=== PATIENT | male | born 1950 | race Caucasian/White ===

== ENCOUNTER 2018-01-14 06:12 | Outpatient (CLI) | payer MEDICARE ==
[~2018-01-14] VITALS: Ht 177.8 cm; Wt 70.3 kg
[2018-01-14] MEDS ORDERED: ALBU1.25 IH (12:38)
[2018-01-14] MEDS ORDERED: FLUT1BLS3 IH (12:38)
[2018-01-14] MEDS ORDERED: ASPI-999 PO (12:38)
[2018-01-14] MEDS ORDERED: CALC-250 PO (12:38)
[2018-01-14] MEDS ORDERED: PRAV40TA2 PO (12:38)
[2018-01-14] MEDS ORDERED: MIRT15TA6 PO (12:38)
[2018-01-14] MEDS ORDERED: MULT-35 PO (12:38)
[2018-01-14] MEDS ORDERED: OMEP20TA7 PO (12:38)
[2018-01-14] MEDS ORDERED: MONT10TA24 PO (12:38)
[2018-01-14] MEDS ORDERED: METO-387 PO (12:38)
[2018-01-14] MEDS ORDERED: FLUT9.9S NS (12:38)
== END 2018-01-14 12:43 | disposition home or self-care (01) ==
LOC: PREOP 06:12
PROVIDERS: ATTEND Internal Medicine Critical Care Medicine
DX: Z01.818 Encounter for other preprocedural examination (principal)

== ENCOUNTER 2018-01-15 08:06 | Day surgery (SDC) | payer MEDICARE, OTHER ==
[~2018-01-15] VITALS: Ht 177.8 cm; Wt 70.3 kg
[~2018-01-15 08:06] MED LIST: ALBU1.25 IH; ASPI-999 PO; CALC-250 PO; FLUT1BLS3 IH; FLUT9.9S NS; METO-387 PO; MIRT15TA6 PO; MONT10TA24 PO; MULT-35 PO; OMEP20TA7 PO; PRAV40TA2 PO
[2018-01-15] MEDS ORDERED: LIDOCAINE JELLY 2% (XYLOCAINE) 30 ML TUBE TOP ONE (08:07)
[2018-01-15] MEDS ORDERED: LIDOCAINE PF 1% 5 ML SYRINGE (ANLIKER/BAILEY ONLY) INJ ONE (08:07)
[2018-01-15] MEDS ORDERED: LIDOCAINE PF 2% 5 ML (XYLOCAINE) VIAL INJ ONE (08:07)
--- OUTSIDE RECORDS SUMMARY | 2018-01-15 08:09 | XMS REPORT | CCD ---
Author Author ROSEMARIE JENNIFER Organization Unknown Address [address] [facility] [address] [place], [place] [id number] Care Team Providers Care Show Host/Hostess Name Role Phone TURNER HORTON, KERRI Suh Attphys KERRI TOMPKINS MD Prisujamaal Vital Signs Unknown or Not Available. Allergies Unknown or Not Available. Procedures Procedure Code Procedure Type Date CX CHEST [address] 03/22/2015 UA ROUTINE C&S IF IND 647590730 SNOMED CT 03/22/2015 TROPONIN-I ADV 282256872 SNOMED CT 03/22/[address] 03/22/2015 D DIMER QUANT 818811999 SNOMED CT 03/22/2015 CULTURE BLOOD 77295070 SNOMED CT 03/22/2015 COMPREHENSIVE METABOLIC PANEL 789739466 SNOMED CT 2014 CBC W/ AUTO DIFF (RFLX MAN DIFF IF IND) 8053812 SNOMED CT 03/22/[address] 03/22/2015 BAN AERO ECLIPSE TREATMENT 82838555 SNOMED CT 03/22/2015 ^CBC W/AUTO DIFF 2230424 SNOMED CT 03/22/2015 ^UA AUTO DIPSTICK ONLY 604145551 SNOMED CT 03/22/2015 History of Immunizations Unknown or Not Available. Problems Problem Code Start Date Resolved Date Status COPD EXACERBATION 44693 Active Results COMPREHENSIVE METABOLIC PANEL - Collect Date/Time: 03/22/2015 21:00 Test Name Code Test Result Test Units Test Ref Range GLUCOSE 2345-7 93 MG/DL L=70 H=100 SODIUM 2951-2 145 MEQ/L L=135 H=148 POTASSIUM 2823-3 3.6 MEQ/L L=3.5 H=5.3 CHLORIDE 2075-0 99 MEQ/L L=96 H=110 CO2 2028-9 36 MEQ/L L=22 H=29 BUN 3094-0 7 MG/DL L=8 H=22 CREATININE 2160-0 1.0 MG/DL L=0.6 H=1.6 SGOT/AST 1920-8 35 IU/L L=10 H=40 SGPT/ALT 1742-6 32 IU/L L=8 H=54 ALK PHOS 6768-6 94 IU/L L=35 H=115 TOTAL PROTEIN 2885-2 7.7 G/DL L=5.5 H=8.5 ALBUMIN 1751-7 4.6 G/DL L=3.1 H=5.4 TOTAL BILI 1975-2 0.3 MG/DL L=0.0 H=1.5 CALCIUM 03800-0 9.6 MG/DL L=8.2 H=10.6 AGE 64 yrs GFR NonAA 76 GFR AA 92 eGFR >60 N/A eGFR AA* >60 N/A CBC W/ AUTO DIFF (RFLX MAN DIFF IF IND) - Collect Date/Time: 03/22/2015 21:00 Test Name Code Test Result Test Units Test Ref Range WBC 10778-5 6.8 TH/CMM L=4.5 H=10.8 RBC 789-8 5.30 ML/CMM L=4.70 H=6.10 HGB 718-7 16.0 G/DL L=14.0 H=18.0 HCT 4544-3 49.7 % L=42.0 H=52.0 MCV 94 FL L=81 H=99 MCH 30.2 PG L=27.0 H=33.0 MCHC 32.2 G/DL L=31.0 H=36.0 RDW SD 49 FL L=36 H=50 RDW CV 14.1 % L=0.0 H=14.8 MPV 10.6 FL L=9.3 H=12.5 PLT 777-3 150 TH/CMM L=130 H=440 NRBC# 0.00 TH/CMM L=0.00 H=0.00 NRBC% 0.0 /100WBC L=0.0 H=2.0 %NEUT 76.8 % %LYMP 10.4 % %MONO 11.9 % %EOS 0.6 % %BASO 0.3 % #NEUT 5.24 TH/CMM L=2.10 H=8.20 #LYMP 0.71 TH/CMM L=0.90 H=5.20 #MONO 0.81 TH/CMM L=0.16 H=1.00 #EOS 0.04 TH/CMM L=0.00 H=0.80 #BASO 0.02 TH/CMM L=0.00 H=0.20 MANUAL DIFF NOT IND N/A D DIMER QUANT - Collect Date/Time: 03/22/2015 21:00 Test Name Code Test Result Test Units Test Ref Range D-DIMER QUANT 03115-8 0.23 MG/L FEU L=0.00 H= 0.50 PT/PTT - Collect Date/Time: 03/22/2015 21:00 Test Name Code Test Result Test Units Test Ref Range PROTIME 90955-8 11.7 SEC L=9.9 H=11.9 INR 1.2 PTT 3173-2 27.8 SEC L=22.2 H=37.2 UA ROUTINE C&S IF IND - Collect Date/Time: 03/22/2015 22:30 Test Name Code Test Result Test Units Test Ref Range COLOR YELLOW N/A NL: YELLOW APPEARANCE CLEAR N/A NL: CLEAR SPEC GRAV <=1.005 N/A NL: 1.002 - 1.022 pH 7.0 N/A NL: 5 - 9 PROTEIN NEGATIVE N/A NL: NEGATIVE mg/dl GLUCOSE NEGATIVE N/A NL: NEGATIVE mg/dl KETONE NEGATIVE N/A NL: NEGATIVE mg/dl BILIRUBIN NEGATIVE N/A NL: NEGATIVE BLOOD NEGATIVE N/A NL: NEGATIVE NITRITE NEGATIVE N/A NL: NEGATIVE LEUK SCREEN NEGATIVE N/A NL: NEGATIVE MICRO INDICATED? NOT INDICATED N/A BNP - Collect Date/Time: 03/22/2015 21:00 Test Name Code Test Result Test Units Test Ref Range BNP 67033-6 19 PG/ML L=0 H=100 TROPONIN-I ADV - Collect Date/Time: 03/22/2015 21:00 Test Name Code Test Result Test Units [place] [address]-3 <0.04 ng/mL L=0.04 H= 0.40 MAGNESIUM - Collect Date/Time: 03/22/2015 21:00 Test Name Code Test Result Test Units Test Ref Range MAGNESIUM 16109-0 2.2 MG/DL L=1.7 H=2.8 Active Medications Unknown or Not Available. Medications Administered During Visit Unknown or Not Available. Encounters Encounter Diagnosis Diagnosis Code Start Date Localized edema R600 03/22/2015 Social History Smoking Status Code Start Date End Date Never smoker [id number] Patient Decision Aids Unknown or Not Available. Discharge Instructions You were admitted to [facility] on 03/22/2015 with a principal diagnosis of Localized edema. You were discharged from [facility] on 03/22/2015. Should you have any questions prior to discharge, please contact a member of your healthcare team. If you have left the hospital and have any questions, please contact your primary care physician. Chief Complaint and Reason For Visit Chief Complaint Date of Onset FEET SWELLING URINARY PROBLEM Function Status Unknown or Not Available. Plan of Care Unknown or Not Available. Referral/Transition of Care Unknown or Not Available.
--- OUTSIDE RECORDS SUMMARY | 2018-01-15 08:10 | XMS REPORT | CCD ---
Author Author LATIA FIELDS Organization Unknown Address [address] [facility] [address] [place], [place] [id number] Care Team Providers Care Shuttle Repairer Name Role Phone MISA PHYS, SOFIA ER Attphys MISA PHYS, SOFIA ER Prisurg Vital Signs Unknown or Not Available. Allergies Unknown or Not Available. Procedures Procedure Code Procedure Type Date CBC W/ AUTO DIFF (RFLX MAN DIFF IF IND) 7766466 SNOMED CT 04/05/2015 COMPREHENSIVE METABOLIC PANEL 450656199 SNOMED CT 2014 UA ROUTINE C&S IF IND 780294869 SNOMED CT 04/05/2015 ^CBC W/AUTO DIFF 4584505 SNOMED CT 04/05/2015 ^UA AUTO DIPSTICK ONLY 249991690 SNOMED CT 04/05/2015 CT ABD AND PELVIS W/O CONTRAST 224583846 SNOMED CT 2014 History of Immunizations Unknown or Not Available. Problems Problem Code Start Date Resolved Date Status COPD EXACERBATION 54853 Active Results COMPREHENSIVE METABOLIC PANEL - Collect Date/Time: 04/05/2015 17:00 Test Name Code Test Result Test Units Test Ref Range GLUCOSE 2345-7 85 MG/DL L=70 H=100 SODIUM 2951-2 141 MEQ/L L=135 H=148 POTASSIUM 2823-3 3.7 MEQ/L L=3.5 H=5.3 CHLORIDE 2075-0 96 MEQ/L L=96 H=110 CO2 2028-9 33 MEQ/L L=22 H=29 BUN 3094-0 12 MG/DL L=8 H=22 CREATININE 2160-0 0.9 MG/DL L=0.6 H=1.6 SGOT/AST 1920-8 33 IU/L L=10 H=40 SGPT/ALT 1742-6 36 IU/L L=8 H=54 ALK PHOS 6768-6 88 IU/L L=35 H=115 TOTAL PROTEIN 2885-2 7.4 G/DL L=5.5 H=8.5 ALBUMIN 1751-7 4.6 G/DL L=3.1 H=5.4 TOTAL BILI 1975-2 0.5 MG/DL L=0.0 H=1.5 CALCIUM 53644-9 10.0 MG/DL L=8.2 H=10.6 AGE 64 yrs GFR NonAA 86 GFR AA 104 eGFR >60 N/A eGFR AA* >60 N/A CBC W/ AUTO DIFF (RFLX MAN DIFF IF IND) - Collect Date/Time: 04/05/2015 17:00 Test Name Code Test Result Test Units Test Ref Range WBC 84926-0 7.9 TH/CMM L=4.5 H=10.8 RBC 789-8 5.29 ML/CMM L=4.70 H=6.10 HGB 718-7 15.9 G/DL L=14.0 H=18.0 HCT 4544-3 48.8 % L=42.0 H=52.0 MCV 92 FL L=81 H=99 MCH 30.1 PG L=27.0 H=33.0 MCHC 32.6 G/DL L=31.0 H=36.0 RDW SD 47 FL L=36 H=50 RDW CV 13.8 % L=0.0 H=14.8 MPV 10.9 FL L=9.3 H=12.5 PLT 777-3 198 TH/CMM L=130 H=440 NRBC# 0.00 TH/CMM L=0.00 H=0.00 NRBC% 0.0 /100WBC L=0.0 H=2.0 %NEUT 78.5 % %LYMP 10.7 % %MONO 10.2 % %EOS 0.5 % %BASO 0.1 % #NEUT 6.17 TH/CMM L=2.10 H=8.20 #LYMP 0.84 TH/CMM L=0.90 H=5.20 #MONO 0.80 TH/CMM L=0.16 H=1.00 #EOS 0.04 TH/CMM L=0.00 H=0.80 #BASO 0.01 TH/CMM L=0.00 H=0.20 MANUAL DIFF NOT IND N/A UA ROUTINE C&S IF IND - Collect Date/Time: 04/05/2015 18:30 Test Name Code Test Result Test Units Test Ref Range COLOR YELLOW N/A NL: YELLOW APPEARANCE CLEAR N/A NL: CLEAR SPEC GRAV 1.010 N/A NL: 1.002 - 1.022 pH 7.5 N/A NL: 5 - 9 PROTEIN NEGATIVE N/A NL: NEGATIVE mg/dl GLUCOSE NEGATIVE N/A NL: NEGATIVE mg/dl KETONE TRACE N/A NL: NEGATIVE mg/dl BILIRUBIN NEGATIVE N/A NL: NEGATIVE BLOOD NEGATIVE N/A NL: NEGATIVE NITRITE NEGATIVE N/A NL: NEGATIVE LEUK SCREEN NEGATIVE N/A NL: NEGATIVE MICRO INDICATED? NOT INDICATED N/A Active Medications Medication Code Dose Units Frequency Route Modification Start Date/Time Advair Diskus 500/50 0.5MG-0.05MG/Actuati Inhalation Disk 492213 1 PUFF TWO TIMES A DAY INHALATION 2014 10:37 Prescription Detail 1 PUFF INHALATION TWO TIMES A DAY Diltiazem HCl 60MG Oral Tablet 886942 90 MILLIGRAMS TWO TIMES A DAY BY MOUTH 05/01/2015 10:37 Prescription Detail 90 MILLIGRAMS BY MOUTH TWO TIMES A DAY Protonix 40MG Oral Tablet, Enteric Coated 781610 40 MILLIGRAMS DAILY BY MOUTH 05/01/2015 10:37 Prescription Detail 40 MILLIGRAMS BY MOUTH DAILY Singulair 10MG Oral Tablet 799447 10 MILLIGRAMS BEDTIME BY MOUTH 05/01/2015 10:37 Prescription Detail 10 MILLIGRAMS BY MOUTH BEDTIME Atorvastatin Calcium 80MG Oral Tablet 278998 80 MILLIGRAMS AT BEDTIME ORAL 05/01/2015 10:36 Prescription Detail 80 MILLIGRAMS ORAL AT BEDTIME Gabapentin 300MG Oral Capsule 087730 300 MILLIGRAMS AT BEDTIME BY MOUTH 05/01/2015 10:36 Prescription Detail 300 MILLIGRAMS BY MOUTH AT BEDTIME ProAir HFA 0.09MG/1 INH Inhalation Aerosol Powder 361375 1 EACH 1 puff every 4-6 hrs. INHALATION 2014 10:36 Prescription Detail 1 EACH INHALATION 1 puff every 4-6 hrs. Medications Administered During Visit Unknown or Not Available. Encounters Encounter Diagnosis Diagnosis Code Start Date Enlarged prostate without lower urinary tract symptoms N400 04/05 Social History Smoking Status Code Start Date End Date Never smoker [id number] Patient Decision Aids Unknown or Not Available. Discharge Instructions You were admitted to [facility] on 04/05/2015 with a principal diagnosis of Enlarged prostate without lower urinary tract symptoms. You were discharged from [facility] on 04/05/2015. Should you have any questions prior to discharge, please contact a member of your healthcare team. If you have left the hospital and have any questions, please contact your primary care physician. Chief Complaint and Reason For Visit Chief Complaint Date of Onset DISORIENTED ABD PAIN Function Status Unknown or Not Available. Plan of Care Unknown or Not Available. Referral/Transition of Care Unknown or Not Available.
--- OUTSIDE RECORDS SUMMARY | 2018-01-15 08:11 | XMS REPORT | CCD ---
Author Author LATIA FIELDS Organization Unknown Address [address] [facility] [address] [place], [place] [id number] Care Team Providers Care Building Attendant Name Role Phone NARGISYAYA HYDEEsequiel LEAL Attphys SUSANA ONTIVEROS, DEE DEE HORTON Prisurg S., DIXON Yee NASST C., JAIME NASST G., MILTON NASST F., FILIPE NASST S., DUSTIN NASST B., MELANI Akers NASST S., MAGED NASST R., GUILLERMO Man NASST H., MURPHY Frye NASST F., ANETA NASST R., GIOVANNI NASST S., ZACHERY NASST F., CLAIRE NASST A., MAURICIO NASST K., IVANNA NASST S., RYANN Mendiola NASST Vital Signs Vital Sign Value Unit Date/Time Recent/Initial? BP Systolic 103 mmHg 04/25/2015 19:35 Initial VS BP Diastolic 86 mmHg 04/25/2015 19:35 Initial VS Respiratory Rate 18 bpm 04/25/2015 19:37 Initial VS Heart Rate 102 bpm 04/25/2015 19:37 Initial VS O2 % BldC Oximetry 94 % 04/25/2015 19:37 Initial VS Weight Measured 141.3 lbs 04/25/2015 20:30 Initial VS Height 72 in 04/25/2015 20:30 Initial VS BMI (Body Mass Index) 19.16 kg/m^2 04/25/2015 20:30 Initial VS BSA (Body Surface Area) 1.8 m^2 04/25/2015 20:30 Initial VS Body Temperature 98.8 degrees 04/25/2015 20:30 Initial VS Weight Measured 138.9 lbs 05/01/2015 04:23 Most Recent VS Height 70 in 05/01/2015 04:23 Most Recent VS BMI (Body Mass Index) 19.93 kg/m^2 05/01/2015 04:23 Most Recent VS BSA (Body Surface Area) 1.76 m^2 05/01/2015 04:23 Most Recent VS BP Systolic 158 mmHg 05/01/2015 07:56 Most Recent VS BP Diastolic 91 mmHg 05/01/2015 07:56 Most Recent VS Respiratory Rate 18 bpm 05/01/2015 07:56 Most Recent VS Heart Rate 96 bpm 05/01/2015 07:56 Most Recent VS O2 % BldC Oximetry 98 % 05/01/2015 07:56 Most Recent VS Body Temperature 96.7 degrees 05/01/2015 07:56 Most Recent VS Allergies Allergy Code Allergy Type Reaction Status SULFA (sulfonamide) 0 Drug allergy OTHER Active penicillin {Clinical monitoring unavailable} 0 Drug allergy UNKNOWN Active Procedures Procedure Code Procedure Type Date Respiratory Ventilation, Less than 24 Consecutive Hours [id number] ICD-10 PCS 04/25/2015 Insertion of Endotracheal Airway into Trachea, Via Natural or Artificial O [id number] ICD-10 PCS 04/25/2015 [facility] A[facility] ECLIPSE TREATMENT 96910659 SNOMED CT 04/25/[address] 04/25/2015 CPAP/BiPAP 091729975 SNOMED CT 04/25/[address] AB[address] 04/25/2015 CPAP/BIPAP INITIATION & MANAGEMENT 08752920 SNOMED CT CPAP/BIPAP PER HOUR 40170897 SNOMED CT 04/25/2015 OXYGEN/HOUR 995456727 SNOMED CT 04/25/2015 VENTILATOR MGNT INITIAL DAY 848746723 SNOMED CT 2014 VENTILATOR MGNT SUBSEQUENT DAY 875921114 SNOMED CT 2014 OXYGEN TRANSPORT 803024291 SNOMED CT 04/25/2015 ABG DRAW 34343960 SNOMED CT 04/26/2015 ABG DRAW 72913399 SNOMED CT 04/25/2015 [facility] AERO ECLIPSE TREATMENT 76899729 SNOMED CT 04/25/2015 BAN AERO ECLIPSE TREATMENT #[address] 2014 ABG DRAW 71721057 SNOMED CT 04/25/2015 BAN AERO ECLIPSE TREATMENT 65836509 SNOMED CT 04/26/2015 [facility] AERO ECLIPSE TREATMENT 09739874 SNOMED CT 04/26/2015 BAN AERO ECLIPSE TREATMENT 05910111 SNOMED CT 04/26/2015 BAN AERO ECLIPSE TREATMENT 18963181 SNOMED CT 04/26/2015 BAN AERO ECLIPSE TREATMENT 51511487 SNOMED CT 04/26/2015 BAN AERO ECLIPSE TREATMENT 26310789 SNOMED CT 04/26/2015 BAN AERO ECLIPSE TREATMENT #[address] 2014 BAN AERO ECLIPSE TREATMENT #[address] 2014 OXYGEN/HOUR 597905344 SNOMED CT 04/26/2015 OXYGEN/HOUR 080744479 SNOMED CT 04/26/2015 ABG DRAW 06725301 SNOMED CT 04/25/2015 ABG DRAW 87455531 SNOMED CT 04/26/2015 ABG DRAW 64238799 SNOMED CT 04/26/2015 BAN AERO ECLIPSE TREATMENT 37247097 SNOMED CT 04/27/2015 BAN AERO ECLIPSE TREATMENT 94801675 SNOMED CT 04/27/2015 BAN AERO ECLIPSE TREATMENT 62376523 SNOMED CT 04/27/2015 BAN AERO ECLIPSE TREATMENT 82836061 SNOMED CT 04/27/2015 BAN AERO ECLIPSE TREATMENT 87232006 SNOMED CT 04/27/2015 BAN AERO ECLIPSE TREATMENT 14274855 SNOMED CT 04/27/2015 BAN AERO ECLIPSE TREATMENT #[address] 2014 BAN AERO ECLIPSE TREATMENT #[address] 2014 OXYGEN/HOUR 739169422 SNOMED CT 04/27/2015 OXYGEN/HOUR 339728601 SNOMED CT 04/27/2015 MDI 1ST MED 098139856 SNOMED CT 04/27/2015 MDI 1ST MED 185146744 SNOMED CT 04/28/2015 MDI 1ST MED 803218812 SNOMED CT 04/28/2015 [facility]AN AERO ECLIPSE TREATMENT 18816874 SNOMED CT 04/28/2015 [facility]AN AERO ECLIPSE TREATMENT 80848696 SNOMED CT 04/28/2015 BAN AERO ECLIPSE TREATMENT 64330964 SNOMED CT 04/28/2015 BAN AERO ECLIPSE TREATMENT 44396936 SNOMED CT 04/28/2015 BAN AERO ECLIPSE TREATMENT 01407295 SNOMED CT 04/28/2015 BAN AERO ECLIPSE TREATMENT 58055092 SNOMED CT 04/28/2015 BAN AERO ECLIPSE TREATMENT #[address] 2014 BAN AERO ECLIPSE TREATMENT #[address] 2014 OXYGEN/HOUR 286496846 SNOMED CT 04/28/2015 OXYGEN/HOUR 601834390 SNOMED CT 04/28/2015 MDI 1ST MED 438383077 SNOMED CT 04/29/2015 MDI 1ST MED 168875285 SNOMED CT 04/29/2015 BAN AERO ECLIPSE TREATMENT 58903181 SNOMED CT 04/29/2015 BAN AERO ECLIPSE TREATMENT 41064340 SNOMED CT 04/29/2015 BAN AERO ECLIPSE TREATMENT 41338051 SNOMED CT 04/29/2015 BAN AERO ECLIPSE TREATMENT 48613906 SNOMED CT 04/29/2015 BAN AERO ECLIPSE TREATMENT 64989748 SNOMED CT 04/29/2015 BAN AERO ECLIPSE TREATMENT 07724417 SNOMED CT 04/29/2015 BAN AERO ECLIPSE TREATMENT #[address] 2014 BAN AERO ECLIPSE TREATMENT #[address] 2014 OXYGEN/HOUR 482706499 SNOMED CT 04/29/2015 OXYGEN/HOUR 104822701 SNOMED CT 04/29/2015 MDI 1ST MED 914201052 SNOMED CT 04/30/2015 MDI 1ST MED 154320327 SNOMED CT 04/30/2015 BAN AERO ECLIPSE TREATMENT 46509237 SNOMED CT 04/30/2015 BAN AERO ECLIPSE TREATMENT 03669170 SNOMED CT 04/30/2015 BAN AERO ECLIPSE TREATMENT 45820928 SNOMED CT 04/30/2015 BAN AERO ECLIPSE TREATMENT 34553315 SNOMED CT 04/30/2015 BAN AERO ECLIPSE TREATMENT 86724941 SNOMED CT 04/30/2015 BAN AERO ECLIPSE TREATMENT 88088250 SNOMED CT 04/30/2015 BAN AERO ECLIPSE TREATMENT #[address] 2014 BAN AERO ECLIPSE TREATMENT #[address] 2014 OXYGEN/HOUR 986219981 SNOMED CT 04/30/2015 OXYGEN/HOUR 966131024 SNOMED CT 04/30/2015 [facility] 05/01/2015 BAN AERO ECLIPSE TREATMENT 63845848 SNOMED CT 05/01/2015 BAN AERO ECLIPSE TREATMENT 68139266 SNOMED CT 05/01/2015 BAN AERO ECLIPSE TREATMENT 03140909 SNOMED CT 05/01/2015 BAN AERO ECLIPSE TREATMENT #[address] 2014 OXYGEN/HOUR 246662988 SNOMED CT 05/01/2015 CBC W/ AUTO DIFF (RFLX MAN DIFF IF IND) 8188239 SNOMED CT 04/25/2015 COMPREHENSIVE METABOLIC PANEL 789984178 SNOMED CT [address] 04/25/[address] 04/25/2015 TROPONIN-I ADV 177688890 SNOMED CT 04/25/[address] 04/25/[address] 04/25/2015 C REACTIVE PROTEIN 54618830 SNOMED CT 04/25/2015 UA ROUTINE C&S IF IND 339967261 SNOMED CT 04/25/[address] 04/25/2015 RAPID DRUG SCREEN 378515786 SNOMED [address] 04/25/[address] 04/25/[address] 04/25/[address] 04/25/2015 D DIMER QUANT 081816612 SNOMED CT 04/25/[address] 04/25/2015 ^CBC W/ MANUAL DIFF 25639198 SNOMED CT 04/25/2015 ^UA WITH MICRO 695199560 SNOMED CT 04/25/2015 CULTURE BLOOD 97919943 SNOMED CT 04/25/2015 CULTURE BLOOD 10614130 SNOMED CT 04/25/2015 LACTIC ACID 9133254 SNOMED [address] 04/25/2015 LACTIC ACID 5681319 SNOM[address] 04/25/2015 TROPONIN-I ADV 978881524 SNOMED CT 04/25/2015 GRAM STAIN 13908103 SNOMED CT 04/25/2015 TROPONIN-I ADV 312543399 SNOMED CT 04/26/2015 CULTURE SPUTUM 012090507 SNOMED CT 04/25/[address] 04/26/2015 CBC W/ AUTO DIFF (RFLX MAN DIFF IF IND) 9994280 SNOMED CT 04/26/2015 COMPREHENSIVE METABOLIC PANEL 429133701 SNOMED CT [address] 04/25/2015 GRAM STAIN 79022042 SNOMED CT 04/25/[address] 04/25/2015 INFLUENZA A & B 609688860 SNOMED CT 04/25/2015 CULTURE NASAL 930088803 SNOMED CT 04/25/[address] 04/26/[address] 04/25/2015 LACTIC ACID 1097602 SNOMED [address] 04/26/[address] 04/25/2015 ^CBC W/ MANUAL DIFF 07886415 SNOMED CT 04/26/[address] 04/26/[address] 04/26/2015 VANCOMYCIN TROUGH 757219216 SNOMED CT 04/27/2015 CBC W/ AUTO DIFF (RFLX MAN DIFF IF IND) 5854875 SNOMED CT 04/27/2015 COMPREHENSIVE METABOLIC PANEL 217955941 SNOMED CT [address] 04/27/[address] 04/27/2015 ^CBC W/ MANUAL DIFF 26820884 SNOMED CT 04/27/2015 CBC W/ AUTO DIFF (RFLX MAN DIFF IF IND) 5891890 SNOMED CT 04/28/2015 COMPREHENSIVE METABOLIC PANEL 384785417 SNOMED CT 2014 ^CBC W/ MANUAL DIFF 84899251 SNOMED CT 04/28/2015 CBC W/ AUTO DIFF (RFLX MAN DIFF IF IND) 7381632 SNOMED CT 04/29/2015 COMPREHENSIVE METABOLIC PANEL 860455246 SNOMED CT 2014 ^CBC W/ MANUAL DIFF 32407583 SNOMED CT 04/29/2015 CBC W/ AUTO DIFF (RFLX MAN DIFF IF IND) 7428066 SNOMED CT 04/30/2015 BASIC METABOLIC PANEL 598891243 SNOMED CT 04/30/2015 ^CBC W/ MANUAL DIFF 46260901 SNOMED CT 04/30/2015 C DIFF NAAT 909625228 SNOMED CT 04/30/2015 OCCULT BLOOD iFOBT 316980154 SNOMED CT 04/30/2015 CBC W/ AUTO DIFF (RFLX MAN DIFF IF IND) 1098364 SNOMED CT 05/01/2015 BASIC METABOLIC PANEL 751060205 SNOMED CT 05/01/2015 ^CBC W/ MANUAL DIFF 71535233 SNOMED CT 05/01/2015 CX CHEST [address] 04/25/2015 CT HEAD W/O CONTRAST 288859841 SNOMED CT 04/25/2015 CX CHEST [address] 04/25/2015 CX CHEST [address] 04/26/2015 CX CHEST [address] 04/25/2015 US ECHO 2D COMP WITH DOPP AND COLOR 71650499 SNOMED CT CX CHEST [address] 04/27/2015 CX CHEST [address] 04/28/2015 PT GAIT TRAINING/STAIRS EA [address] 04/29 PT EVALUATION 482755273 SNOMED CT 04/28/2015 History of Immunizations Unknown or Not Available. Problems Problem Code Start Date Resolved Date Status COPD EXACERBATION 00876 Active Results BASIC METABOLIC PANEL - Collect Date/Time: 05/01/2015 06:25 Test Name Code Test Result Test Units Test Ref Range GLUCOSE 2345-7 96 MG/DL L=70 H=100 SODIUM 2951-2 138 MEQ/L L=135 H=148 POTASSIUM 2823-3 4.1 MEQ/L L=3.5 H=5.3 CHLORIDE 2075-0 91 MEQ/L L=96 H=110 CO2 2028-9 38 MEQ/L L=22 H=29 BUN 3094-0 21 MG/DL L=8 H=22 CREATININE 2160-0 0.8 MG/DL L=0.6 H=1.6 CALCIUM 41603-4 8.9 MG/DL L=8.2 H=10.6 AGE 64 yrs GFR NonAA 98 GFR AA 119 eGFR >60 N/A eGFR AA* >60 N/A BASIC METABOLIC PANEL - Collect Date/Time: 04/30/2015 06:25 Test Name Code Test Result Test Units Test Ref Range GLUCOSE 2345-7 90 MG/DL L=70 H=100 SODIUM 2951-2 139 MEQ/L L=135 H=148 POTASSIUM 2823-3 4.2 MEQ/L L=3.5 H=5.3 CHLORIDE 2075-0 91 MEQ/L L=96 H=110 CO2 2028-9 40 MEQ/L L=22 H=29 BUN 3094-0 19 MG/DL L=8 H=22 CREATININE 2160-0 0.7 MG/DL L=0.6 H=1.6 CALCIUM 03837-3 8.9 MG/DL L=8.2 H=10.6 AGE 64 yrs GFR NonAA 114 GFR AA 138 eGFR >60 N/A eGFR AA* >60 N/A COMPREHENSIVE METABOLIC PANEL - Collect Date/Time: 04/29/2015 05:15 Test Name Code Test Result Test Units Test Ref Range GLUCOSE 2345-7 133 MG/DL L=70 H=100 SODIUM 2951-2 139 MEQ/L L=135 H=148 POTASSIUM 2823-3 3.9 MEQ/L L=3.5 H=5.3 CHLORIDE 2075-0 94 MEQ/L L=96 H=110 CO2 2028-9 38 MEQ/L L=22 H=29 BUN 3094-0 22 MG/DL L=8 H=22 CREATININE 2160-0 0.7 MG/DL L=0.6 H=1.6 SGOT/AST 1920-8 29 IU/L L=10 H=40 SGPT/ALT 1742-6 187 IU/L L=8 H=54 ALK PHOS 6768-6 90 IU/L L=35 H=115 TOTAL PROTEIN 2885-2 5.5 G/DL L=5.5 H=8.5 ALBUMIN 1751-7 3.3 G/DL L=3.1 H=5.4 TOTAL BILI 1975-2 0.2 MG/DL L=0.0 H=1.5 CALCIUM 48771-3 8.5 MG/DL L=8.2 H=10.6 AGE 64 yrs GFR NonAA 114 GFR AA 138 eGFR >60 N/A eGFR AA* >60 N/A COMPREHENSIVE METABOLIC PANEL - Collect Date/Time: 04/28/2015 05:10 Test Name Code Test Result Test Units Test Ref Range GLUCOSE 2345-7 138 MG/DL L=70 H=100 SODIUM 2951-2 140 MEQ/L L=135 H=148 POTASSIUM 2823-3 3.6 MEQ/L L=3.5 H=5.3 CHLORIDE 2075-0 91 MEQ/L L=96 H=110 CO2 2028-9 38 MEQ/L L=22 H=29 BUN 3094-0 20 MG/DL L=8 H=22 CREATININE 2160-0 0.8 MG/DL L=0.6 H=1.6 SGOT/AST 1920-8 43 IU/L L=10 H=40 SGPT/ALT 1742-6 258 IU/L L=8 H=54 ALK PHOS 6768-6 88 IU/L L=35 H=115 TOTAL PROTEIN 2885-2 5.6 G/DL L=5.5 H=8.5 ALBUMIN 1751-7 3.3 G/DL L=3.1 H=5.4 TOTAL BILI 1975-2 0.3 MG/DL L=0.0 H=1.5 CALCIUM 43252-5 8.5 MG/DL L=8.2 H=10.6 AGE 64 yrs GFR NonAA 98 GFR AA 119 eGFR >60 N/A eGFR AA* >60 N/A COMPREHENSIVE METABOLIC PANEL - Collect Date/Time: 04/27/2015 05:05 Test Name Code Test Result Test Units Test Ref Range GLUCOSE 2345-7 131 MG/DL L=70 H=100 SODIUM 2951-2 139 MEQ/L L=135 H=148 POTASSIUM 2823-3 4.0 MEQ/L L=3.5 H=5.3 CHLORIDE 2075-0 98 MEQ/L L=96 H=110 CO2 2028-9 34 MEQ/L L=22 H=29 BUN 3094-0 18 MG/DL L=8 H=22 CREATININE 2160-0 0.7 MG/DL L=0.6 H=1.6 SGOT/AST 1920-8 84 IU/L L=10 H=40 SGPT/ALT 1742-6 358 IU/L L=8 H=54 ALK PHOS 6768-6 89 IU/L L=35 H=115 TOTAL PROTEIN 2885-2 5.6 G/DL L=5.5 H=8.5 ALBUMIN 1751-7 3.4 G/DL L=3.1 H=5.4 TOTAL BILI 1975-2 0.4 MG/DL L=0.0 H=1.5 CALCIUM 63481-9 8.6 MG/DL L=8.2 H=10.6 AGE 64 yrs GFR NonAA 114 GFR AA 138 eGFR >60 N/A eGFR AA* >60 N/A COMPREHENSIVE METABOLIC PANEL - Collect Date/Time: 04/26/2015 05:15 Test Name Code Test Result Test Units Test Ref Range GLUCOSE 2345-7 124 MG/DL L=70 H=100 SODIUM 2951-2 134 MEQ/L L=135 H=148 POTASSIUM 2823-3 4.6 MEQ/L L=3.5 H=5.3 CHLORIDE 2075-0 98 MEQ/L L=96 H=110 CO2 2028-9 29 MEQ/L L=22 H=29 BUN 3094-0 25 MG/DL L=8 H=22 CREATININE 2160-0 0.9 MG/DL L=0.6 H=1.6 SGOT/AST 1920-8 236 IU/L L=10 H=40 SGPT/ALT 1742-6 492 IU/L L=8 H=54 ALK PHOS 6768-6 98 IU/L L=35 H=115 TOTAL PROTEIN 2885-2 5.4 G/DL L=5.5 H=8.5 ALBUMIN 1751-7 3.2 G/DL L=3.1 H=5.4 TOTAL BILI 1975-2 0.4 MG/DL L=0.0 H=1.5 CALCIUM 91958-4 8.3 MG/DL L=8.2 H=10.6 AGE 64 yrs GFR NonAA 86 GFR AA 104 eGFR >60 N/A eGFR AA* >60 N/A COMPREHENSIVE METABOLIC PANEL - Collect Date/Time: 04/25/2015 15:25 Test Name Code Test Result Test Units Test Ref Range GLUCOSE 2345-7 136 MG/DL L=70 H=100 SODIUM 2951-2 130 MEQ/L L=135 H=148 POTASSIUM 2823-3 5.1 MEQ/L L=3.5 H=5.3 CHLORIDE 2075-0 82 MEQ/L L=96 H=110 CO2 2028-9 32 MEQ/L L=22 H=29 BUN 3094-0 27 MG/DL L=8 H=22 CREATININE 2160-0 1.5 MG/DL L=0.6 H=1.6 SGOT/AST 1920-8 194 IU/L L=10 H=40 SGPT/ALT 1742-6 330 IU/L L=8 H=54 ALK PHOS 6768-6 148 IU/L L=35 H=115 TOTAL PROTEIN 2885-2 8.6 G/DL L=5.5 H=8.5 ALBUMIN 1751-7 5.1 G/DL L=3.1 H=5.4 TOTAL BILI 1975-2 0.9 MG/DL L=0.0 H=1.5 CALCIUM 95012-5 10.1 MG/DL L=8.2 H=10.6 AGE 64 yrs GFR NonAA 47 GFR AA 57 eGFR 47 mL/min/1.7 eGFR AA* 57 mL/min/1.7 LIPASE - Collect Date/Time: 04/25/2015 15:25 Test Name Code Test Result Test Units Test Ref Range LIPASE 3040-3 17 U/L L=8 H=78 ACETAMINOPHEN - Collect Date/Time: 04/25/2015 15:25 Test Name Code Test Result Test Units Test Ref Range ACETAMINOPHEN 3298-7 <0.60 UG/ML ALCOHOL - Collect Date/Time: 04/25/2015 15:25 Test Name Code Test Result Test Units Test Ref Range ETHANOL 5640-8 <10 MG/DL RAPID DRUG SCREEN - Collect Date/Time: 04/25/2015 16:45 Test Name Code Test Result Test Units Test Ref Range Cannabinoids (THC) NEGATIVE N/A NEG: < 50 ng/ ml Phencyclidine (PCP) NEGATIVE N/A NEG: < 25 ng/ ml Cocaine NEGATIVE N/A NEG: < 300 ng/ml Methamphetamine NEGATIVE N/A NEG: < 1000 ng/ml Opiates NEGATIVE N/A NEG: < 300 ng/ml Amphetamine NEGATIVE N/A NEG: < 1000 ng/ml Benzodiazepines NEGATIVE N/A NEG: < 300 ng/ml Tricyclic Antidepres NEGATIVE N/A NEG: < 300 ng/ ml Methadone NEGATIVE N/A NEG: < 300 ng/ml Barbiturates NEGATIVE N/A NEG: < 200 ng/ml Oxycodone NEGATIVE N/A NEG: < 100 ng/ml Propoxyphene (PPX) NEGATIVE N/A NEG: < 300 ng/ ml SALICYLATE - Collect Date/Time: 04/25/2015 15:25 Test Name Code Test Result Test Units Test Ref Range SALICYLATE 4023-8 <5.0 MG/DL L=0.0 H=45.0 VANCOMYCIN TROUGH - Collect Date/Time: 04/27/2015 13:35 Test Name Code Test Result Test Units Test Ref Range VANC TROUGH 4092-3 13.1 UG/ML L=10.0 H=20.0 CBC W/ AUTO DIFF (RFLX MAN DIFF IF IND) - Collect Date/Time: 05/01/2015 06:25 Test Name Code Test Result Test Units Test Ref Range WBC 13409-5 11.5 TH/CMM L=4.5 H=10.8 RBC 789-8 4.57 ML/CMM L=4.70 H=6.10 HGB 718-7 13.4 G/DL L=14.0 H=18.0 HCT 4544-3 42.0 % L=42.0 H=52.0 MCV 92 FL L=81 H=99 MCH 29.3 PG L=27.0 H=33.0 MCHC 31.9 G/DL L=31.0 H=36.0 RDW SD 49 FL L=36 H=50 RDW CV 14.6 % L=0.0 H=14.8 MPV 9.3 FL L=9.3 H=12.5 PLT 777-3 201 TH/CMM L=130 H=440 NRBC# 0.00 TH/CMM L=0.00 H=0.00 NRBC% 0.0 /100WBC L=0.0 H=2.0 %NEUT 84.4 % %LYMP 9.1 % %MONO 6.3 % %EOS 0.1 % %BASO 0.1 % #NEUT 9.70 TH/CMM L=2.10 H=8.20 #LYMP 1.05 TH/CMM L=0.90 H=5.20 #MONO 0.73 TH/CMM L=0.16 H=1.00 #EOS 0.01 TH/CMM L=0.00 H=0.80 #BASO 0.01 TH/CMM L=0.00 H=0.20 SEGS 84 % BANDS 1 % LYMPHS 8 % MONOS 7 % MANUAL DIFF SEE BELOW N/A CBC W/ AUTO DIFF (RFLX MAN DIFF IF IND) - Collect Date/Time: 04/30/2015 06:25 Test Name Code Test Result Test Units Test Ref Range WBC 45201-7 11.8 TH/CMM L=4.5 H=10.8 RBC 789-8 4.50 ML/CMM L=4.70 H=6.10 HGB 718-7 13.1 G/DL L=14.0 H=18.0 HCT 4544-3 41.8 % L=42.0 H=52.0 MCV 93 FL L=81 H=99 MCH 29.1 PG L=27.0 H=33.0 MCHC 31.3 G/DL L=31.0 H=36.0 RDW SD 51 FL L=36 H=50 RDW CV 14.8 % L=0.0 H=14.8 MPV 9.2 FL L=9.3 H=12.5 PLT 777-3 202 TH/CMM L=130 H=440 NRBC# 0.00 TH/CMM L=0.00 H=0.00 NRBC% 0.0 /100WBC L=0.0 H=2.0 %NEUT 84.2 % %LYMP 5.2 % %MONO 10.6 % %EOS 0.0 % %BASO 0.0 % #NEUT 9.96 TH/CMM L=2.10 H=8.20 #LYMP 0.62 TH/CMM L=0.90 H=5.20 #MONO 1.25 TH/CMM L=0.16 H=1.00 #EOS 0.00 TH/CMM L=0.00 H=0.80 #BASO 0.00 TH/CMM L=0.00 H=0.20 SEGS 87 % BANDS 1 % LYMPHS 5 % MONOS 7 % MANUAL DIFF SEE BELOW N/A ATYP LYMPHS 2+ N/A CBC W/ AUTO DIFF (RFLX MAN DIFF IF IND) - Collect Date/Time: 04/29/2015 05:15 Test Name Code Test Result Test Units Test Ref Range WBC 09371-5 15.5 TH/CMM L=4.5 H=10.8 RBC 789-8 4.26 ML/CMM L=4.70 H=6.10 HGB 718-7 12.5 G/DL L=14.0 H=18.0 HCT 4544-3 39.4 % L=42.0 H=52.0 MCV 93 FL L=81 H=99 MCH 29.3 PG L=27.0 H=33.0 MCHC 31.7 G/DL L=31.0 H=36.0 RDW SD 50 FL L=36 H=50 RDW CV 14.7 % L=0.0 H=14.8 MPV 9.2 FL L=9.3 H=12.5 PLT 777-3 186 TH/CMM L=130 H=440 NRBC# 0.00 TH/CMM L=0.00 H=0.00 NRBC% 0.0 /100WBC L=0.0 H=2.0 %NEUT 91.5 % %LYMP 2.6 % %MONO 5.8 % %EOS 0.0 % %BASO 0.1 % #NEUT 14.23 TH/CMM L=2.10 H=8.20 #LYMP 0.40 TH/CMM L=0.90 H=5.20 #MONO 0.90 TH/CMM L=0.16 H=1.00 #EOS 0.00 TH/CMM L=0.00 H=0.80 #BASO 0.01 TH/CMM L=0.00 H=0.20 SEGS 90 % LYMPHS 5 % MONOS 5 % MANUAL DIFF SEE BELOW N/A CBC W/ AUTO DIFF (RFLX MAN DIFF IF IND) - Collect Date/Time: 04/28/2015 05:10 Test Name Code Test Result Test Units Test Ref Range WBC 74216-8 16.9 TH/CMM L=4.5 H=10.8 RBC 789-8 4.30 ML/CMM L=4.70 H=6.10 HGB 718-7 12.7 G/DL L=14.0 H=18.0 HCT 4544-3 39.4 % L=42.0 H=52.0 MCV 92 FL L=81 H=99 MCH 29.5 PG L=27.0 H=33.0 MCHC 32.2 G/DL L=31.0 H=36.0 RDW SD 49 FL L=36 H=50 RDW CV 14.5 % L=0.0 H=14.8 MPV 9.3 FL L=9.3 H=12.5 PLT 777-3 212 TH/CMM L=130 H=440 NRBC# 0.00 TH/CMM L=0.00 H=0.00 NRBC% 0.0 /100WBC L=0.0 H=2.0 %NEUT 95.2 % %LYMP 2.1 % %MONO 2.7 % %EOS 0.0 % %BASO 0.0 % #NEUT 16.09 TH/CMM L=2.10 H=8.20 #LYMP 0.35 TH/CMM L=0.90 H=5.20 #MONO 0.45 TH/CMM L=0.16 H=1.00 #EOS 0.00 TH/CMM L=0.00 H=0.80 #BASO 0.00 TH/CMM L=0.00 H=0.20 SEGS 89 % BANDS 5 % LYMPHS 3 % MONOS 3 % MANUAL DIFF SEE BELOW N/A CBC W/ AUTO DIFF (RFLX MAN DIFF IF IND) - Collect Date/Time: 04/27/2015 05:05 Test Name Code Test Result Test Units Test Ref Range WBC 95442-0 15.3 TH/CMM L=4.5 H=10.8 RBC 789-8 4.37 ML/CMM L=4.70 H=6.10 HGB 718-7 12.8 G/DL L=14.0 H=18.0 HCT 4544-3 39.8 % L=42.0 H=52.0 MCV 91 FL L=81 H=99 MCH 29.3 PG L=27.0 H=33.0 MCHC 32.2 G/DL L=31.0 H=36.0 RDW SD 48 FL L=36 H=50 RDW CV 14.5 % L=0.0 H=14.8 MPV 9.6 FL L=9.3 H=12.5 PLT 777-3 214 TH/CMM L=130 H=440 NRBC# 0.00 TH/CMM L=0.00 H=0.00 NRBC% 0.0 /100WBC L=0.0 H=2.0 %NEUT 95.8 % %LYMP 2.2 % %MONO 2.0 % %EOS 0.0 % %BASO 0.0 % #NEUT 14.69 TH/CMM L=2.10 H=8.20 #LYMP 0.34 TH/CMM L=0.90 H=5.20 #MONO 0.31 TH/CMM L=0.16 H=1.00 #EOS 0.00 TH/CMM L=0.00 H=0.80 #BASO 0.00 TH/CMM L=0.00 H=0.20 SEGS 86 % BANDS 8 % LYMPHS 5 % MONOS 1 % CENTRAL LINE SPEC DRAWN BY NURSING THROUGH CENTRAL N /A MANUAL DIFF SEE BELOW N/A CBC W/ AUTO DIFF (RFLX MAN DIFF IF IND) - Collect Date/Time: 04/26/2015 05:15 Test Name Code Test Result Test Units Test Ref Range WBC 10932-9 15.6 TH/CMM L=4.5 H=10.8 RBC 789-8 4.36 ML/CMM L=4.70 H=6.10 HGB 718-7 12.9 G/DL L=14.0 H=18.0 HCT 4544-3 39.3 % L=42.0 H=52.0 MCV 90 FL L=81 H=99 MCH 29.6 PG L=27.0 H=33.0 MCHC 32.8 G/DL L=31.0 H=36.0 RDW SD 47 FL L=36 H=50 RDW CV 14.2 % L=0.0 H=14.8 MPV 9.2 FL L=9.3 H=12.5 PLT 777-3 244 TH/CMM L=130 H=440 NRBC# 0.00 TH/CMM L=0.00 H=0.00 NRBC% 0.0 /100WBC L=0.0 H=2.0 %NEUT 92.6 % %LYMP 2.8 % %MONO 4.6 % %EOS 0.0 % %BASO 0.0 % #NEUT 14.41 TH/CMM L=2.10 H=8.20 #LYMP 0.44 TH/CMM L=0.90 H=5.20 #MONO 0.72 TH/CMM L=0.16 H=1.00 #EOS 0.00 TH/CMM L=0.00 H=0.80 #BASO 0.00 TH/CMM L=0.00 H=0.20 SEGS 84 % BANDS 6 % LYMPHS 3 % MONOS 7 % MANUAL DIFF SEE BELOW N/A CBC W/ AUTO DIFF (RFLX MAN DIFF IF IND) - Collect Date/Time: 04/25/2015 15:25 Test Name Code Test Result Test Units Test Ref Range WBC 77519-7 17.4 TH/CMM L=4.5 H=10.8 RBC 789-8 5.54 ML/CMM L=4.70 H=6.10 HGB 718-7 16.6 G/DL L=14.0 H=18.0 HCT 4544-3 51.4 % L=42.0 H=52.0 MCV 93 FL L=81 H=99 MCH 30.0 PG L=27.0 H=33.0 MCHC 32.3 G/DL L=31.0 H=36.0 RDW SD 47 FL L=36 H=50 RDW CV 13.9 % L=0.0 H=14.8 MPV 9.8 FL L=9.3 H=12.5 PLT 777-3 311 TH/CMM L=130 H=440 NRBC# 0.00 TH/CMM L=0.00 H=0.00 NRBC% 0.0 /100WBC L=0.0 H=2.0 %NEUT 89.0 % %LYMP 6.5 % %MONO 4.4 % %EOS 0.0 % %BASO 0.1 % #NEUT 15.45 TH/CMM L=2.10 H=8.20 #LYMP 1.13 TH/CMM L=0.90 H=5.20 #MONO 0.77 TH/CMM L=0.16 H=1.00 #EOS 0.00 TH/CMM L=0.00 H=0.80 #BASO 0.01 TH/CMM L=0.00 H=0.20 SEGS 92 % BANDS 2 % LYMPHS 5 % MONOS 1 % MANUAL DIFF SEE BELOW N/A D DIMER QUANT - Collect Date/Time: 04/25/2015 15:25 Test Name Code Test Result Test Units Test Ref Range D-DIMER QUANT 69974-1 0.58 MG/L FEU L=0.00 H= 0.50 PT/PTT - Collect Date/Time: 04/25/2015 15:25 Test Name Code Test Result Test Units Test Ref Range PROTIME 48647-3 12.7 SEC L=9.9 H=11.9 INR 1.3 PTT 3173-2 28.7 SEC L=22.2 H=37.2 C DIFF NAAT - Collect Date/Time: 04/30/2015 18:38 Test Name Code Test Result Test Units Test Ref Range C DIFFICILE NAAT 77926-5 TNP-FORMED STOOL N/A NL: NEGATIVE INFLUENZA A & B - Collect Date/Time: 04/25/2015 20:25 Test Name Code Test Result Test Units Test Ref Range INFLUENZA A & B 6437-8 NO INFLUENZA A OR B DETECTED N/A RSV - Collect Date/Time: 04/25/2015 20:25 Test Name Code Test Result Test Units Test Ref Range RSV 5876-8 NEGATIVE N/A NL: NEGATIVE OCCULT BLOOD iFOBT - Collect Date/Time: 04/30/2015 18:38 Test Name Code Test Result Test Units Test Ref Range OCC BLD STOOL 2335-8 NEGATIVE N/A NORMAL: NEGATIVE UA ROUTINE C&S IF IND - Collect Date/Time: 04/25/2015 16:35 Test Name Code Test Result Test Units Test Ref Range COLOR YELLOW N/A NL: YELLOW APPEARANCE HAZY N/A NL: CLEAR SPEC GRAV >=1.030 N/A NL: 1.002 - 1.022 pH 5.5 N/A NL: 5 - 9 PROTEIN 100 N/A NL: NEGATIVE mg/dl GLUCOSE NEGATIVE N/A NL: NEGATIVE mg/dl KETONE NEGATIVE N/A NL: NEGATIVE mg/dl BILIRUBIN NEGATIVE N/A NL: NEGATIVE BLOOD MODERATE N/A NL: NEGATIVE NITRITE NEGATIVE N/A NL: NEGATIVE LEUK SCREEN NEGATIVE N/A NL: NEGATIVE MICRO INDICATED? SEE BELOW N/A WBC/HPF 0-5 N/A NL: NEGATIVE RBC/HPF 5-10 N/A NL: NEGATIVE CASTS/LPF FEW FINE GRAN N/A NL: NEGATIVE CRYSTALS NEGATIVE N/A NL: NEGATIVE MUCOUS THRDS NEGATIVE N/A NL: NEGATIVE BACTERIA FEW N/A NL: NEGATIVE EPITH CELLS FEW RENAL N/A NL: NEGATIVE TRICHOMONAS NEGATIVE N/A NL: NEGATIVE YEAST NEGATIVE N/A NL: NEGATIVE CULT SET UP? NO N/A BNP - Collect Date/Time: 04/25/2015 15:25 Test Name Code Test Result Test Units Test Ref Range BNP 98176-9 298 PG/ML L=0 H=100 C REACTIVE PROTEIN - Collect Date/Time: 04/25/2015 15:25 Test Name Code Test Result Test Units Test Ref Range C REACTIVE PROTEIN 1988-5 1.1 MG/DL L=0.0 H= 1.0 TROPONIN-I ADV - Collect Date/Time: 04/26/2015 05:15 Test Name Code Test Result Test Units [place] [address]-6 0.14 ng/mL L=0.04 H=0.40 TROPONIN-I ADV - Collect Date/Time: 04/25/2015 17:50 Test Name Code Test Result Test Units [place] [address]-3 0.16 ng/mL L=0.04 H=0.40 TROPONIN-I ADV - Collect Date/Time: 04/25/2015 15:25 Test Name Code Test Result Test Units [place] [address]-8 0.13 ng/mL L=0.04 H=0.40 ABG - Collect Date/Time: 04/26/2015 12:00 Test Name Code Test Result Test Units Test Ref Range PH 7.38 L=7.35 H=7.45 PCO2 55 mmHG L=35 H=45 PO2 84 mmHG L=80 H=100 BE 5.4 mmol/L L=-2.5 H=2.5 HCO3 32 mmol/L L=22 H=28 TCO2 28 mmol/L L=18 H=31 O2SAT 96 % L=80 H=100 SITE UNK N/A FIO2 40% N/A ABG - Collect Date/Time: 04/26/2015 08:09 Test Name Code Test Result Test Units Test Ref Range PH 7.41 L=7.35 H=7.45 PCO2 50 mmHG L=35 H=45 PO2 70 mmHG L=80 H=100 BE 5.9 mmol/L L=-2.5 H=2.5 HCO3 31 mmol/L L=22 H=28 TCO2 28 mmol/L L=18 H=31 O2SAT 94 % L=80 H=100 SITE A LINE N/A FIO2 30% N/A ABG - Collect Date/Time: 04/26/2015 05:15 Test Name Code Test Result Test Units Test Ref Range PH 7.40 L=7.35 H=7.45 PCO2 50 mmHG L=35 H=45 PO2 126 mmHG L=80 H=100 BE 4.4 mmol/L L=-2.5 H=2.5 HCO3 30 mmol/L L=22 H=28 TCO2 25 mmol/L L=18 H=31 O2SAT 98 % L=80 H=100 SITE A LINE N/A FIO2 40% N/A ABG - Collect Date/Time: 04/26/2015 00:20 Test Name Code Test Result Test Units Test Ref Range PH 7.38 L=7.35 H=7.45 PCO2 52 mmHG L=35 H=45 PO2 87 mmHG L=80 H=100 BE 3.9 mmol/L L=-2.5 H=2.5 HCO3 30 mmol/L L=22 H=28 TCO2 27 mmol/L L=18 H=31 O2SAT 96 % L=80 H=100 SITE A LINE N/A FIO2 40% N/A ABG - Collect Date/Time: 04/25/2015 22:15 Test Name Code Test Result Test Units Test Ref Range PH 7.36 L=7.35 H=7.45 PCO2 53 mmHG L=35 H=45 PO2 120 mmHG L=80 H=100 BE 2.8 mmol/L L=-2.5 H=2.5 HCO3 29 mmol/L L=22 H=28 TCO2 26 mmol/L L=18 H=31 O2SAT 98 % L=80 H=100 SITE A LINE N/A FIO2 50% N/A ABG - Collect Date/Time: 04/25/2015 20:30 Test Name Code Test Result Test Units Test Ref Range PH 7.33 L=7.35 H=7.45 PCO2 61 mmHG L=35 H=45 PO2 281 mmHG L=80 H=100 BE 4.1 mmol/L L=-2.5 H=2.5 HCO3 31 mmol/L L=22 H=28 TCO2 28 mmol/L L=18 H=31 O2SAT 99 % L=80 H=100 SITE A LINE N/A FIO2 75% N/A ABG - Collect Date/Time: 04/25/2015 17:10 Test Name Code Test Result Test Units Test Ref Range PH 7.22 L=7.35 H=7.45 PCO2 86 mmHG L=35 H=45 PO2 298 mmHG L=80 H=100 BE 2.8 mmol/L L=-2.5 H=2.5 HCO3 34 mmol/L L=22 H=28 TCO2 31 mmol/L L=18 H=31 O2SAT 99 % L=80 H=100 SITE R RAD N/A FIO2 BIPAP 100% N/A ABG - Collect Date/Time: 04/25/2015 15:48 Test Name Code Test Result Test Units Test Ref Range PH 7.16 L=7.35 H=7.45 PCO2 98 mmHG L=35 H=45 PO2 124 mmHG L=80 H=100 BE 0.7 mmol/L L=-2.5 H=2.5 HCO3 34 mmol/L L=22 H=28 TCO2 31 mmol/L L=18 H=31 O2SAT 97 % L=80 H=100 SITE R RADIAL N/A FIO2 15L NRB N/A AMYLASE - Collect Date/Time: 04/25/2015 15:25 Test Name Code Test Result Test Units Test Ref Range AMYLASE 1798-8 104 IU/L L=25 H=125 LACTIC ACID - Collect Date/Time: 04/26/2015 05:15 Test Name Code Test Result Test Units Test Ref Range LACTIC ACID 2524-7 1.4 mmol/L L=0.5 H=1.6 LACTIC ACID - Collect Date/Time: 04/25/2015 17:50 Test Name Code Test Result Test Units Test Ref Range LACTIC ACID 2524-7 2.2 mmol/L L=0.5 H=1.6 LACTIC ACID - Collect Date/Time: 04/25/2015 15:48 Test Name Code Test Result Test Units Test Ref Range LACTIC ACID 2524-7 1.9 mmol/L L=0.5 H=1.6 MAGNESIUM - Collect Date/Time: 04/27/2015 05:05 Test Name Code Test Result Test Units Test Ref Range MAGNESIUM 11775-0 2.1 MG/DL L=1.7 H=2.8 MAGNESIUM - Collect Date/Time: 04/25/2015 15:25 Test Name Code Test Result Test Units Test Ref Range MAGNESIUM 95919-8 2.8 MG/DL L=1.7 H=2.8 PHOSPHORUS - Collect Date/Time: 04/27/2015 05:05 Test Name Code Test Result Test Units Test Ref Range PHOSPHORUS 2777-1 2.5 MG/DL L=2.5 H=4.5 PREALBUMIN - Collect Date/Time: 04/26/2015 05:15 Test Name Code Test Result Test Units Test Ref Range PREALBUMIN 70516-5 12 MG/DL L=17 H=34 Active Medications Medications Administered During Visit Medication Dose Units Frequency Route Date/ Time of Last Dose DUONEB [IPRATROPIUM/ALBUTEROL] 0.5/3 MG 1 UD Q4HR (RT) INHALE 05/01/2015 09:40 BUDESONIDE [PULMICORT] RESP 0.5MG/2ML 1 DOSE Q 12 HRS (RT ONLY) INHALE 05/01/2015 09:40 ZITHROMAX 500MG ADV IV [PREDEFINED] Q24H 04/27/2015 22:49 METHYLPREDNISOLONE INJ [SOLU] 40MG VL 40 MG Q8H IVP 04/26/2015 14:25 NYSTATIN SUSP: 500 M UN/5ML UD CUPS 5 ML TID PO 05/01/2015 09:04 LEVOFLOXACIN [LEVAQUIN] IV BAMG Q24H 04/28/2015 17:27 MYCAMINE IV [PREDEFINED] : 100MG/100MLNS Q24H 04/27/2015 20:53 NS 1000 ML IV [PREDEFINED] (7983) CONT IV 04/26/2015 16:12 NS 1000 ML IV [PREDEFINED] (7983) CONT IV 04/25/2015 21:38 PANTOPRAZOLE [PROTONIX] INJ VIAL: 40 MG 40 MG DAILY SIVP 04/28/2015 09:21 PROPOFOL [DIPRIVAN] INJ 10MG/ML 20MLVIAL 20 MG X1 IVP 04/25/2015 19:35 MORPHINE INJ: 2MG/ML 1 ML SYRINGE 2 MG PRN IVP 04/27/2015 03:41 PROPOFOL [DIPRIVAN] 10MG/ML 100ML VIAL CONT 04/26/2015 04:04 METHYLPREDNISOLONE INJ [SOLU] 40MG VL 80 MG X1 IVP 04/26/2015 10:14 VANCOMYCIN [PREDEFINED] ADV IV : 1000MG X1 04/26/2015 14:02 VANCOMYCIN [PREDEFINED] ADV IV : 1000MG Q8H 04/29/2015 05:21 NS 1000 ML IV [PREDEFINED] (7983) CONT IV 04/27/2015 11:49 METHYLPREDNISOLONE INJ [SOLU] 125MG VL 125 MG Q8H IVP 04/27/2015 12:57 DILTIAZEM [CARDIZEM] TABLET : 60 MG 30 MG Q6H PO 04/29/2015 04:04 HEPARIN PRESSURE BAG (ICU USE ONLY) 1 EA PRN 04/27/2015 01:57 FUROSEMIDE (LASIX): 40 MG/4 ML VIAL 40 MG X1 IVP 04/27/2015 16:00 METHYLPREDNISOLONE INJ [SOLU] 40MG VL 80 MG Q8H IVP 04/28/2015 05:02 GABAPENTIN (NEURONTIN) CAP:300 MG 300 MG HS PO 04/30/2015 21:02 ADVAIR DISKUS 500/50 INHALER (MDI) 1 EA BID INHALE 05/01/2015 09:40 MONTELUKAST [SINGULAIR] TABLET: 10 MG 10 MG BEDTIME PO 04/30/2015 21:02 BISACODYL [DULCOLAX] TAB : 5 MG 5 MG X1 PO 04/27/2015 16:00 POLYETHYLENE [MIRALAX] POWDER: 17 GM 17 GM BEDTIME PO 04/30/2015 21:56 PredniSONE 20 MG TABLET 50 MG DAILY PO 05/01 09:04 PANTOPRAZOLE [PROTONIX] TABLET : 40 MG 40 MG DAILY PO 05/01/2015 09:04 DILTIAZEM [CARDIZEM] TABLET : 60 MG 90 MG BID PO 05/01/2015 09:04 LEVOFLOXACIN [LEVAQUIN] TABLET: 750MG 750 MG DAILY PO 04/30/2015 15:51 Encounters Encounter Diagnosis Diagnosis Code Start Date Sepsis, unspecified organism [id number] 04/25/2015 Social History Smoking Status Code Start Date End Date Current every day smoker 641975420 Patient Decision Aids Unknown or Not Available. Discharge Instructions You were admitted to [facility] on 04/25/2015 with a principal diagnosis of Sepsis, unspecified organism. You were discharged from [facility] on 05/01/2015. Should you have any questions prior to discharge, please contact a member of your healthcare team. If you have left the hospital and have any questions, please contact your primary care physician. CONDITION AT DISMISSAL Stable. ACTIVITY INSTRUCTIONS(list limitations): Activity as Tolerated. FOLLOW UP CARE - SEE YOUR PHYSICIAN: FridayMay 09 at 1:30 pm with PERSONAL ITEMS RETURNED: Yes. INSTRUCTIONS GIVEN AND DISCHARGE TO: Patient, Discharged to:_home___ With:__ wife_. VOICES UNDERSTANDING OF INSTRUCTIONS: Yes. INSTRUCTIONS GIVEN BY (TYPE IN NAME AND DATE) nba lindsay HOME DIET: Regular. CONTACT PHYSICIAN IF YOU EXPERIENCE ANY: fever of 102 or greater, chest pain, shortness of breath SMOKING CESSATION: Smoking and second hand smoke is harmful, to your health.. Smoking has been linked to cancer, cardiac disease, COPD, and asthma.. For more information you can call:, 5-222-CJQ-STOP, or 4-696-[facility]ZTGthereNow[facility].. A pamphlet on smoking was given to you, at admission.. SCRIPTS WRITTEN BY DOCTOR GIVEN TO PATIENT? Yes, for what? ,gabapentin, advair, singulair, protonix, diltiazem FOLLOW-UP OUTPATIENT SERVICES: chest xray in 6 weeks CHIEF COMPLAINT: Pt was found unresponsive lying on floor by daughter, was previously short of breath at rest. EMS found pt to be cyanotic w/ agonal respirations sats 70' s. Chief Complaint and Reason For Visit Chief Complaint Date of Onset SEPSIS PNEUMONIA RESP DISTRESS Function Status Unknown or Not Available. Plan of Care Unknown or Not Available. Referral/Transition of Care Unknown or Not Available.
[2018-01-15] MEDS ORDERED: NS IV 500 ML 500 ML ONE (08:12)
--- OUTSIDE RECORDS SUMMARY | 2018-01-15 08:12 | XMS REPORT ---
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 Name Role Phone Margarita Wells PCP Margarita Wells PreferredProvider Allergies and Adverse Reactions Name Reaction Notes PENICILLINS Syncope SULFA (SULFONAMIDES) rash Plan of Treatment Planned Activity Comments Planned Date Planned Time Plan/Goal dysphagia and routine colon cancer screening 04/11/2015 10:15 AM PFT 12/03/2016 12:00 AM CMP 06/10/2017 12:00 AM CBC for General Health Panel 06/10/2017 12:00 AM LIPID PANEL 06/10/2017 12:00 AM Medications Active Name Start Date Estimated Completion Date SIG Comments Centrum Silver 400-250 mcg oral tablet,chewable chew 1 tablet by oral route daily Flonase Allergy Relief 50 mcg/actuation nasal spray,suspension inhale 1 spray (50 mcg) in each nostril by intranasal route once daily aspirin 81 mg oral tablet,chewable 11/13/2016 CHEW 1 TABLET (81 MG) BY ORAL ROUTE ONCE DAILY FOR 30 DAYS Trelegy Ellipta 100-62.5-25 mcg inhalation blister with device 07/17/2017 inhale 1 puff by inhalation route once daily at the same time each day for 30 days Ventolin HFA 90 mcg/actuation inhalation HFA aerosol inhaler inhale 1 - 2 puffs (90 - 180 mcg) by inhalation route every 4-6 hours as needed mirtazapine 15 mg oral tablet 10/29/2017 TAKE 1 TABLET BY MOUTH EVERY NIGHT AT BEDTIME pravastatin 40 mg oral tablet 10/30/2017 TAKE 1 TABLET (40 MG) BY ORAL ROUTE ONCE DAILY FOR 30 DAYS FOR 30 DAYS metoprolol succinate 25 mg oral tablet extended release 24 hr 12/01/20172018 TAKE 1 TABLET BY ORAL ROUTE DAILY FOR 30 DAYS FOR 30 DAYS for 90 days Singulair 10 mg oral tablet 12/01/2017 11/26/2018 TAKE 1 TABLET (10 MG) BY ORAL ROUTE ONCE DAILY IN THE EVENING FOR 30 DAYS Name Start Date Expiration Date SIG Comments hydrocodone-acetaminophen 5-325 mg oral tablet 03/29/2015 04/12/2015 take 1 tablet by oral route every 8 hours for 14 days azithromycin 250 mg oral tablet 03/29/2015 04/03/2015 take 2 tablets (500 mg ) by oral route once daily for 1 day then 1 tablet (250 mg) by oral route once daily for 4 days prednisone 10 mg oral tablet 03/29/2015 04/05/2015 take 1 tablet (10 mg) by oral route once daily in the morning for 7 days Vitamin D3 1,000 unit oral capsule 04/19/2015 05/19/2015 take 1 capsule by oral route daily for 30 days prednisone 20 mg oral tablet 04/19/2015 04/24/2015 take 1 tablet (20 mg) by oral route 2 times per day for 5 days furosemide 20 mg oral tablet 04/19/2015 04/22/2015 take 1 tablet (20 mg) by oral route once daily for 3 days Combivent Respimat 20-100 mcg/actuation inhalation mist 05/10/2015 09/07/2015 inhale 1 puff by inhalation route 4 times per day ; may take additional puffs as needed not to exceed 6 puffs in 24hrs for 30 days Mucinex 1,200 mg oral tablet extended release 12hr 07/11/2015 09/05/2015 1 tab nightly Chantix Starting Month Box 0.5 mg (11)- 1 mg (42) oral tablets,dose pack 201509/09/2015 take as directed for 30 days Remeron 30 mg oral tablet 10/12/2015 01/10/2016 take 1 tablet (30 mg) by oral route once daily before bedtime for 30 days hydrocodone-acetaminophen 5-325 mg oral tablet 05/23/2016 06/22/2016 take 1 tablet by oral route every 12 hours for 30 days omeprazole 20 mg oral capsule,delayed release(DR/EC) 06/19/2016 01/15/2017 take 1 capsule by oral route daily for 30 days Symbicort 160-4.5 mcg/actuation inhalation HFA aerosol inhaler 06/19/201601/15 inhale 2 puffs by inhalation route 2 times per day in the morning and evening for 30 days Ventolin HFA 90 mcg/actuation inhalation HFA aerosol inhaler 07/05/20162016 inhale 1 puff (90 mcg) by inhalation route every 4-6 hours as needed for 30 days metoprolol succinate 25 mg oral tablet extended release 24 hr 09/11/20162017 TAKE 1 TABLET BY ORAL ROUTE DAILY FOR 30 DAYS for 30 days Remeron 30 mg oral tablet 09/11/2016 10/11/2016 TAKE 1 TABLET (30 MG) BY ORAL ROUTE ONCE DAILY BEFORE BEDTIME FOR 30 DAYS for 30 days Remeron 15 mg oral tablet 10/08/2016 03/07/2017 take 1 tablet (15 mg) by oral route once daily before bedtime for 30 days aspirin 81 mg oral tablet,chewable 11/12/2016 02/10/2017 chew 1 tablet (81 mg ) by oral route once daily for 30 days pravastatin 40 mg oral tablet 05/06/2017 08/04/2017 TAKE 1 TABLET(40 MG) BY MOUTH EVERY EVENING omeprazole 20 mg oral capsule,delayed release(DR/EC) 05/12/2017 11/08/2017 TAKE 1 CAPSULE BY MOUTH TWICE DAILY albuterol sulfate 2.5 mg /3 mL (0.083 %) inhalation solution for nebulization 10/09/2017 12/08/2017 INHALE 3 MILLILITERS (2.5 MG) BY NEBULIZATION ROUTE 4 TIMES PER DAY for 30 days. Dx: J44.9 Discontinued Name Start Date Discontinued Date SIG Comments baclofen 20 mg oral tablet 04/19/2015 take 1 tablet (20 mg) by oral route 4 times per day for 30 days Anti-Diarrheal (kvng)-Anti-Gas 2-125 mg oral tablet 04/11/2015 take 1 tablet by oral route 2 times a day resolved Combivent Respimat 20-100 mcg/actuation inhalation mist 04/19/2015 inhale 1 puff by inhalation route 4 times per day ; may take additional puffs as needed not to exceed 6 puffs in 24hrs cimetidine 800 mg oral tablet 04/11/2015 take 1 tablet (800 mg) by oral route 2 times per day change freq naproxen 500 mg oral tablet 03/28/2015 omeprazole 20 mg oral tablet,delayed release (DR/EC) 04/11/2015 take 1 tablet by oral route daily change frequency Symbicort 160-4.5 mcg/actuation inhalation HFA aerosol inhaler 09/12/2015 inhale 2 puffs by inhalation route 2 times per day in the morning and evening simvastatin 80 mg oral tablet 04/19/2015 take 1 tablet by oral route daily furosemide 20 mg oral tablet 03/28/2015 take 1 tablet (20 mg) by oral route once daily Replaced/Retired Drug 40-10-3.3 mg oral tablet 10/12/2015 take 1 tablet by oral route daily cimetidine 800 mg oral tablet 04/19/2015 take 1 tablet (800 mg) by oral route once daily at bedtime ProAir HFA 90 mcg/actuation inhalation HFA aerosol inhaler 04/19/20152015 inhale 1 puff (90 mcg) by inhalation route every 6 hours as needed for 30 days Cardizem 30 mg oral tablet 05/10/2015 06/07/2015 take 1 tablet (30 mg) by oral route 2 times per day for 30 days Advair Diskus 500-50 mcg/dose inhalation blister with device 06/27/20152015 inhale 1 puff by inhalation route 2 times per day in the morning and evening approximately 12 hours apart for [address] Bryant. Breo Ellipta 200-25 mcg/dose inhalation blister with device 09/12/20152015 take 1 puff by inhalation route daily for 30 days Symbicort 160-4.5 mcg/actuation inhalation HFA aerosol inhaler 09/12/20152015 inhale 2 puffs by inhalation route 2 times per day in the morning and evening for 30 days Breo Ellipta 100-25 mcg/dose inhalation blister with device 10/12/20152015 inhale 1 puff by inhalation route once daily at the same time each day for 30 days Spiriva Respimat 2.5 mcg/actuation inhalation mist 09/11/2016 inhale 2 puffs (5 mcg) by inhalation route once daily at the same time each day Zyrtec 10 mg oral tablet 06/19/2016 take 1 tablet (10 mg) by oral route once daily doxycycline monohydrate 100 mg oral tablet 03/21/2016 05/22/2016 take 1 tablet by oral route 2 times a day prednisone 20 mg oral tablet 03/21/2016 05/22/2016 take 3 tablets daily x2, then 2 tablets daily x2, then 1 tablet daily x4 ProAir HFA 90 mcg/actuation inhalation HFA aerosol inhaler 06/19/20162016 inhale 1 puff (90 mcg) by inhalation route every 4 hours as needed for 30 days Symbicort 160-4.5 mcg/actuation inhalation HFA aerosol inhaler 08/29/201609/11 INHALE 2 PUFFS BY MOUTH TWICE DAILY IN THE MORNING AND IN THE EVENING Anoro Ellipta 62.5-25 mcg/actuation inhalation blister with device 03/04/2017 06/19/2017 inhale 1 puff by inhalation route once daily at the same time each day for 30 days Arnuity Ellipta 200 mcg/actuation inhalation blister with device 03/05/2017 INHALE 1 PUFF (200 MCG) BY INHALATION ROUTE ONCE DAILY AT THE SAME TIME EACH DAY FOR 30 DAYS prednisone 20 mg oral tablet 06/19/2017 07/17/2017 take 2 tablets (40 mg) by oral route once daily for 5 days Problem List Description Status Onset Chronic back pain Active Chronic Obstructive Pulmonary Disease Active GERD (gastroesophageal reflux disease) Active Hyperlipemia Active Nocturia Active 05/08/2015 Bladder outlet obstruction Active 05/08/2015 Benign enlargement of prostate Active 05/08/2015 Vital Signs Date Time BP-Sys(mm[Hg] BP-Lucy(mm[Hg]) HR(bpm) RR(rpm) Temp WT HT HC BMI BSA BMI Percentile O2 Sat(%) 12/17/2017 10:08:00 AM 136 mmHg 76 mmHg 87 bpm 18 rpm 98.1 F 157 lbs 70 in 22.5269 kg/m 1.8754 m 91 % 10/16/2017 9:23:00 AM 156 mmHg 80 mmHg 97 bpm 16 rpm 98.6 F 144 lbs 70 in 20.66 kg/m2 1.80 m2 93 % 09/24/2017 10:40:00 AM 184 mmHg 84 mmHg 110 bpm 22 rpm 98.2 F 142.125 lbs 70 in 20.3926 kg/m 1.7844 m 91 % 09/17/2017 9:46:00 AM 198 mmHg 96 mmHg 89 bpm 19 rpm 98.1 F 143.125 lbs 70 in 20.54 kg/m2 1.79 m2 91 % 07/17/2017 9:43:00 AM 172 mmHg 82 mmHg 111 bpm 18 rpm 96.2 F 143.125 lbs 70 in 20.5361 kg/m 1.7906 m 92 % 06/19/2017 9:44:00 AM 140 mmHg 84 mmHg 102 bpm 24 rpm 97.6 F 142 lbs 70 in 20.37 kg/m2 1.78 m2 90 % 02/13/2017 10:21:00 AM 138 mmHg 80 mmHg 105 bpm 20 rpm 98.2 F 139 lbs 70 in 19.9442 kg/m 1.7646 m 94 % 10/08/2016 1:52:00 PM 120 mmHg 68 mmHg 96 bpm 20 rpm 98.9 F 137.5 lbs 70 in 19.73 kg/m2 1.76 m2 91 % 09/11/2016 1:26:00 PM 124 mmHg 72 mmHg 101 bpm 20 rpm 99.1 F 137.375 lbs 70 in 19.71 kg/m2 1.75 m2 93 % 06/19/2016 1:36:00 PM 142 mmHg 82 mmHg 81 bpm 20 rpm 97.2 F 139.8 lbs 70 in 20.059 kg/m 1.7697 m 96 % 05/22/2016 2:12:00 PM 170 mmHg 70 mmHg 106 bpm 20 rpm 97.7 F 139 lbs 70 in 19.94 kg/m2 1.76 m2 91 % 03/21/2016 10:23:00 AM 132 mmHg 66 mmHg 104 bpm 18 rpm 97.9 F 134.375 lbs 70 in 19.2806 kg/m 1.735 m 96 % 01/17/2016 10:27:00 AM 132 mmHg 72 mmHg 95 bpm 20 rpm 97.8 F 133.5 lbs 70 in 19.16 kg/m2 1.73 m2 94 % 10/12/2015 9:52:00 AM 110 mmHg 74 mmHg 104 bpm 20 rpm 97.7 F 136 lbs 70 in 19.5138 kg/m 1.7455 m 92 % 09/12/2015 9:44:00 AM 144 mmHg 68 mmHg 106 bpm 22 rpm 96.9 F 140 lbs 70 in 20.09 kg/m2 1.77 m2 97 % 08/10/2015 9:22:00 AM 160 mmHg 80 mmHg 122 bpm 20 rpm 97.4 F 145.25 lbs 70 in 20.841 kg/m 1.8039 m 92 % 07/11/2015 9:59:00 AM 126 mmHg 78 mmHg 110 bpm 22 rpm 97.6 F 136.5 lbs 70 in 19.59 kg/m2 1.75 m2 96 % 06/07/2015 9:49:00 AM 128 mmHg 74 mmHg 117 bpm 16 rpm 98 F 134 lbs 70 in 19.2268 kg/m 1.7326 m 96 % 05/10/2015 1:26:00 PM 110 mmHg 60 mmHg 92 bpm 22 rpm 98 F 135 lbs 70 in 19.37 kg/m2 1.74 m2 89 % 05/08/2015 11:04:00 AM 138 lbs 70 in 19.8007 kg/m 1.7583 m 04/19/2015 10:47:00 AM 140 mmHg 88 mmHg 103 bpm 22 rpm 98.2 F 138 lbs 70 in 19.80 kg/m2 1.76 m2 95 % 04/11/2015 1:18:00 PM 132 mmHg 64 mmHg 108 bpm 20 rpm 98.1 F 138 lbs 70 in 19.8007 kg/m 1.7583 m 97 % 04/06/2015 11:53:00 AM 141 lbs 70 in 20.23 kg/m2 1.78 m2 04/05/2015 3:18:00 PM 130 mmHg 72 mmHg 106 bpm 22 rpm 98.2 F 141 lbs 70 in 20.2312 kg/m 1.7773 m 91 % 03/28/2015 2:56:00 PM 130 mmHg 82 mmHg 109 bpm 22 rpm 97.6 F 150 lbs 70 in 21.52 kg/m2 1.83 m2 93 % Social History Name Description Comments Tobacco Current every day smoker smoked 50 years@ 1.5 pack QD (75 pack years) , quit couple weeks ago from 04/11/15 Alcohol Never History of Procedures Date Ordered Description Order Status 03/28/2015 12:00 AM FECES CULTURE AEROBIC BACT Reviewed 03/28/2015 12:00 AM GIARDIA AG EIA Reviewed 03/28/2015 12:00 AM CLOSTRIDIUM AG EIA Reviewed 03/28/2015 12:00 AM COMPREHEN METABOLIC PANEL Returned 03/28/2015 12:00 AM ASSAY THYROID STIM HORMONE Reviewed 03/28/2015 12:00 AM ASSAY OF LIPASE Reviewed 03/28/2015 12:00 AM ASSAY OF AMYLASE Reviewed 03/28/2015 12:00 AM US EXAM ABDOM COMPLETE Reviewed 03/28/2015 12:00 AM Consult/Referral Reviewed 04/05/2015 12:00 AM Consult/Referral Reviewed 03/28/2015 12:[address] ABD & PELV W/CONTRAST Reviewed 04/07/2015 12:00 AM MRI LUMBAR SPINE W/O DYE Reviewed 04/19/2015 12:00 AM IM ADM PRQ ID SUBQ/IM NJXS 1 VACCINE Reviewed 04/19/2015 12:00 AM IM ADM PRQ ID SUBQ/IM NJXS EA VACCINE Reviewed 04/19/2015 12:00 AM PNEUMOCOCCAL VACC 13 LILIANE IM Reviewed 04/19/2015 12:00 AM INFLUENZA VACCINE QUADRIVALENT 3 YRS PLUS IM Reviewed 04/19/2015 12:00 AM Pulmonology Consult Reviewed 04/19/2015 12:00 AM TTE W/DOPPLER COMPLETE Reviewed 05/08/2015 12:11 PM URINALYSIS AUTO W/O SCOPE Reviewed 09/12/2015 12:00 AM COMPREHEN METABOLIC PANEL Reviewed 01/17/2016 12:00 AM FLU VACC 4 LILIANE 3 YRS PLUS IM Reviewed 05/22/2016 12:00 AM RADEX RIBS UNI W/POSTEROANT CH MINIMUM 3 VIEWS Reviewed 06/19/2016 12:00 AM LIPID PANEL Returned 06/19/2016 12:00 AM COMPLETE CBC W/AUTO DIFF WBC Returned 06/19/2016 12:00 AM ASSAY OF PSA TOTAL Reviewed 06/19/2016 12:00 AM OCCULT BLOOD FECES Reviewed 02/13/2017 12:00 AM [facility] - flu vaccine administration Reviewed 02/13/2017 12:00 AM INFLUENZA VACCINE SPLT PRSRV FREE INC ANTIGEN IM Reviewed 06/10/2017 12:[address] THORAX W/DYE Returned 09/17/2017 12:00 AM TTE W/DOPPLER COMPLETE Returned 09/17/2017 12:00 AM BLOOD GASES ANY COMBINATION Returned 09/17/2017 12:00 AM CHEST X-RAY 2VW FRONTAL&LATL Returned 09/17/2017 12:00 AM ASSAY OF NATRIURETIC PEPTIDE Returned 09/17/2017 12:00 AM COMPLETE CBC W/AUTO DIFF WBC Returned 09/17/2017 12:00 AM ASSAY OF LACTIC ACID Returned Results Summary Date and Description Results 03/28/2015 3:58 PM AMYLASE 78 IU/LLIPASE 12.0 U/LTSH 0.750 uIU/mL 03/29/2015 1:19 PM C DIFFICILE NAAT TNP-FORMED STOOL SOURCE: STOOL 05/08/2015 12:11 PM Clarity Ur -VE Color Ur -VE Glucose Ur-sCnc -VE Bilirub Ur Ql Strip -VE Ketones Ur Ql Strip -VE Sp Gr Ur Qn 1015 Hgb Ur Ql Strip -VE pH Ur- LsCnc 6.0 Prot Ur Ql Strip -VE Urobilinogen Ur-mCnc -VE Nitrite Ur Ql Strip -VE WBC Est Ur Ql Strip -VE 10/04/2015 10:37 AM GLUCOSE 113.0 mg/dLSODIUM 141.0 mmol/LPOTASSIUM 4.40 mmol/ LCHLORIDE 100.0 mmol/LCO2 35.0 mmol/LBUN 17.0 mg/dLCREATININE 1.0 mg/dLSGOT/AST 18.0 IU/LSGPT/ALT 15.0 IU/LALK PHOS 115.0 IU/LTOTAL PROTEIN 7.60 g/dLALBUMIN 4.80 g/dLTOTAL BILI 0.30 mg/dLCALCIUM 10.30 mg/dLAGE 65 GFR NonAA 75 GFR AA 91 eGFR >60 mL/min/1.73meGFR AA* >60 06/19/2016 2:40 PM PSA TOTAL 1.010 ng/mL 06/21/2016 3:00 PM OCC BLD STOOL POSITIVE History Of Immunizations Name Date Admin Mfg Name Mfg Code Trade Name Lot# Route Inj Vis Given Vis Pub CVX Pneumococcal 04/19/2015 Akugp-Rprfub-Dzfwnaa-Praxis WAL PREVNAR 13 [id number] Intramuscular Left Deltoid 04/19/2015 07/01/2012 133 X 04/19/2015 Mqhkd-Isbzrc-Ahjeoht-Praxis WAL PREVNAR 13 [id number] Intramuscular Left Deltoid 04/19/2015 07/01/2012 133 Influenza 04/19/2015 sanofi pasteur PMC Fluarix, quadrivalent, preservative free [id number] Intramuscular Right Deltoid 04/19/2015 12/21/2014 141 Influenza 01/17/2016 sanofi pasteur PMC FLUZONE-HIGH DOSE [id number] Intramuscular Left Deltoid 01/17/2016 12/09/2014 141 Influenza 02/13/2017 sanofi pasteur PMC FLUZONE [id number] Intramuscular Left Deltoid 02/13/2017 12/09/2014 135 History of Past Illness Name Date of Onset Comments GERD (gastroesophageal reflux disease) Hyperlipemia Chronic back pain Chronic Obstructive Pulmonary Disease Nocturia 05/08/2015 Bladder outlet obstruction 05/08/2015 Benign enlargement of prostate 05/08/2015 Lung nodule, multiple Right upper quadrant pain Mar 28 2015 3:23PM Diarrhea Mar 28 2015 3:23PM Lower back pain Mar 28 2015 3:23PM Colon cancer screening Mar 28 2015 3:23PM Dysphagia, unspecified dysphagia Mar 28 2015 3:23PM Weight loss Mar 28 2015 3:23PM COPD exacerbation Mar 28 2015 3:23PM Tobacco abuse Mar 28 2015 3:23PM Pancreatic duct dilated Apr 05 2015 1:17PM Right upper quadrant pain Apr 05 2015 3:23PM Chronic Diarrhea Apr 05 2015 3:23PM Chronic bronchitis, unspecified chronic bronchitis type Apr 05 2015 3:23PM Chronic lower back pain Apr 05 2015 3:23PM Colon cancer screening Apr 06 2015 10:01AM Dysphagia, unspecified dysphagia Apr 06 2015 10:01AM Weight loss Apr 06 2015 10:01AM Progressive neurological deficit Apr 07 2015 12:30PM Incontinence Apr 11 2015 1:20PM Spinal stenosis, lumbar region Apr 11 2015 1:20PM Chronic bronchitis, unspecified chronic bronchitis type Apr 11 2015 1:20PM COPD exacerbation Apr 19 2015 10:48AM Orthopnea Apr 19 2015 10:48AM Chronic lower back pain Apr 19 2015 10:48AM Chronic bronchitis, unspecified chronic bronchitis type Apr 19 2015 10:48AM Flu Vaccine Apr 19 2015 2:38PM Pneumonia vaccine Apr 19 2015 2:38PM Benign enlargement of prostate May 08 2015 11:05AM Bladder outlet obstruction May 08 2015 11:05AM Nocturia May 08 2015 11:05AM Appetite loss May 10 2015 1:33PM Frailty May 10 2015 1:33PM Chronic bronchitis, unspecified chronic bronchitis type May 10 2015 1:33PM Chronic bronchitis, unspecified chronic bronchitis type Feb 2015 9:57AM Frailty Jun 07 2015 9:57AM Tachycardia Jun 07 2015 9:57AM Spinal stenosis of lumbar region Jul 11 2015 10:02AM Tachycardia Jul 11 2015 10:02AM Chronic bronchitis, unspecified chronic bronchitis type Jul 11 2015 10:02AM Frailty Jul 11 2015 10:02AM Tobacco abuse Aug 10 2015 9:29AM Chronic bronchitis, unspecified chronic bronchitis type Aug 10 2015 9:29AM Frailty Aug 10 2015 9:29AM Cramping of feet Sep 12 2015 9:49AM Frail elderly Sep 12 2015 9:49AM Chronic bronchitis, unspecified chronic bronchitis type Sep 12 2015 9:49AM Tachycardia Sep 12 2015 9:49AM Tobacco abuse Sep 12 2015 9:49AM Frail elderly Oct 12 2015 9:56AM End stage COPD Oct 12 2015 9:56AM Chronic back pain Oct 12 2015 9:56AM Influenza vaccine administered Jan 17 2016 10:33AM COPD (chronic obstructive pulmonary disease) Jan 17 2016 10:33AM Lumbar canal stenosis Jan 17 2016 10:33AM Frail elderly Jan 17 2016 10:33AM Tachycardia Jan 17 2016 10:33AM Chronic obstructive pulmonary disease with acute exacerbation Mar 21 2016 10: 25AM Rib pain on left side May 22 2016 2:16PM COPD (chronic obstructive pulmonary disease) May 22 2016 2:16PM Hyperlipemia Jun 19 2016 1:38PM COPD (chronic obstructive pulmonary disease) Jun 19 2016 1:38PM Dorsalgia, unspecified Jun 19 2016 1:38PM Other chronic pain Jun 19 2016 1:38PM Frail elderly Jun 19 2016 1:38PM Colon cancer screening Jun 19 2016 1:38PM Sleep apnea Jun 19 2016 1:38PM Tobacco abuse Jun 19 2016 1:38PM Prostate cancer screening Jun 19 2016 1:38PM Frailty Sep 11 2016 1:31PM COPD (chronic obstructive pulmonary disease) Sep 11 2016 1:31PM Positive fecal occult blood test Sep 11 2016 1:31PM Tachycardia Sep 11 2016 1:31PM Frail elderly Oct 08 2016 1:55PM COPD (chronic obstructive pulmonary disease) Oct 08 2016 1:55PM COPD (chronic obstructive pulmonary disease) Dec 03 2016 4:16PM Degenerative disc disease, cervical Feb 13 2017 10:24AM Chronic bronchitis, unspecified chronic bronchitis type Feb 13 2017 10:24AM Oxygen dependent Feb 13 2017 10:24AM Frail elderly Feb 13 2017 10:24AM Flu Vaccine Feb 13 2017 11:35AM History of tobacco abuse Jun 10 2017 11:45AM COPD (chronic obstructive pulmonary disease) Jun 10 2017 11:45AM Hyperlipemia Jun 10 2017 11:45AM Routine health maintenance Jun 10 2017 11:45AM COPD (chronic obstructive pulmonary disease) Jun 19 2017 9:46AM COPD exacerbation Jun 19 2017 9:46AM Positive fecal occult blood test Jun 19 2017 9:46AM Pulmonary nodules Fe 23 2018 4:01PM COPD (chronic obstructive pulmonary disease) Jul 17 2017 9:46AM Lung nodule Jul 17 2017 9:46AM COPD exacerbation Sep 17 2017 9:51AM Shortness of breath Sep 17 2017 10:32AM Dyspnea Sep 17 2017 9:51AM COPD exacerbation Sep 24 2017 10:42AM Increased oxygen demand Sep 24 2017 10:42AM COPD (chronic obstructive pulmonary disease) Oct 16 2017 9:31AM COPD (chronic obstructive pulmonary disease) Dec 17 2017 10:11AM Payers Insurance Name Company Name Plan Name Plan Number Policy Number Policy Group Number Start Date Medicare RHC Medicare RHC [id number] N/A C[employer] Medicare Supplement [employer]a Medicare Supplement [id number] N/A Medicare RHC Medicare RHC [id number] N/A Medicare Part A Medicare Part A [id number] Thursday, 2008 [employer] [facility] [id number] N/A Medicare Part B Medicare Of [place] [id number] N/A Medicare Part A Medicare - Lab/Xray [id number] Thursday, July 03, 2008 [employer] Financial Assistance [employer] Financial [place] 25 Percent Tuesday, May 05, 2015 History of Encounters Visit Date Visit Type Provider 12/17/[address] Margarita Wells DO 10/16/[address] Margarita Wells DO 09/24/2017 [facility] Rom[facility] Wells MD 09/24/2017 [facility] Padmini Barber MD 09/24/[address] Margarita Wells DO 09/17/2017 [facility] Padmini Barber MD 09/17/[address] Margarita Wells DO 07/17/[address] Margarita Wells DO 06/19/[address] Margarita Wells DO 02/13/[address] Margarita Wells DO 10/08/[address] Margarita Wells DO 09/11/[address] Margarita Wells DO 06/19/2016 Office visit 06/19/[address] Margarita Wlels DO 05/22/[address] Margarita Wells DO 03/21/2016 Office visit Georgette Hernández APRN 01/17/[address] Margarita Wells DO 10/12/[address] Margarita Wells DO 09/12/[address] Margarita Wells DO 08/10/[address] Margarita Wells DO 07/11/[address] Margarita Wells DO 06/07/[address] Margarita Wells DO 05/10/[address] Margarita Wells DO 05/08/2015 Office visit Kathy Batista MD 04/28/2015 [facility] Román Wells MD 04/19/[address] Margarita Wells DO 04/11/[address] Margarita Wells DO 04/06/2015 Office visit Kathy Batista MD 04/05/[address] Margarita Wells DO 04/02/2015 [facility] Padmini Barber MD 03/28/[address] Margarita Wells DO 03/22/2015 [facility] Padmini Barber MD
--- OUTSIDE RECORDS SUMMARY | 2018-01-15 08:13 | XMS REPORT ---
Author Margarita Irby [facility] Address [address] [place], [place] [id number] Care Team Providers Care College Counselor Name Role Phone Margarita Wells PCP Margarita Wells PreferredProvider Allergies and Adverse Reactions Name Reaction Notes PENICILLINS Syncope SULFA (SULFONAMIDES) rash Plan of Treatment Planned Activity Comments Planned Date Planned Time Plan/Goal dysphagia and routine colon cancer screening 04/11/2015 10:15 AM Medications Active Name Start Date Estimated Completion Date SIG Comments Centrum Silver 400-250 mcg oral tablet,chewable chew 1 tablet by oral route daily Flonase Allergy Relief 50 mcg/actuation nasal spray,suspension inhale 1 spray (50 mcg) in each nostril by intranasal route once daily albuterol sulfate 2.5 mg /3 mL (0.083 %) inhalation solution for nebulization 03/21/2016 inhale 3 milliliters (2.5 mg) by nebulization route 4 times per day albuterol sulfate 2.5 mg /3 mL (0.083 %) inhalation solution for nebulization 05/15/2016 INHALE 3 MILLILITERS (2.5 MG) BY NEBULIZATION ROUTE 4 TIMES PER DAY omeprazole 20 mg oral capsule,delayed release(DR/EC) 06/19/2016 01/15/2017 take 1 capsule by oral route daily for 30 days Symbicort 160-4.5 mcg/actuation inhalation HFA aerosol inhaler 06/19/201601/15 inhale 2 puffs by inhalation route 2 times per day in the morning and evening for 30 days metoprolol succinate 25 mg oral tablet extended release 24 hr 09/11/20162017 TAKE 1 TABLET BY ORAL ROUTE DAILY FOR 30 DAYS for 30 days pravastatin 40 mg oral tablet 09/11/2016 09/06/2017 TAKE 1 TABLET (40 MG) BY ORAL ROUTE ONCE DAILY FOR 30 DAYS for 30 days Singulair 10 mg oral tablet 09/11/2016 09/06/2017 TAKE 1 TABLET (10 MG) BY ORAL ROUTE ONCE DAILY IN THE EVENING FOR 30 DAYS Anoro Ellipta 62.5-25 mcg/actuation inhalation blister with device 10/08/2016 03/07/2017 inhale 1 puff by inhalation route once daily at the same time each day for 30 days Arnuity Ellipta 200 mcg/actuation inhalation blister with device 10/08/201603/07/2017 inhale 1 puff (200 mcg) by inhalation route once daily at the same time each day for 30 days Remeron 15 mg oral tablet 10/08/2016 03/07/2017 take 1 tablet (15 mg) by oral route once daily before bedtime for 30 days Name Start Date Expiration Date SIG Comments [...] 201509/09/2015 take as directed for 30 days metoprolol succinate 25 mg oral tablet extended release 24 hr 10/12/20152015 take 1 tablet by oral route daily for 30 days Remeron 30 mg oral tablet 10/12/2015 01/10/2016 take 1 tablet (30 mg) by oral route once daily before bedtime for 30 days Singulair 10 mg oral tablet 10/12/2015 02/09/2016 take 1 tablet (10 mg) by oral route once daily in the evening for 30 days hydrocodone-acetaminophen 5-325 mg oral tablet 05/23/2016 06/22/2016 take 1 tablet by oral route every 12 hours for 30 days pravastatin 40 mg oral tablet 06/20/2016 08/19/2016 take 1 tablet (40 mg) by oral route once daily for 30 days Ventolin HFA 90 mcg/actuation inhalation HFA aerosol inhaler 07/05/20162016 inhale 1 puff (90 mcg) by inhalation route every 4-6 hours as needed for 30 days aspirin 81 mg oral tablet,chewable 09/11/2016 10/11/2016 chew 1 tablet (81 mg) by oral route once daily for 30 days Remeron 30 mg oral tablet 09/11/2016 10/11/2016 TAKE 1 TABLET (30 MG) BY ORAL ROUTE ONCE DAILY BEFORE BEDTIME FOR 30 DAYS for 30 days Discontinued Name Start Date Discontinued Date SIG [...] approximately 12 hours apart for 30 days Advair Diskus 500-50 mcg/dose [...] IN THE MORNING AND IN THE EVENING Problem List Description Status Onset Chronic back pain Active Chronic Obstructive Pulmonary Disease Active GERD (gastroesophageal reflux disease) Active Hyperlipemia Active Nocturia Active 05/08/2015 Bladder outlet obstruction Active 05/08/2015 Benign enlargement of prostate Active 05/08/2015 Vital Signs Date Time BP-Sys(mm[Hg] BP-Lucy(mm[Hg]) HR(bpm) RR(rpm) Temp WT HT HC BMI BSA BMI Percentile O2 Sat(%) 10/08/2016 1:52:00 PM 120 mmHg 68 mmHg 96 bpm 20 rpm 98.9 F 137.5 lbs 70 in 19.73 kg/m2 1.76 m2 91 % 09/11/2016 1:26:00 PM 124 mmHg 72 mmHg 101 bpm 20 rpm 99.1 F 137.375 lbs 70 in 19.7111 kg/m 1.7543 m 93 % 06/19/2016 1:36:00 PM 142 mmHg 82 mmHg 81 bpm 20 rpm 97.2 F 139.8 lbs 70 in 20.06 kg/m2 1.77 m2 96 % 05/22/2016 2:12:00 PM 170 mmHg 70 mmHg 106 bpm 20 rpm 97.7 F 139 lbs 70 in 19.9442 kg/m 1.7646 m 91 % 03/21/2016 10:23:00 AM 132 mmHg 66 mmHg 104 bpm 18 rpm 97.9 F 134.375 lbs 70 in 19.28 kg/m2 1.74 m2 96 % 01/17/2016 10:27:00 AM 132 mmHg 72 mmHg 95 bpm 20 rpm 97.8 F 133.5 lbs 70 in 19.1551 kg/m 1.7294 m 94 % 10/12/2015 9:52:00 AM 110 mmHg 74 mmHg 104 bpm 20 rpm 97.7 F 136 lbs 70 in 19.51 kg/m2 1.75 m2 92 % 09/12/2015 9:44:00 AM 144 mmHg 68 mmHg 106 bpm 22 rpm 96.9 F 140 lbs 70 in 20.0877 kg/m 1.771 m 97 % 08/10/2015 9:22:00 AM 160 mmHg 80 mmHg 122 bpm 20 rpm 97.4 F 145.25 lbs 70 in 20.84 kg/m2 1.80 m2 92 % 07/11/2015 9:59:00 AM 126 mmHg 78 mmHg 110 bpm 22 rpm 97.6 F 136.5 lbs 70 in 19.5855 kg/m 1.7487 m 96 % 06/07/2015 9:49:00 AM 128 mmHg 74 mmHg 117 bpm 16 rpm 98 F 134 lbs 70 in 19.23 kg/m2 1.73 m2 96 % 05/10/2015 1:26:00 PM 110 mmHg 60 mmHg 92 bpm 22 rpm 98 F 135 lbs 70 in 19.3703 kg/m 1.7391 m 89 % 05/08/2015 11:04:00 AM 138 lbs 70 in 19.80 kg/m2 1.76 m2 04/19/2015 10:47:00 AM 140 mmHg 88 mmHg 103 bpm 22 rpm 98.2 F 138 lbs 70 in 19.8007 kg/m 1.7583 m 95 % 04/11/2015 1:18:00 PM 132 mmHg 64 mmHg 108 bpm 20 rpm 98.1 F 138 lbs 70 in 19.80 kg/m2 1.76 m2 97 % 04/06/2015 11:53:00 AM 141 lbs 70 in 20.2312 kg/m 1.7773 m 04/05/2015 3:18:00 PM 130 mmHg 72 mmHg 106 bpm 22 rpm 98.2 F 141 lbs 70 in 20.23 kg/m2 1.78 m2 91 % 03/28/2015 2:56:00 PM 130 mmHg 82 mmHg 109 bpm 22 rpm 97.6 F 150 lbs 70 in 21.5225 kg/m 1.8331 m 93 % Social History Name Description Comments Tobacco Former smoker smoked 50 years@ 1.5 pack QD (75 pack years), quit couple weeks ago from 04/11/15 Alcohol Never History of Procedures Date Ordered Description Order Status 03/28/2015 12:00 AM FECES CULTURE AEROBIC BACT Reviewed 03/28/2015 12:00 AM GIARDIA AG EIA Reviewed 03/28/2015 12:00 AM CLOSTRIDIUM AG EIA Reviewed 03/28/2015 12:00 AM COMPREHEN METABOLIC PANEL Reviewed 03/28/2015 12:00 AM ASSAY THYROID STIM HORMONE [...] VIEWS Reviewed 06/19/2016 12:00 AM LIPID PANEL Reviewed 06/19/2016 12:00 AM COMPLETE CBC W/AUTO DIFF WBC Reviewed 06/19/2016 12:00 AM ASSAY OF PSA TOTAL Reviewed 06/19/2016 12:00 AM OCCULT BLOOD FECES Reviewed Results Summary Date and Description Results 03/28/2015 3:58 PM AMYLASE 78 IU/LLIPASE 12.0 U/LGLUCOSE 69.0 mg/dLSODIUM 144.0 mmol/LPOTASSIUM 3.60 mmol/LCHLORIDE 96.0 mmol/LCO2 36.0 mmol/LBUN 10.0 mg/ dLCREATININE 1.10 mg/dLSGOT/AST 43.0 IU/LSGPT/ALT 41.0 IU/LALK PHOS 93.0 IU/ LTOTAL PROTEIN 8.20 g/dLALBUMIN 4.70 g/dLTOTAL BILI 0.50 mg/dLCALCIUM 10.20 mg/ dLAGE 62 GFR NonAA 68 GFR AA 82 eGFR >60 mL/min/1.73meGFR AA* >60 TSH 0.750 uIU/mL 03/29/2015 1:19 PM C DIFFICILE [...] >60 mL/min/1.73meGFR AA* >60 06/19/2016 2:40 PM WBC 7.4 RBC 4.94 HGB 14.90 g/dLHCT 45.50 %MCV 92.0 fLMCH 30.20 pgMCHC 32.70 g/dLRDW SD 42 RDW CV 12.40 %MPV 10.0 fLPLT 236 NRBC# 0.00 NRBC% 0.0 %NEUT 78.40 %%LYMP 12.90 %%MONO 7.50 %%EOS 0.40 %%BASO 0.40 %#NEUT 5.81 #LYMP 0.96 #MONO 0.56 #EOS 0.03 #BASO 0.03 MANUAL DIFF NOT IND TRIGLYCERIDES 114.0 mg/dLCHOLESTEROL 215.0 mg/dLHDL 44.0 mg/dLTOT CHOL/HDL 4.9 LDL (CALC) 148.0 mg/dLPSA TOTAL 1.010 ng/mL 06/21/2016 3:00 PM OCC BLD STOOL POSITIVE History Of Immunizations Name Date Admin Mfg Name Mfg Code Trade Name Lot# Route Inj Vis Given Vis Pub CVX Pneumococcal 04/19/2015 Hmmfx-Giltyq-Jprqmlk-Praxis WAL Prevnar 13 [id number] Intramuscular Left Deltoid 04/19/2015 07/01/2012 133 X 04/19/2015 Jival-Iivhnc-Fijculp-Praxis WAL Prevnar 13 [id number] Intramuscular Left Deltoid 04/19/2015 07/01/2012 133 Influenza 04/19/2015 sanofi pasteur PMC Fluarix Quadrivalent [id number] Intramuscular Right Deltoid 04/19/2015 12/21/2014 141 Influenza 01/17/2016 sanofi pasteur PMC Fluzone High-Dose [id number] Intramuscular Left Deltoid 01/17/2016 12/09/2014 141 History of Past Illness Name Date of Onset Comments GERD (gastroesophageal reflux disease) Hyperlipemia Chronic back pain Chronic Obstructive Pulmonary Disease Nocturia 05/08/2015 Bladder outlet obstruction 05/08/2015 Benign enlargement of prostate 05/08/2015 Right upper quadrant pain Mar 28 2015 [...] 1:33PM Chronic bronchitis, unspecified chronic bronchitis type Jun 07 2015 9:57AM Frailty Jun 07 2015 9:57AM [...] obstructive pulmonary disease) Oct 08 2016 1:55PM Payers Insurance Name Company Name Plan Name Plan Number Policy Number Policy Group Number Start Date Humana Humana Claims Center [id number] N/A Medicare Part B Medicare Of [place] [id number] N/A Medicare Part A Medicare - Lab/Xray [id number] Thursday, July 03, 2008 [employer] [place] 25 Percent Tuesday, May 05, 2015 Medicare Part A Medicare Part A [id number] Thursday, July 03, 2008 History of Encounters Visit Date Visit Type Provider 10/08/[address] Margarita Wells DO 09/11/[address] Margarita Wells DO 06/19/2016 Office visit 06/19/[address] Margarita Wells DO 05/22/[address] Margarita Wells [...] 05/08/2015 Office visit Kathy Batista MD 04/28/2015 [facility] Román Wells MD 04/19/[address] Margarita Wells DO 04/11/[address] Margarita Wells DO 04/06/2015 Office visit Kathy Batista MD 04/05/[address] Margarita Wells DO 04/02/2015 [facility] Padmini Barber MD 03/28/[address] Margarita Wells DO 03/22/2015 [facility] Padmini Barber MD
--- OUTSIDE RECORDS SUMMARY | 2018-01-15 08:13 | XMS REPORT ---
Author Margarita Irby [facility] Address [address] [place], [place] [id number] Care Team Providers Care Public Weigher Name Role Phone Margarita Wells PCP Margarita Wells PreferredProvider Allergies and Adverse Reactions Name Reaction Notes PENICILLINS Syncope SULFA (SULFONAMIDES) rash Plan of Treatment Planned Activity Comments Planned Date Planned Time Plan/Goal dysphagia and routine colon cancer screening 04/11/2015 10:15 AM PFT 12/03/2016 12:00 AM Medications Active Name Start Date [...] BY NEBULIZATION ROUTE 4 TIMES PER DAY metoprolol succinate 25 mg oral tablet extended release 24 hr 09/11/20162017 TAKE 1 TABLET BY ORAL ROUTE DAILY FOR 30 DAYS for 30 days aspirin 81 mg oral tablet,chewable 11/13/2016 CHEW 1 TABLET (81 MG) BY ORAL ROUTE ONCE DAILY FOR 30 DAYS pravastatin 40 mg oral tablet 12/31/2016 04/30/2017 TAKE 1 TABLET(40 MG) BY MOUTH EVERY EVENING metoprolol succinate 25 mg oral tablet extended release 24 hr 02/13/2017 TAKE 1 TABLET BY ORAL ROUTE DAILY FOR 30 DAYS FOR 30 DAYS for 30 days Singulair 10 mg oral tablet 02/13/2017 TAKE 1 TABLET (10 MG) BY ORAL ROUTE ONCE DAILY IN THE EVENING FOR 30 DAYS Anoro Ellipta 62.5-25 mcg/actuation inhalation blister with device 03/04/2017 inhale 1 puff by inhalation route once daily at the same time each day for 30 days mirtazapine 15 mg oral tablet 03/05/2017 07/03/2017 TAKE 1 TABLET BY MOUTH EVERY NIGHT AT BEDTIME Arnuity Ellipta 200 mcg/actuation inhalation blister with device 03/05/201707/03/2017 INHALE 1 PUFF (200 MCG) BY INHALATION ROUTE ONCE DAILY AT THE SAME TIME EACH DAY FOR 30 DAYS Name Start Date Expiration [...] the morning and evening for 30 days pravastatin 40 mg oral tablet 06/20/2016 08/19/2016 take 1 tablet (40 mg) by oral route once daily for 30 days Ventolin HFA 90 mcg/actuation inhalation HFA aerosol inhaler 07/05/20162016 inhale 1 puff (90 mcg) by inhalation route every 4-6 hours as needed for 30 days Remeron 30 mg oral [...] oral route once daily for 30 days omeprazole 20 mg oral capsule,delayed release(DR/EC) 01/31/2017 03/02/2017 TAKE 1 CAPSULE BY MOUTH TWICE DAILY Discontinued Name Start Date Discontinued Date SIG [...] 03/28/2015 omeprazole 20 mg oral tablet,delayed release (/EC) 04/11/2015 take 1 tablet by oral route [...] HC BMI BSA BMI Percentile O2 Sat(%) 02/13/2017 10:21:00 AM 138 mmHg 80 mmHg 105 bpm 20 rpm 98.2 F 139 lbs 70 in 19.94 kg/m2 1.76 m2 94 % 10/08/2016 1:52:00 PM 120 mmHg 68 mmHg 96 bpm 20 rpm 98.9 F 137.5 lbs 70 in 19.729 kg/m 1.7551 m 91 % 09/11/2016 1:26:00 PM 124 mmHg [...] OCCULT BLOOD FECES Reviewed 02/13/2017 12:00 AM [facility] MEDICARE - flu vaccine administration Reviewed 02/13/2017 12:00 AM INFLUENZA VACCINE SPLT PRSRV FREE INC ANTIGEN IM Reviewed Results Summary Date and Description Results [...] Vis Given Vis Pub CVX Pneumococcal 04/19/2015 Rmxcf-Lkqlak-Kmsvadt-Praxis WAL Prevnar 13 [id number] Intramuscular Left Deltoid 04/19/2015 07/01/2012 133 X 04/19/2015 Jnlim-Agpush-Wbqwxfh-Praxis WAL Prevnar 13 [id number] Intramuscular Left Deltoid 04/19/2015 07/01/2012 133 Influenza 04/19/2015 sanofi pasteur PMC Fluarix Quadrivalent [id number] Intramuscular Right Deltoid 04/19/2015 12/21/2014 141 Influenza 01/17/2016 sanofi pasteur PMC Fluzone High-Dose [id number] Intramuscular Left Deltoid 01/17/2016 12/09/2014 141 Influenza 02/13/2017 sanofi pasteur PMC Fluzone [id number] Intramuscular Left Deltoid 02/13/2017 12/09/2014 135 History [...] 9:57AM Frailty Jun 07 2015 9:57AM Tachycardia b 2015 9:57AM Spinal stenosis of lumbar region [...] 10:24AM Flu Vaccine Feb 13 2017 11:35AM Payers Insurance Name Company Name Plan Name Plan Number Policy Number Policy Group Number Start Date Humana Humana Claims Center [id number] N/A Medicare Part B Medicare Of [place] [id number] N/A Medicare Part A Medicare - Lab/Xray [id number] Thursday, July 03, 2008 [email or web address] [place] 25 Percent Tuesday, May 05, 2015 Medicare Part A Medicare Part A [id number] Thursday, July 03, 2008 History of Encounters Visit Date Visit Type Provider 02/13/[address] Margarita Wells DO 10/08/[address] Margarita Wells DO 09/11/[address] Margarita Wells DO 06/19/2016 Office visit 06/19/[address] Margarita Wells DO 05/22/[address] Margarita Wells DO 03/21/2016 Office visit Georgette Hernández STRIKE OUT MACHINE OPERATOR 01/17/[address] Margarita Wells DO 10/12/[address] Margarita Wells DO 09/12/[address] Margarita Wells DO 08/10/[address] Margarita Wells DO 07/11/[address] Margarita Wells DO 06/07/[address] Margarita Wells DO 05/10/[address] Margarita Wells DO 05/08/2015 Office visit Kathy Batista MD 04/28/2015 [facility] Román Wells MD 04/19/[address] Margarita Wells DO 04/11/[address] Margarita Wells DO 04/06/2015 Office visit Kathy Batista MD 04/05/[address] Margarita Wells DO 04/02/2015 [facility] Padmini Barber MD 03/28/[address] Margarita Wells DO 03/22/2015 [facility] Padmini Barber MD
--- OUTSIDE RECORDS SUMMARY | 2018-01-15 08:14 | XMS REPORT ---
Author Author Margarita Wells [facility] Address [address] [place], [place] [address] Care Team Providers Care Reinsurance Claim Analyst Name Role Phone Margarita Wells PCP Margarita Wells PreferredProvider Allergies and Adverse Reactions Name Reaction Notes PENICILLINS Syncope SULFA (SULFONAMIDES) rash Plan of Treatment Planned Activity Comments Planned Date Planned Time Plan/Goal US abdomen complete 03/28/2015 12:[address] abdomen and pelvis with contrast 03/28/2015 12:00 AM MRI LUMBAR SPINE W/O CONTRAST 04/07/2015 12:00 AM 2D echocardiography with color flow Doppler 04/19/2015 12:00 AM dysphagia and routine colon cancer screening 04/11/2015 10:15 AM Medications Active Name Start Date Estimated Completion Date SIG Comments Centrum Silver 400-250 mcg oral tablet,chewable chew 1 tablet by oral route daily Singulair 10 mg oral tablet 11/09/2015 TAKE 1 TABLET (10 MG) BY ORAL ROUTE ONCE DAILY IN THE EVENING FOR 30 DAYS Flonase Allergy Relief 50 mcg/actuation nasal spray,suspension inhale 1 spray (50 mcg) in each nostril by intranasal route once daily Spiriva Respimat 2.5 mcg/actuation inhalation mist inhale 2 puffs (5 mcg ) by inhalation route once daily at the same time each day albuterol sulfate 2.5 mg /3 mL [...] by oral route daily for 30 days metoprolol succinate 25 mg oral tablet extended release 24 hr 06/19/20162016 TAKE 1 TABLET BY ORAL ROUTE DAILY FOR 30 DAYS for 30 days ProAir HFA 90 mcg/actuation inhalation HFA aerosol inhaler 06/19/20162016 inhale 1 puff (90 mcg) by inhalation route every 4 hours as needed for 30 days Remeron 30 mg oral tablet 06/19/2016 08/18/2016 TAKE 1 TABLET (30 MG) BY ORAL ROUTE ONCE DAILY BEFORE BEDTIME FOR 30 DAYS for 30 days Symbicort 160-4.5 mcg/actuation inhalation HFA aerosol inhaler 06/19/201601/15 inhale 2 puffs by inhalation route 2 times per day in the morning and evening for 30 days pravastatin 40 mg oral tablet 06/20/2016 08/19/2016 take 1 tablet (40 mg) by oral route once daily for 30 days Name Start Date Expiration [...] route every 12 hours for 30 days Discontinued Name Start Date [...] same time each day for 30 days Zyrtec 10 mg oral tablet 06/19/2016 take 1 tablet (10 mg) by oral route once daily doxycycline monohydrate 100 mg oral tablet 03/21/2016 05/22/2016 take 1 tablet by oral route 2 times a day prednisone 20 mg oral tablet 03/21/2016 05/22/2016 take 3 tablets daily x2, then 2 tablets daily x2, then 1 tablet daily x4 Problem List Description Status Onset Chronic back pain Active Chronic Obstructive Pulmonary Disease Active GERD (gastroesophageal reflux disease) Active Hyperlipemia Active Nocturia Active 05/08/2015 Bladder outlet obstruction Active 05/08/2015 Benign enlargement of prostate Active 05/08/2015 Vital Signs Date Time BP-Sys(mm[Hg] BP-Lucy(mm[Hg]) HR(bpm) RR(rpm) Temp WT HT HC BMI BSA BMI Percentile O2 Sat(%) 06/19/2016 1:36:00 PM 142 mmHg 82 mmHg [...] F 138 lbs 70 in 19.80 kg/m2 1.7583 m 95 % 04/11/2015 1:18:00 PM 132 mmHg 64 mmHg 108 bpm 20 rpm 98.1 F 138 lbs 70 in 19.8007 kg/m 1.76 m2 97 % 04/06/2015 11:53:00 AM 141 lbs 70 in 20.23 kg/m2 1.7773 m 04/05/2015 3:18:00 PM 130 mmHg 72 mmHg 106 bpm 22 rpm 98.2 F 141 lbs 70 in 20.2312 kg/m 1.78 m2 91 % 03/28/2015 2:56:00 PM 130 mmHg 82 mmHg 109 bpm 22 rpm 97.6 F 150 lbs 70 in 21.52 kg/m2 1.8331 m 93 % Social History Name [...] ASSAY OF AMYLASE Reviewed 03/28/2015 12:00 AM Consult/Referral Reviewed 04/05/2015 12:00 AM Consult/Referral Reviewed 04/19/2015 12:00 AM IM ADM PRQ ID SUBQ/IM [id number] 1 VACCINE Reviewed 04/19/2015 12:00 AM IM ADM PRQ ID SUBQ/IM [id number] VACCINE Reviewed 04/19/2015 12:00 AM PNEUMOCOCCAL VACC 13 LILIANE IM Reviewed 04/19/2015 12:00 AM INFLUENZA VACCINE QUADRIVALENT 3 YRS PLUS IM Reviewed 05/08/2015 12:11 PM URINALYSIS AUTO W/O SCOPE Reviewed 09/12/2015 12:00 AM COMPREHEN METABOLIC PANEL Returned 01/17/2016 12:00 AM FLU VACC 4 LILIANE 3 YRS PLUS IM Reviewed 05/22/2016 12:00 AM RADEX RIBS UNI W/POSTEROANT CH MINIMUM 3 VIEWS Returned 06/19/2016 12:00 AM LIPID PANEL Returned 06/19/2016 12:00 AM COMPLETE CBC W/AUTO DIFF WBC Returned 06/19/2016 12:00 AM ASSAY OF PSA TOTAL Returned 06/19/2016 12:00 AM OCCULT BLOOD FECES Returned Results Summary Data and Description Results 03/28/2015 3:58 PM AMYLASE [...] Vis Given Vis Pub CVX Pneumococcal 04/19/2015 Ccbid-Duosrb-Aefhnvx-Praxis WAL Prevnar 13 [id number] Intramuscular Left Deltoid 04/19/2015 07/01/2012 133 X 04/19/2015 Qrqcb-Lmcvyw-Nxnletr-Praxis WAL Prevnar 13 [id number] Intramuscular Left Deltoid 04/19/2015 07/01/2012 133 Influenza 04/19/2015 sanofi pasteur PMC Fluarix Quadrivalent [id number] Intramuscular Right Deltoid 04/19/2015 12/21/2014 141 Influenza 01/17/2016 sanofi pasteur PMC Fluzone High-Dose [id number] Intramuscular Left Deltoid 01/17/2016 12/09/2014 141 History [...] Prostate cancer screening Jun 19 2016 1:38PM Payers Insurance Name Company Name Plan Name Plan Number Policy Number Policy Group Number Start Date Humana Humana Claims Center [id number] N/A Medicare Part B Medicare Of [place] [id number] N/A Medicare Part A Medicare - Lab/Xray [id number] Thursday, July 03, 2008 [employer] Financial Assistance [employer] [place] 25 Percent Tuesday, May 05, 2015 Medicare Part A Medicare Part A [id number] Thursday, July 03, 2008 History of Encounters Visit Date Visit Type Provider 06/19/2016 Office visit 06/19/[address] Margarita Wells DO 05/22/[address] Margarita Wells DO 03/21/2016 Office visit Georgette Hernández SENIOR ACCOUNT MANAGER 01/17/[address] Margarita Wells DO [...] Office visit Dr. Margarita Wells DO 04/02/2015 [facility] Padmini Barber MD 03/28/[address] Margarita Wells DO 03/22/2015 [facility] Padmini Barber MD
--- OUTSIDE RECORDS SUMMARY | 2018-01-15 08:15 | XMS REPORT ---
Author Margarita Irby [facility] Address [address] [place], [place] [address] Care Team Providers Care Hot Plate Plywood Press Operator Name Role Phone Margarita Wells PCP Margarita [...] oral route once daily for 30 days aspirin 81 mg oral tablet,chewable 11/13/2016 CHEW 1 TABLET (81 MG) BY ORAL ROUTE ONCE DAILY FOR 30 DAYS metoprolol succinate 25 mg oral tablet extended release 24 hr 12/10/2016 TAKE 1 TABLET BY ORAL ROUTE DAILY FOR 30 DAYS FOR 30 DAYS Name Start Date Expiration [...] Vis Given Vis Pub CVX Pneumococcal 04/19/2015 Dtlwr-Knhqix-Jxrklmh-Praxis WAL Prevnar 13 [id number] Intramuscular Left Deltoid 04/19/2015 07/01/2012 133 X 04/19/2015 Smyeu-Krbyrl-Udflcxh-Praxis WAL Prevnar 13 [id number] Intramuscular Left Deltoid 04/19/2015 07/01/2012 133 Influenza 04/19/2015 sanofi pasteur PMC Fluarix Quadrivalent [id number] Intramuscular Right Deltoid 04/19/2015 12/21/2014 141 Influenza 01/17/2016 sanofi pasteur PMC Fluzone High-Dose [id number] Intramuscular Left Deltoid 01/17/2016 12/09/2014 141 History [...] 1:33PM Chronic bronchitis, unspecified chronic bronchitis type Fe2015 9:57AM Frailty b 2015 9:57AM Tachycardia Jun 07 2015 9:57AM [...] obstructive pulmonary disease) Dec 03 2016 4:16PM Payers Insurance Name Company Name Plan Name Plan Number Policy Number Policy Group Number Start Date Humana Humana Claims Center [id number] N/A Medicare Part B Medicare Of [place] [id number] N/A Medicare Part A Medicare - Lab/Xray [id number] Thursday, July 03, 2008 [employer] [place] 25 Percent Tuesday, May 05, 2015 Medicare Part A Medicare Part A [id number] Thursday, July 03, 2008 History of Encounters [...] 05/08/2015 Office visit Kathy Batista MD 04/28/2015 [facility] Román Wells MD 04/19/[address] Margarita Wells DO 04/11/[address] Margarita Wells DO 04/06/2015 Office visit Kathy Batista MD 04/05/[address] Margarita Wells DO 04/02/2015 [facility] Padmini Barber MD 03/28/[address] Margarita Wells DO 03/22/2015 [facility] Padmini Barber MD
--- OUTSIDE RECORDS SUMMARY | 2018-01-15 08:15 | XMS REPORT ---
Author Margarita Irby [facility] Address [address] [place], [place] [address] Care Team Providers Care Director Physical Name Role Phone Margarita Wells PCP Allergies and Adverse Reactions Name Reaction Notes PENICILLINS Syncope SULFA (SULFONAMIDES) rash Plan of Treatment Planned Activity Comments Planned Date Planned Time Plan/Goal US EXAM ABDOM COMPLETE 03/28/2015 12:[address] ABD & PELV W/CONTRAST 03/28/2015 12:00 AM MRI LUMBAR SPINE W/O DYE 04/07/2015 12:00 AM TTE W/DOPPLER COMPLETE 04/19/2015 12:00 AM dysphagia and routine colon cancer screening 04/11/2015 10:15 AM Medications Active Name Start Date Estimated Completion Date SIG Comments Centrum Silver 400-250 mcg oral tablet,chewable chew 1 tablet by oral route daily Symbicort 160-4.5 mcg/actuation inhalation HFA aerosol inhaler inhale 2 puffs by inhalation route 2 times per day in the morning and evening Move Free Ultra 40-10-3.3 mg oral tablet take 1 tablet by oral route daily Combivent Respimat 20-100 mcg/actuation inhalation mist 05/10/2015 09/07/2015 inhale 1 puff by inhalation route 4 times per day ; may take additional puffs as needed not to exceed 6 puffs in 24hrs for 30 days Remeron 30 mg oral tablet 06/07/2015 09/05/2015 take 1 tablet (30 mg) by oral route once daily before bedtime for 30 days metoprolol succinate 25 mg oral tablet extended release 24 hr 06/07/20152015 take 1 tablet by oral route daily for 30 days Singulair 10 mg oral tablet 06/23/2015 10/21/2015 take 1 tablet (10 mg) by oral route once daily in the evening for 30 days Mucinex 1,200 mg oral tablet extended release 12hr 07/11/2015 09/05/2015 1 tab nightly omeprazole 20 mg oral capsule,delayed release(DR/EC) 07/11/2015 01/07/2016 1 capsule, BID for 30 days Chantix Starting Month Box 0.5 mg (11)- 1 mg (42) oral tablets,dose pack 201509/09/2015 take as directed for 30 days Name Start Date Expiration [...] oral route once daily for 3 days hydrocodone-acetaminophen 5-325 mg oral tablet 06/07/2015 07/07/2015 take 1 tablet by oral route every 8 hours as needed for 30 days Discontinued Name Start Date [...] tablet by oral route daily change frequency simvastatin 80 mg oral tablet 04/19/2015 take 1 tablet by oral route daily furosemide 20 mg oral tablet 03/28/2015 take 1 tablet (20 mg) by oral route once daily cimetidine 800 mg oral tablet 04/19/2015 [...] for [address] Bryant. Problem List Description Status Onset Chronic back pain Active Chronic Obstructive Pulmonary Disease Active GERD (gastroesophageal reflux disease) Active Hyperlipemia Active Nocturia Active 05/08/2015 Bladder outlet obstruction Active 05/08/2015 Benign enlargement of prostate Active 05/08/2015 Vital Signs Date Time BP-Sys(mm[Hg] BP-Lucy(mm[Hg]) HR(bpm) RR(rpm) Temp WT HT HC BMI BSA BMI Percentile O2 Sat(%) 08/10/2015 9:22:00 AM 160 mmHg 80 mmHg [...] 03/28/2015 12:00 AM FECES CULTURE AEROBIC BACT Returned 03/28/2015 12:00 AM GIARDIA AG EIA Returned 03/28/2015 12:00 AM CLOSTRIDIUM AG EIA Returned 03/28/2015 12:00 AM COMPREHEN METABOLIC PANEL Returned 03/28/2015 12:00 AM ASSAY THYROID STIM HORMONE Returned 03/28/2015 12:00 AM ASSAY OF LIPASE Returned 03/28/2015 12:00 AM ASSAY OF AMYLASE Returned 03/28/2015 12:00 AM Consult/Referral Reviewed 04/05/2015 12:00 AM Consult/Referral Reviewed 04/19/2015 12:00 AM IM ADM PRQ ID SUBQ/IM [id number] 1 VACCINE Reviewed 04/19/2015 12:00 AM IM ADM PRQ ID SUBQ/IM [id number] EA VACCINE Reviewed 04/19/2015 12:00 AM PNEUMOCOCCAL VACC 13 LILIANE IM Reviewed 04/19/2015 12:00 AM INFLUENZA VACCINE QUADRIVALENT 3 YRS PLUS IM Reviewed 05/08/2015 12:11 PM URINALYSIS AUTO W/O SCOPE Reviewed Results Summary Data and Description Results 03/28/2015 3:58 PM AMYLASE 78 IU/LLIPASE 12.0 U/LGLUCOSE 69.0 mg/dLSODIUM 144.0 mmol/LPOTASSIUM 3.60 mmol/LCHLORIDE 96.0 mmol/LCO2 36.0 mmol/LBUN 10.0 mg/ dLCREATININE 1.10 mg/dLSGOT/AST 43.0 IU/LSGPT/ALT 41.0 IU/LALK PHOS 93.0 IU/ LTOTAL PROTEIN 8.20 g/dLALBUMIN 4.70 g/dLTOTAL BILI 0.50 mg/dLCALCIUM 10.20 mg/ dLeGFR >60 mL/min/1.73mTSH 0.750 uIU/mL 03/29/2015 1:19 PM C DIFFICILE NAAT TNP-FORMED STOOL 05/08/2015 12:11 PM Clarity Ur -VE Color Ur -VE Glucose Ur-sCnc -VE Bilirub Ur Ql Strip -VE Ketones Ur Ql Strip -VE Sp Gr Ur Qn 1015 Hgb Ur Ql Strip -VE pH Ur- LsCnc 6.0 Prot Ur Ql Strip -VE Urobilinogen Ur-mCnc -VE Nitrite Ur Ql Strip -VE WBC Est Ur Ql Strip -VE History Of Immunizations Name Date Admin Mfg Name Mfg Code Trade Name Lot# Route Inj Vis Given Vis Pub CVX PCV 04/19/2015 Rqkpn-Tvwsby-[place]-Praxis WAL Prevnar 13 [id number] Intramuscular Left Deltoid 04/19/2015 07/01/2012 133 X 04/19/2015 Vlqbj-Adkook-Mczvitw-Praxis WAL Prevnar 13 [id number] Intramuscular Left Deltoid 04/19/2015 07/01/2012 133 Influenza 04/19/2015 sanofi pasteur PMC Fluarix Quadrivalent [id number] Intramuscular Right Deltoid 04/19/2015 12/21/2014 141 History of Past Illness Name Date [...] 2015 9:29AM Frailty Aug 10 2015 9:29AM Payers Insurance Name Company Name Plan Name Plan Number Policy Number Policy Group Number Start Date Humana Humana Claims Center [id number] N/A Medicare Part B Medicare Of [place] [id number] N/A Medicare Part A Medicare Part A [id number] Thursday, 2008 History of Encounters Visit Date Visit Type Provider 08/10/[address] Margarita Wells DO 07/11/[address] Margarita Wells DO 06/07/[address] Margarita Wells DO 05/10/[address] Margarita Wells DO 05/08/2015 Office visit Kathy Batista MD 04/28/2015 [facility] Román Wells MD 04/19/[address] Margarita Wells DO 04/11/[address] Margarita Wells DO 04/06/2015 Office visit Kathy Batista MD 04/05/[address] Margarita Wells DO 04/02/2015 [facility] Padmini Barber MD 03/28/[address] Margarita Wells DO 03/22/2015 [facility] Padmini Barber MD
[2018-01-15] MEDS ORDERED: NS IV 500 ML 500 ML IV PRN (08:16)
--- OUTSIDE RECORDS SUMMARY | 2018-01-15 08:16 | XMS REPORT ---
Author Margarita Irby [facility] Address [address] [place], [place] [address] Care Team Providers Care Radio Time Buyer Name Role Phone Margarita Wells PCP Margarita [...] routine colon cancer screening 04/11/2015 10:15 AM LIPID PANEL 06/19/2016 12:00 AM CBC for General Health Panel 06/19/2016 12:00 AM PSA TOTAL 06/19/2016 12:00 AM FOBT 1st specimen 06/19/2016 12:00 AM Medications Active Name Start Date [...] daily at the same time each day metoprolol succinate 25 mg oral tablet extended release 24 hr 01/17/20162016 TAKE 1 TABLET BY ORAL ROUTE DAILY FOR 30 DAYS for 30 days Remeron 30 mg oral tablet 01/17/2016 08/14/2016 TAKE 1 TABLET (30 MG) BY ORAL ROUTE ONCE DAILY BEFORE BEDTIME FOR 30 DAYS for 30 days Symbicort 160-4.5 mcg/actuation inhalation HFA aerosol inhaler 01/17/201608/14 inhale 2 puffs by inhalation route 2 times per day in the morning and evening for 30 days albuterol sulfate 2.5 mg /3 mL (0.083 %) inhalation solution for nebulization 03/21/2016 inhale 3 milliliters (2.5 mg) by nebulization route 4 times per day albuterol sulfate 2.5 mg /3 mL (0.083 %) inhalation solution for nebulization 05/15/2016 INHALE 3 MILLILITERS (2.5 MG) BY NEBULIZATION ROUTE 4 TIMES PER DAY hydrocodone-acetaminophen 5-325 mg oral tablet 05/23/2016 06/22/2016 take 1 tablet by oral route every 12 hours for 30 days omeprazole 20 mg oral capsule,delayed release(DR/EC) 06/19/2016 01/15/2017 take 1 capsule by oral route daily for 30 days Name Start Date [...] daily in the evening for 30 days ProAir HFA 90 mcg/actuation inhalation HFA aerosol inhaler 01/17/20162016 inhale 1 puff (90 mcg) by inhalation route every 4 hours as needed for 30 days Discontinued [...] UNI W/POSTEROANT CH MINIMUM 3 VIEWS Returned Results Summary Data and Description Results [...] AA 91 eGFR >60 mL/min/1.73meGFR AA* >60 History Of Immunizations Name Date Admin Mfg Name Mfg Code Trade Name Lot# Route Inj Vis Given Vis Pub CVX Pneumococcal 04/19/2015 Yoilm-Ptyuxq-Dgnnsis-Praxis WAL Prevnar 13 [id number] Intramuscular Left Deltoid 04/19/2015 07/01/2012 133 X 04/19/2015 Vhctc-Dhqmyd-Kcgjiff-Praxis WAL Prevnar 13 [id number] Intramuscular Left Deltoid 04/19/2015 07/01/2012 133 Influenza 04/19/2015 [facility] Fluarix Quadrivalent [id number] Intramuscular Right Deltoid 04/19/2015 12/21/2014 141 Influenza 01/17/2016 [facility] Fluzone High-Dose [id number] Intramuscular Left Deltoid 01/17/2016 12/09/2014 141 History [...] Number Start Date Humana Humana Claims Center [id number] N/A Medicare Part B Medicare Of [place] [id number] N/A Medicare Part A Medicare - Lab/Xray [id number] Thursday, July 03, 2008 [facility] Financial Assistance [facility] Financial [place] 25 Percent Tuesday, May 05, 2015 Medicare Part A Medicare Part A [id number] Thursday, July 03, 2008 History of Encounters [...]
--- OUTSIDE RECORDS SUMMARY | 2018-01-15 08:17 | XMS REPORT ---
Author Margarita Irby [facility] Address [address] [place], [place] [address] Care Team Providers Care Machine Wood Sander Name Role Phone Margarita Wells PCP Margarita [...] with color flow Doppler 04/19/2015 12:00 AM Ribs, Unilateral with Chest PA, 3Views - MOB 05/22/2016 12:00 AM dysphagia and routine colon cancer [...] each day Zyrtec 10 mg oral tablet take 1 tablet (10 mg) by oral route once daily metoprolol succinate 25 mg oral tablet extended release 24 hr 01/17/20162016 TAKE 1 TABLET BY ORAL ROUTE DAILY FOR 30 DAYS for 30 days omeprazole 20 mg oral capsule,delayed release(DR/EC) 01/17/2016 08/14/2016 1 capsule, BID for 30 days Remeron 30 mg oral [...] PER DAY hydrocodone-acetaminophen 5-325 mg oral tablet 05/22/2016 06/21/2016 take 1 tablet by oral route every 12 hours for 30 days Name Start Date Expiration [...] same time each day for 30 days doxycycline monohydrate 100 mg oral tablet 03/21/2016 [...] HC BMI BSA BMI Percentile O2 Sat(%) 05/22/2016 2:12:00 PM 170 mmHg 70 mmHg [...] 4 LILIANE 3 YRS PLUS IM Reviewed Results Summary Data and Description Results [...] Vis Given Vis Pub CVX Pneumococcal 04/19/2015 Ibzfw-Pezbwd-Ozlcpum-Praxis WAL Prevnar 13 [id number] Intramuscular Left Deltoid 04/19/2015 07/01/2012 133 X 04/19/2015 Sejwk-Mdqqdt-Fomaije-Praxis WAL Prevnar 13 [id number] Intramuscular Left Deltoid 04/19/2015 07/01/2012 133 Influenza 04/19/2015 sanofi pasteur PMC Fluarix Quadrivalent [id number] Intramuscular Right Deltoid 04/19/2015 12/21/2014 141 Influenza 01/17/2016 sanofi pasteur PMC Fluzone High-Dose [id number] Intramuscular Left Deltoid 01/17/2016 12/09/2014 141 History [...] obstructive pulmonary disease) May 22 2016 2:16PM Payers Insurance Name Company Name Plan Name Plan Number Policy Number Policy Group Number Start Date Humana Humana Claims Center [id number] N/A [employer] Financial Assistance [employer] [place] 25 Percent Tuesday, May 05, 2015 Medicare Part A Medicare Part A [id number] Thursday, July 03, 2008 Medicare Part B Medicare Of [place] [id number] N/A Medicare Part A Medicare - Lab/Xray [id number] Thursday, July 03, 2008 History of Encounters Visit Date Visit Type Provider 05/22/[address] Margarita Wells DO [...] 05/08/2015 Office visit Kathy Batista MD 04/28/2015 [facility] Román Wells MD 04/19/[address] Margarita Wells DO 04/11/[address] Margarita Wells DO 04/06/2015 Office visit Kathy Batista MD 04/05/[address] Margarita Wells DO 04/02/2015 [facility] Padmini Barber MD 03/28/[address] Margarita Wells DO 03/22/2015 [facility] Padmini Barber MD
--- OUTSIDE RECORDS SUMMARY | 2018-01-15 08:17 | XMS REPORT ---
Author Margarita Irby [facility] Address [address] [place], [place] [address] Care Team Providers Care Financial Aid Administrator Name Role Phone Margarita Wells PCP Margarita Wells PreferredProvider Allergies and Adverse Reactions Name Reaction Notes PENICILLINS Syncope SULFA (SULFONAMIDES) rash Plan of Treatment Planned Activity Comments Planned Date Planned Time Plan/Goal dysphagia and routine colon cancer screening 04/11/2015 10:15 AM PFT 12/03/2016 12:[address] CHEST W/CONTRAST 06/10/2017 12:00 AM CMP 06/10/2017 12:00 AM CBC [...] DAILY IN THE EVENING FOR 30 DAYS mirtazapine 15 mg oral tablet 03/05/2017 07/03/2017 TAKE 1 TABLET BY MOUTH EVERY NIGHT AT BEDTIME pravastatin 40 mg oral tablet 05/06/2017 08/04/2017 TAKE 1 TABLET(40 MG) BY MOUTH EVERY EVENING omeprazole 20 mg oral capsule,delayed release(DR/EC) 05/12/2017 11/08/2017 TAKE 1 CAPSULE BY MOUTH TWICE DAILY Tariqleishaan Ellipta 100-62.5-25 mcg inhalation blister with device 06/19/201707/19 inhale 1 puff by inhalation route once daily at the same time each day for 30 days prednisone 20 mg oral tablet 06/19/2017 take 2 tablets (40 mg) by oral route once daily for 5 days Name Start Date Expiration Date SIG [...] oral route once daily for 30 days Discontinued Name Start Date [...] SAME TIME EACH DAY FOR 30 DAYS Problem List Description Status Onset Chronic back pain Active Chronic Obstructive Pulmonary Disease Active GERD (gastroesophageal reflux disease) Active Hyperlipemia Active Nocturia Active 05/08/2015 Bladder outlet obstruction Active 05/08/2015 Benign enlargement of prostate Active 05/08/2015 Vital Signs Date Time BP-Sys(mm[Hg] BP-Lucy(mm[Hg]) HR(bpm) RR(rpm) Temp WT HT HC BMI BSA BMI Percentile O2 Sat(%) 06/19/2017 9:44:00 AM 140 mmHg 84 mmHg [...] Reviewed 04/19/2015 12:00 AM PNEUMOCOCCAL VACC 13 LILIAEN IM Reviewed 04/19/2015 12:00 AM INFLUENZA VACCINE [...] Vis Given Vis Pub CVX Pneumococcal 04/19/2015 Iarvz-Jtrqdc-Fpwxhzw-Praxis WAL Prevnar 13 [id number] Intramuscular Left Deltoid 04/19/2015 07/01/2012 133 X 04/19/2015 Zboef-Zdwwdf-Agzgiba-Praxis WAL Prevnar 13 [id number] Intramuscular Left Deltoid 04/19/2015 07/01/2012 133 Influenza 04/19/2015 sanofi pasteur PMC Fluarix Quadrivalent [id number] Intramuscular Right Deltoid 04/19/2015 12/21/2014 141 Influenza 01/17/2016 sanofi pasteur PMC Fluzone High-Dose [id number] Intramuscular Left Deltoid 01/17/2016 12/09/2014 141 Influenza 02/13/2017 sanofi pasteur PMC Fluzone [id number] Intramuscular Left Deltoid 02/13/2017 12/09/2014 135 History [...] occult blood test Jun 19 2017 9:46AM Payers Insurance Name Company Name Plan Name Plan Number Policy Number Policy Group Number Start Date Humana Humana Claims Center [id number] N/A Medicare Part B Medicare Of [place] [id number] N/A Medicare Part A Medicare - Lab/Xray [id number] Thursday, July 03, 2008 [place] Financial Assistance [employer] [place] 25 Percent Tuesday, May 05, 2015 Medicare Part A Medicare Part A [id number] Thursday, July 03, 2008 History of Encounters Visit Date Visit Type Provider 06/19/[address] Margarita Wells DO 02/13/[address] Margarita Wells DO 10/08/[address] Margarita Wells DO 09/11/[address] Margarita Wells DO 06/19/2016 Office visit 06/19/[address] Margarita Wells DO 05/22/[address] Margarita Wells DO 03/21/2016 Office visit Georgette Hernández GUEST ROOM INSPECTOR 01/17/[address] Margarita Wells DO [...]
--- OUTSIDE RECORDS SUMMARY | 2018-01-15 08:18 | XMS REPORT ---
Author Margarita Irby [facility] Address [address] [place], [place] [address] Care Team Providers Care Form Builder Helper Name Role Phone Margarita Wells PCP Allergies and Adverse Reactions Name Reaction Notes PENICILLINS SULFA (SULFONAMIDES) Plan of Treatment Planned Activity Comments Planned Date Planned Time Plan/Goal US EXAM ABDOM COMPLETE 03/28/2015 12:[address] ANGIO ABD&PELV W/O&W/DYE 03/28/2015 12:00 AM Medications Active Name Start Date Estimated Completion Date SIG Comments baclofen 20 mg oral tablet take 1 tablet (20 mg) by oral route 4 times per day for 30 days Centrum Silver 400-250 mcg oral tablet,chewable chew 1 tablet by oral route daily Anti-Diarrheal (kvng)-Anti-Gas 2-125 mg oral tablet take 1 tablet by oral route 2 times a day Combivent Respimat 20-100 mcg/actuation inhalation mist inhale 1 puff by inhalation route 4 times per day ; may take additional puffs as needed not to exceed 6 puffs in 24hrs cimetidine 800 mg oral tablet take 1 tablet (800 mg) by oral route 2 times per day omeprazole 20 mg oral tablet,delayed release (DR/EC) take 1 tablet by oral route daily Symbicort 160-4.5 mcg/actuation inhalation HFA aerosol inhaler inhale 2 puffs by inhalation route 2 times per day in the morning and evening simvastatin 80 mg oral tablet take 1 tablet by oral route daily Move Free Ultra 40-10-3.3 mg oral tablet take 1 tablet by oral route daily ProAir HFA 90 mcg/actuation inhalation HFA aerosol inhaler inhale 2 puffs (180 mcg) by inhalation route every 4 hours hydrocodone-acetaminophen 5-325 mg oral tablet 03/29/2015 04/12/2015 take 1 tablet by oral route every 8 hours for 14 days Name Start Date Expiration Date SIG Comments azithromycin 250 mg oral tablet 03/29/2015 04/03/2015 take 2 tablets (500 mg ) by oral route once daily for 1 day then 1 tablet (250 mg) by oral route once daily for 4 days prednisone 10 mg oral tablet 03/29/2015 04/05/2015 take 1 tablet (10 mg) by oral route once daily in the morning for 7 days Discontinued Name Start Date Discontinued Date SIG Comments naproxen 500 mg oral tablet 03/28/2015 furosemide 20 mg oral tablet 03/28/2015 take 1 tablet (20 mg) by oral route once daily Problem List Not available. Vital Signs Date Time BP-Sys(mm[Hg] BP-Lucy(mm[Hg]) HR(bpm) RR(rpm) Temp WT HT HC BMI BSA BMI Percentile O2 Sat(%) 04/05/2015 3:18:00 PM 130 mmHg 72 mmHg 106 bpm 22 rpm 98.2 F 141 lbs 70 in 20.23 kg/m2 1.78 m2 91 % 03/28/2015 2:56:00 PM 130 mmHg 82 mmHg 109 bpm 22 rpm 97.6 F 150 lbs 70 in 21.5225 kg/m 1.8331 m 93 % Social History Not available. History of Procedures Date Ordered Description Order [...] Consult/Referral Reviewed 04/05/2015 12:00 AM Consult/Referral Reviewed Results Summary Data and Description Results 03/28/2015 3:58 PM AMYLASE 78 IU/LLIPASE 12.0 U/LGLUCOSE 69.0 mg/dLSODIUM 144.0 mmol/LPOTASSIUM 3.60 mmol/LCHLORIDE 96.0 mmol/LCO2 36.0 mmol/LBUN 10.0 mg/ dLCREATININE 1.10 mg/dLSGOT/AST 43.0 IU/LSGPT/ALT 41.0 IU/LALK PHOS 93.0 IU/ LTOTAL PROTEIN 8.20 g/dLALBUMIN 4.70 g/dLTOTAL BILI 0.50 mg/dLCALCIUM 10.20 mg/ dLeGFR >60 mL/min/1.73mTSH 0.750 uIU/mL 03/29/2015 1:19 PM C DIFFICILE NAAT TNP-FORMED STOOL History Of Immunizations Not available. History of Past Illness Name Date of Onset Comments GERD (gastroesophageal reflux disease) Hyperlipemia Chronic back pain Chronic Obstructive Pulmonary Disease Right upper quadrant pain Mar 28 2015 [...] 10:01AM Weight loss Apr 06 2015 10:01AM Payers Insurance Name Company Name Plan Name Plan Number Policy Number Policy Group Number Start Date Medicare Part A Medicare Part A [id number] Thursday, 2008 [facility] Human Claims Center [id number] N/A History of Encounters Visit Date Visit Type Provider 04/05/[address] Margarita Wells DO 03/28/[address] Margarita Wells DO
--- OUTSIDE RECORDS SUMMARY | 2018-01-15 08:18 | XMS REPORT ---
Author Author Georgette Hernández [facility] Address [address] [place], [place] [address] Care Team Providers Care Flame Hardening Machine Operator Name Role Phone Georgette Hernández PCP Unavailable Margarita Wells PreferredProvider Allergies and Adverse Reactions [...] 08/14/2016 1 capsule, BID for 30 days ProAir HFA 90 mcg/actuation [...] the morning and evening for 30 days doxycycline monohydrate 100 mg oral tablet 03/21/2016 take 1 tablet by oral route 2 times a day prednisone 20 mg oral tablet 03/21/2016 take 3 tablets daily x2, then 2 tablets daily x2, then 1 tablet daily x4 albuterol sulfate 2.5 mg /3 mL (0.083 %) inhalation solution for nebulization 03/21/2016 inhale 3 milliliters (2.5 mg) by nebulization route 4 times per day Name Start Date Expiration Date SIG Comments [...] 30 days hydrocodone-acetaminophen 5-325 mg oral tablet 01/17/2016 02/16/2016 take 1 tablet by oral route every 4-6 hours as needed for pain for 30 days Discontinued Name Start Date [...] same time each day for 30 days Problem List Description Status Onset Chronic back pain Active Chronic Obstructive Pulmonary Disease Active GERD (gastroesophageal reflux disease) Active Hyperlipemia Active Nocturia Active 05/08/2015 Bladder outlet obstruction Active 05/08/2015 Benign enlargement of prostate Active 05/08/2015 Vital Signs Date Time BP-Sys(mm[Hg] BP-Lucy(mm[Hg]) HR(bpm) RR(rpm) Temp WT HT HC BMI BSA BMI Percentile O2 Sat(%) 03/21/2016 10:23:00 AM 132 mmHg 66 mmHg [...] Vis Given Vis Pub CVX Pneumococcal 04/19/2015 Fyycb-Kqwgdr-Xndzuud-Praxis WAL Prevnar 13 [id number] Intramuscular Left Deltoid 04/19/2015 07/01/2012 133 X 04/19/2015 Vlwjt-Yepicr-Edklylk-Praxis WAL Prevnar 13 [id number] Intramuscular Left Deltoid 04/19/2015 07/01/2012 133 Influenza 04/19/2015 sanofi pasteur [facility] Fluarix Quadrivalent [id number] Intramuscular Right Deltoid 04/19/2015 12/21/2014 141 Influenza 01/17/2016 sanofi pasteur PMC Fluzone High-Dose [id number] Intramuscular Left Deltoid 01/17/2016 12/09/2014 141 History [...] acute exacerbation Mar 21 2016 10: 25AM Payers Insurance Name Company Name Plan Name Plan Number Policy Number Policy Group Number Start Date Humana Humana Claims Center [id number] N/A [facility] Financial Assistance [facility] Financial [place] 25 Percent Tuesday, May 05, 2015 Medicare Part A Medicare Part A [id number] Thursday, July 03, 2008 Medicare Part B Medicare Of [place] [id number] N/A Medicare Part A Medicare - Lab/Xray [id number] Thursday, July 03, 2008 History of Encounters Visit Date Visit Type Provider 03/21/2016 Office visit Georgette Hernández CLAY MODELER 01/17/[address] Margarita Wells DO 10/12/[address] Margarita Wells DO 09/12/[address] Margarita Wells DO 08/10/[address] Margarita Wells DO 07/11/[address] Margarita Wells DO 06/07/[address] Margarita Wells DO 05/10/[address] Margarita Wells DO 05/08/2015 Office visit Kathy Batista MD 04/28/2015 [facility] Román Wells MD 04/19/[address] Margarita Wells DO 04/11/[address] Margarita Wells DO 04/06/2015 Office visit Kathy Batista MD 04/05/[address] Margarita Wells DO 04/02/2015 [facility] Padmini Barber MD 03/28/[address] Margarita Wells DO 03/22/2015 [facility] Padmini Barber MD
--- OUTSIDE RECORDS SUMMARY | 2018-01-15 08:19 | XMS REPORT ---
Author Author Margarita Wells [facility] Address [address] [place], [place] [id number] Care Team Providers Care Commonwealth Attorney Name Role Phone Margarita Wells PCP Margarita [...] BY NEBULIZATION ROUTE 4 TIMES PER DAY aspirin 81 mg oral tablet,chewable 11/13/2016 CHEW [...] DAILY IN THE EVENING FOR 30 DAYS omeprazole 20 mg oral capsule,delayed release(DR/EC) 05/12/2017 11/08/2017 TAKE 1 CAPSULE BY MOUTH TWICE DAILY Dona Bo 100-62.5-25 mcg inhalation blister with device 07/17/2017 inhale 1 puff by inhalation route once daily at the same time each day for 30 days Name Start Date Expiration [...] oral route once daily for 30 days mirtazapine 15 mg oral tablet 03/05/2017 07/03/2017 TAKE 1 TABLET BY MOUTH EVERY NIGHT AT BEDTIME pravastatin 40 mg oral tablet 05/06/2017 08/04/2017 TAKE 1 TABLET(40 MG) BY MOUTH EVERY EVENING Discontinued Name Start Date Discontinued Date SIG [...] HC BMI BSA BMI Percentile O2 Sat(%) 09/24/2017 10:40:00 AM 184 mmHg 84 mmHg [...] OCCULT BLOOD FECES Reviewed 02/13/2017 12:00 AM [facility] MEDICARE - flu vaccine administration Reviewed 02/13/2017 [...] Vis Given Vis Pub CVX Pneumococcal 04/19/2015 Vkjti-Etdvgl-Rrutrcr-Praxis WAL PREVNAR 13 [id number] Intramuscular Left Deltoid 04/19/2015 07/01/2012 133 X 04/19/2015 Hgptz-Wobphx-Emxlwdp-Praxis WAL PREVNAR 13 [id number] Intramuscular Left Deltoid 04/19/2015 07/01/2012 133 Influenza 04/19/2015 sanofi pasteur PMC Fluarix, quadrivalent, preservative free [id number] Intramuscular Right Deltoid 04/19/2015 12/21/2014 141 Influenza 01/17/2016 sanofi pasteur PMC FLUZONE-HIGH DOSE [id number] Intramuscular Left Deltoid 01/17/2016 12/09/2014 141 Influenza 02/13/2017 sanofi pasteur PMC FLUZONE [id number] Intramuscular Left Deltoid 02/13/2017 12/09/2014 135 History [...] Chronic bronchitis, unspecified chronic bronchitis type Feb 3 2015 9:57AM Frailty Feb 3 2015 9:57AM Tachycardia Feb 3 2015 9:57AM Spinal stenosis of lumbar region [...] test Jun 19 2017 9:46AM Pulmonary nodules Jun 27 2017 4:01PM COPD (chronic obstructive pulmonary disease) Jul 17 2017 9:46AM Lung nodule Jul 17 2017 9:46AM COPD exacerbation Sep 17 2017 9:51AM Shortness of breath Sep 17 2017 10:32AM Dyspnea Sep 17 2017 9:51AM COPD exacerbation Sep 24 2017 10:42AM Increased oxygen demand Sep 24 2017 10:42AM Payers Insurance Name Company Name Plan Name Plan Number Policy Number Policy Group Number Start Date Medicare RHC Medicare RHC [id number] N/A Cigna Medicare Supplement Cigna Medicare Supplement [id number] N/A Medicare Part A Medicare Part A [id number] Thursday, 2008 [employer] Hum[facility] Claims Center [id number] N/A Medicare Part B Medicare Of [place] [id number] N/A Medicare Part A Medicare - Lab/Xray [id number] Thursday, July 03, 2008 [employer] Financial Assistance [employer] [place] 25 Percent Tuesday, May 05, 2015 History of Encounters Visit Date Visit Type Provider 09/24/[address] Margarita Wells DO 09/17/[address] Margarita Wells DO [...] 05/08/2015 Office visit Kathy Batista MD 04/28/2015 [facility] Román Wells MD 04/19/[address] Margarita Wells DO 04/11/[address] Margarita Wells DO 04/06/2015 Office visit Kathy Batista MD 04/05/[address] Margarita Wells DO 04/02/2015 Hospital Padmini Barber MD 03/28/[address] Margarita Wells DO 03/22/2015 [facility] Padmini Barber MD
--- OUTSIDE RECORDS SUMMARY | 2018-01-15 08:20 | XMS REPORT ---
Author Margarita Irby [facility] Address [address] [place], [place] [id number] Care Team Providers Care Industrial Pharmacist Name Role Phone Margarita Wells PCP Allergies [...] chew 1 tablet by oral route daily metoprolol succinate 25 mg oral tablet extended release 24 hr 10/12/20152015 take 1 tablet by oral route daily for 30 days omeprazole 20 mg oral capsule,delayed release(/EC) 10/12/2015 12/11/2015 1 capsule, BID for 30 days Remeron 30 mg oral tablet 10/12/2015 01/10/2016 take 1 tablet (30 mg) by oral route once daily before bedtime for 30 days Singulair 10 mg oral tablet 10/12/2015 02/09/2016 take 1 tablet (10 mg) by oral route once daily in the evening for 30 days Singulair 10 mg oral tablet 11/09/2015 TAKE 1 TABLET (10 MG) BY ORAL ROUTE ONCE DAILY IN THE EVENING FOR 30 DAYS Symbicort 160-4.5 mcg/actuation inhalation HFA aerosol inhaler 11/22/2015 inhale 2 puffs by inhalation route 2 times per day in the morning and evening for 30 days ProAir HFA 90 mcg/actuation inhalation HFA aerosol inhaler 11/22/20152016 inhale 1 puff (90 mcg) by inhalation route every 4 hours as needed for 30 days Name Start Date Expiration [...] 201509/09/2015 take as directed for 30 days hydrocodone-acetaminophen 5-325 mg oral tablet 10/12/2015 11/11/2015 take 1 tablet by oral route Q12hrs as needed for pain 30 days Discontinued Name Start Date Discontinued [...] HC BMI BSA BMI Percentile O2 Sat(%) 10/12/2015 9:52:00 AM 110 mmHg 74 mmHg [...] 09/12/2015 12:00 AM COMPREHEN METABOLIC PANEL Returned Results Summary Data and Description Results [...] g/dLALBUMIN 4.80 g/dLTOTAL BILI 0.30 mg/dLCALCIUM 10.30 mg/dLeGFR >60 mL/min/1.73m History Of Immunizations Name Date Admin Mfg Name Mfg Code Trade Name Lot# Route Inj Vis Given Vis Pub CVX PCV 04/19/2015 Dqydn-Cqmupp-Arcyzwa-Praxis WAL Prevnar 13 [id number] Intramuscular Left Deltoid 04/19/2015 07/01/2012 133 X 04/19/2015 Tzfww-Xwcezt-Yzbmzwz-Praxis WAL Prevnar 13 [id number] Intramuscular Left Deltoid 04/19/2015 07/01/2012 133 Influenza [...] chronic bronchitis type Feb 2015 9:57AM Frailty Feb 3 2015 9:57AM Tachycardia b 2015 9:57AM Spinal [...] Chronic back pain Oct 12 2015 9:56AM Payers Insurance Name Company Name Plan Name Plan Number Policy Number Policy Group Number Start Date Humana Humana Claims Center [id number] N/A [facility] Financial Assistance [facility] [employer] [place] 25 Percent Tuesday, May 05, 2015 Medicare Part A Medicare Part A [id number] Thursday, July 03, 2008 Medicare Part B Medicare Of [place] [id number] N/A Medicare Part A Medicare - Lab/Xray [id number] Thursday, July 03, 2008 History of Encounters Visit Date Visit Type Provider 10/12/[address] Margarita Wells DO 09/12/[address] Margarita Wells DO 08/10/[address] Margarita Wells DO 07/11/[address] Margarita Wells DO 06/07/[address] Margarita Wells DO 05/10/[address] Margarita Wells DO 05/08/2015 Office visit Kathy Batista MD 04/28/2015 [facility] Román Wells MD 04/19/[address] Margarita Wells DO 04/11/[address] Margraita Wells DO 04/06/2015 Office visit Kathy Batista MD 04/05/[address] Margarita Wells DO 04/02/2015 [facility] Padmini Barber MD 03/28/[address] Margarita Wells DO 03/22/2015 [facility] Padmini Barber MD
--- OUTSIDE RECORDS SUMMARY | 2018-01-15 08:20 | XMS REPORT ---
Author Margarita Irby [facility] Address [address] [place], [place] [address] Care Team Providers Care Escort Blind Name Role Phone Margarita Wells PCP Allergies and Adverse Reactions Name Reaction Notes PENICILLINS SULFA (SULFONAMIDES) Plan of Treatment Planned Activity Comments Planned Date Planned Time Plan/Goal FECES CULTURE AEROBIC BACT 03/28/2015 12:00 AM GIARDIA AG EIA 03/28/2015 12:00 AM CLOSTRIDIUM AG EIA 03/28/2015 12:00 AM US EXAM ABDOM COMPLETE 03/28/2015 12:00 AM Medications Active Name Start [...] HC BMI BSA BMI Percentile O2 Sat(%) 03/28/2015 2:56:00 PM 130 mmHg 82 mmHg 109 bpm 22 rpm 97.6 F 150 lbs 70 in 21.52 kg/m2 1.83 m2 93 % Social History Not available. History of Procedures Date Ordered Description Order Status 03/28/2015 12:00 AM COMPREHEN METABOLIC PANEL Returned 03/28/2015 12:00 AM ASSAY THYROID STIM HORMONE Returned 03/28/2015 12:00 AM ASSAY OF LIPASE Returned 03/28/2015 12:00 AM ASSAY OF AMYLASE Returned Results Summary Data and Description Results 03/28/2015 3:58 PM AMYLASE 78 IU/LLIPASE 12.0 U/L History Of Immunizations Not available. History of [...] 3:23PM Tobacco abuse Mar 28 2015 3:23PM Payers Insurance Name Company Name Plan Name Plan Number Policy Number Policy Group Number Start Date Medicare Part A Medicare Part A [id number] Thursday, 2008 History of Encounters Visit Date Visit Type Provider 03/28/[address] Margarita Wells DO
--- OUTSIDE RECORDS SUMMARY | 2018-01-15 08:20 | XMS REPORT ---
Author Margarita Irby [facility] Address [address] [place], [place] [phone] Care Team Providers Care Plaster Block Layer Name Role Phone Margarita Wells PCP Allergies [...] route every 8 hours for 14 days prednisone 10 mg oral tablet 03/29/2015 04/05/2015 take 1 tablet (10 mg) by oral route once daily in the morning for 7 days Name Start Date Expiration Date SIG Comments azithromycin 250 mg oral tablet 03/29/2015 04/03/2015 take 2 tablets (500 mg ) by oral route once daily for 1 day then 1 tablet (250 mg) by oral route once daily for 4 days Discontinued Name Start Date Discontinued Date [...] AMYLASE Returned 03/28/2015 12:00 AM Consult/Referral Reviewed Results Summary Data [...] Date Medicare Part A Medicare Part A [id number] Thursday, [address] [facility] [employer] Claims Center [id number] N/A History of Encounters Visit Date Visit Type Provider 03/28/[address] Margarita Wells DO
--- OUTSIDE RECORDS SUMMARY | 2018-01-15 08:20 | XMS REPORT ---
Author Author Kathy Batista Organization [facility] Address [address] [place], [place] [phone] Care Team Providers Care Bonded Strand Operator Name Role Phone Kathy Batista PCP Unavailable Allergies and Adverse Reactions Name Reaction Notes PENICILLINS SULFA (SULFONAMIDES) Plan of Treatment Planned Activity Comments Planned Date Planned Time Plan/Goal US EXAM ABDOM COMPLETE 03/28/2015 12:[address] ABD & PELV W/CONTRAST 03/28/2015 12:00 AM dysphagia and routine colon cancer [...] HC BMI BSA BMI Percentile O2 Sat(%) 04/06/2015 11:53:00 AM 141 lbs 70 in [...] Date Medicare Part A Medicare Part A [id number] Thursday, 2008 [facility] [employer] Claims Center [id number] N/A Medicare Part B Medicare Of [place] [id number] N/A History of Encounters Visit Date Visit Type Provider 04/06/2015 Office visit Kathy Batista MD 04/05/[address] Margarita Wells DO 03/28/[address] Margarita Wells DO
--- OUTSIDE RECORDS SUMMARY | 2018-01-15 08:21 | XMS REPORT ---
Author Margarita Irby [facility] Address [address] [place], [place] [address] Care Team Providers Care Sole Seamer Name Role Phone Margarita Wells PCP Allergies [...] take 1 tablet by oral route daily omeprazole 20 mg oral capsule,delayed release(DR/EC) 04/19/2015 08/17/2015 1 capsule, BID for 30 days ProAir HFA 90 mcg/actuation inhalation HFA aerosol inhaler 04/19/20152015 inhale 1 puff (90 mcg) by inhalation route every 6 hours as needed for 30 days Vitamin D3 1,000 unit oral capsule 04/19/2015 05/19/2015 take 1 capsule by oral route daily for 30 days prednisone 20 mg oral tablet 04/19/2015 04/24/2015 take 1 tablet (20 mg) by oral route 2 times per day for 5 days Name Start Date Expiration [...] daily in the morning for 7 days furosemide 20 mg oral tablet 04/19/2015 04/22/2015 take 1 tablet (20 mg) by oral route once daily for 3 days Discontinued Name Start Date Discontinued Date [...] by oral route once daily at bedtime Problem List Description Status Onset Chronic back pain Active Chronic Obstructive Pulmonary Disease Active GERD (gastroesophageal reflux disease) Active Hyperlipemia Active Vital Signs Date Time BP-Sys(mm[Hg] BP-Lucy(mm[Hg]) HR(bpm) RR(rpm) Temp WT HT HC BMI BSA BMI Percentile O2 Sat(%) 04/19/2015 10:47:00 AM 140 mmHg 88 mmHg [...] VACCINE QUADRIVALENT 3 YRS PLUS IM Reviewed Results Summary [...] DIFFICILE NAAT TNP-FORMED STOOL History Of Immunizations Name Date Admin Mfg Name Mfg Code Trade Name Lot# Route Inj Vis Given Vis Pub CVX PCV 04/19/2015 Hbsgf-Whyzke-Ntfnuvo-Praxis WAL Prevnar 13 [id number] Intramuscular Left Deltoid 04/19/2015 07/01/2012 133 Pneumococcal 04/19/2015 Jgfxh-Ysnyaz-Ctvfszc-Praxis WAL Prevnar 13 [id number] Intramuscular Left Deltoid 04/19/2015 07/01/2012 133 Influenza 04/19/2015 [facility] PMC Fluarix Quadrivalent [id number] Intramuscular Right Deltoid [...] 2:38PM Pneumonia vaccine Apr 19 2015 2:38PM Payers Insurance Name Company Name Plan Name Plan Number Policy Number Policy Group Number Start Date Humana Humana Claims Center [id number] N/A Medicare Part B Medicare Of [place] [id number] N/A Medicare Part A Medicare Part A [id number] Thursday, 2008 History of Encounters Visit Date Visit Type Provider 04/19/[address] Margarita Wells DO 04/11/[address] Margarita Wells DO 04/06/2015 Office visit Kathy Batista MD 04/05/[address] Margarita Wells DO 03/28/[address] Margarita Wells DO
--- OUTSIDE RECORDS SUMMARY | 2018-01-15 08:21 | XMS REPORT ---
Author Margarita Irby [facility] Address [address] [place], [place] [address] Care Team Providers Care Full Charge Bookkeeper Name Role Phone Margarita Wells PCP Allergies [...] 6 puffs in 24hrs for 30 days Singulair 10 mg oral [...] mg oral tablet extended release 24 hr 08/30/20152015 take 1 tablet by oral route daily for 30 days Remeron 30 mg oral tablet 08/30/2015 11/28/2015 take 1 tablet (30 mg) by oral route once daily before bedtime for 30 days hydrocodone-acetaminophen 5-325 mg oral tablet 08/30/2015 09/29/2015 take 1 tablet by oral route every 8 hours as needed for 30 days Name [...] Vis Given Vis Pub CVX PCV 04/19/2015 Mexfi-Mwwsme-Qbhgtji-Praxis WAL Prevnar 13 [id number] Intramuscular Left Deltoid 04/19/2015 07/01/2012 133 X 04/19/2015 Elntx-Yhcgwx-Mflcmky-Praxis WAL Prevnar 13 [id number] Intramuscular Left Deltoid 04/19/2015 07/01/2012 133 Influenza [...] Number Start Date Humana Humana Claims Center [id number] N/A Medicare Part B Medicare Of [place] [id number] N/A Medicare Part A Medicare - Lab/Xray [id number] Thursday, July 03, 2008 Medicare Part A Medicare Part A [id number] Thursday, July 03, 2008 History of Encounters Visit Date Visit Type Provider 08/10/[address] Margarita Wells DO 07/11/[address] Margarita Wells DO 06/07/[address] Margarita Wells DO 05/10/[address] Margarita Wells DO 05/08/2015 Office visit Kathy Batista MD 04/28/2015 [facility] Román Wells MD 04/19/[address] Margarita Wells DO 04/11/[address] Margarita Wells DO 04/06/2015 Office visit Kathy Batista MD 04/05/[address] Margarita Wells DO 04/02/2015 [facility] Padmini Barber MD 03/28/[address] Margarita Wells DO 03/22/2015 [facility] Padmini Barber MD
--- OUTSIDE RECORDS SUMMARY | 2018-01-15 08:22 | XMS REPORT ---
Author Margarita Irby [facility] Address [address] [place], [place] [address] Care Team Providers Care Loom Doffer Name Role Phone Margarita Wells PCP Margarita [...] 1 CAPSULE BY MOUTH TWICE DAILY Dona Ellipta 100-62.5-25 mcg inhalation blister with device [...] OCCULT BLOOD FECES Reviewed 02/13/2017 12:00 AM [facility] MEDICARE - flu vaccine administration Reviewed 02/13/2017 12:00 AM INFLUENZA VACCINE SPLT PRSRV FREE INC ANTIGEN IM Reviewed 06/10/2017 12:[address] THORAX W/DYE Returned Results Summary Date and Description Results [...] Vis Given Vis Pub CVX Pneumococcal 04/19/2015 Waedu-Cdbwvr-Yqgywxx-Praxis WAL Prevnar 13 [id number] Intramuscular Left Deltoid 04/19/2015 07/01/2012 133 X 04/19/2015 Mrlhv-Jmzoai-Lryairc-Praxis WAL Prevnar 13 [id number] Intramuscular Left Deltoid 04/19/2015 07/01/2012 133 Influenza 04/19/2015 sanofi pasteur PMC Fluarix Quadrivalent [id number] Intramuscular Right Deltoid 04/19/2015 12/21/2014 141 Influenza 01/17/2016 sanofi pasteur PMC Fluzone High-Dose [id number] Intramuscular Left Deltoid 01/17/2016 12/09/2014 141 Influenza 02/13/2017 sanofi pasteur PMC Fluzone [id number] Intramuscular Left Deltoid 02/13/2017 12/09/2014 135 History [...] 9:46AM Pulmonary nodules Jun 27 2017 4:01PM Payers Insurance Name Company Name Plan Name Plan Number Policy Number Policy Group Number Start Date Humana Humana Claims Center [id number] N/A Medicare Part B Medicare Of [place] [id number] N/A Medicare Part A Medicare - Lab/Xray [id number] Thursday, July 03, 2008 [employer] [place] 25 Percent Tuesday, May 05, 2015 Medicare Part A Medicare Part A [id number] Thursday, July 03, 2008 History of Encounters [...] 05/08/2015 Office visit Kathy Batista MD 04/28/2015 [facility] Román Wells MD 04/19/[address] Margarita Wells DO 04/11/[address] Margarita Wells DO 04/06/2015 Office visit Kathy Batista MD 04/05/[address] Margarita Wells DO 04/02/2015 [facility] Padmini Barber MD 03/28/[address] Margarita Wells DO 03/22/2015 [facility] Padmini Barber MD
--- OUTSIDE RECORDS SUMMARY | 2018-01-15 08:22 | XMS REPORT ---
Author Margarita Irby [facility] Address [address] [place], [place] [phone] Care Team Providers Care State Inspector Name Role Phone Margarita Wells PCP Allergies [...] 08/17/2015 1 capsule, BID for 30 days Vitamin D3 1,000 unit oral capsule 04/19/2015 05/19/2015 take 1 capsule by oral route daily for 30 days Remeron 15 mg oral tablet 05/10/2015 06/09/2015 take 1 tablet (15 mg) by oral route once daily before bedtime for 30 days Cardizem 30 mg oral tablet 05/10/2015 09/07/2015 take 1 tablet (30 mg) by oral route 2 times per day for 30 days Combivent Respimat 20-100 mcg/actuation inhalation mist 05/10/2015 09/07/2015 inhale 1 puff by inhalation route 4 times per day ; may take additional puffs as needed not to exceed 6 puffs in 24hrs for 30 days Name Start Date Expiration [...] daily in the morning for 7 days prednisone 20 mg oral tablet 04/19/2015 [...] 6 hours as needed for 30 days Problem List Description Status Onset Chronic back pain Active Chronic Obstructive Pulmonary Disease Active GERD (gastroesophageal reflux disease) Active Hyperlipemia Active Nocturia Active 05/08/2015 Bladder outlet obstruction Active 05/08/2015 Benign enlargement of prostate Active 05/08/2015 Vital Signs Date Time BP-Sys(mm[Hg] BP-Lucy(mm[Hg]) HR(bpm) RR(rpm) Temp WT HT HC BMI BSA BMI Percentile O2 Sat(%) 05/10/2015 1:26:00 PM 110 mmHg 60 mmHg [...] Vis Given Vis Pub CVX PCV 04/19/2015 Celvi-Drtpym-Zuwzaii-Praxis WAL Prevnar 13 [id number] Intramuscular Left Deltoid 04/19/2015 07/01/2012 133 Pneumococcal 04/19/2015 Evuwf-Heehxv-Vrmbtwf-Praxis WAL Prevnar 13 [id number] Intramuscular Left Deltoid 04/19/2015 07/01/2012 133 Influenza [...] chronic bronchitis type May 10 2015 1:33PM Payers Insurance Name Company Name Plan Name Plan Number Policy Number Policy Group Number Start Date Humana Humana Claims Center [id number] N/A Medicare Part B Medicare Of [place] [id number] N/A Medicare Part A Medicare Part A [id number] Thursday, 2008 History of Encounters Visit Date Visit Type Provider 05/10/[address] Margarita Wells DO 05/08/2015 Office visit V S. Lester MD 04/19/[address] Margarita Wells DO 04/11/[address] Margarita Wells DO 04/06/2015 Office visit Kathy Batista MD 04/05/[address] Margarita Wells DO 03/28/[address] Margarita Wells DO 03/22/2015 [facility] Padmini Barber MD
--- OUTSIDE RECORDS SUMMARY | 2018-01-15 08:23 | XMS REPORT ---
Author Margarita Irby [facility] Address [address] [place], [place] [address] Care Team Providers Care Gis Consultant Name Role Phone Margarita Wells PCP Margarita [...] Vis Given Vis Pub CVX Pneumococcal 04/19/2015 Ckkqc-Ybwyyf-Pavbfht-Praxis WAL Prevnar 13 [id number] Intramuscular Left Deltoid 04/19/2015 07/01/2012 133 X 04/19/2015 Lggdu-Tiukdc-Exrxido-Praxis WAL Prevnar 13 [id number] Intramuscular Left Deltoid 04/19/2015 07/01/2012 133 Influenza 04/19/2015 sanofi pasteur PMC Fluarix Quadrivalent [id number] Intramuscular Right Deltoid 04/19/2015 12/21/2014 141 Influenza 01/17/2016 sanofi pasteur PMC Fluzone High-Dose [id number] Intramuscular Left Deltoid 01/17/2016 12/09/2014 141 Influenza 02/13/2017 sanofi pasteur PMC Fluzone [id number] Intramuscular Left Deltoid 02/13/2017 12/09/2014 135 History [...] Number Start Date Humana Humana Claims Center [id number] N/A Medicare Part B Medicare Of [place] [id number] N/A Medicare Part A Medicare - Lab/Xray [id number] Thursday, July 03, 2008 [employer] Financial Assistance [employer] [place] 25 Percent Tuesday, May 05, 2015 Medicare Part A Medicare Part A [id number] Thursday, July 03, 2008 History of Encounters Visit Date Visit Type Provider 06/19/[address] Margarita Wells DO 02/13/[address] Margarita Wells DO 10/08/[address] Margarita Wells DO 09/11/[address] Margarita Wells DO 06/19/2016 Office visit 06/19/[address] Margarita Wells DO 05/22/[address] Margarita Wells DO 03/21/2016 Office visit Georgette Hernández CONCRETE ANALYST 01/17/[address] Margarita Wells DO 10/12/[address] Margarita Wells DO 09/12/[address] Margarita Wells DO 08/10/[address] Margarita Wells DO 07/11/[address] Margarita Wells DO 06/07/[address] Margarita Wells DO 05/10/[address] Margarita Wells DO 05/08/2015 Office visit Kathy Batista MD 04/28/2015 [facility] Román Wells MD 04/19/[address] Margarita Wells DO 04/11/[address] Margarita Wells DO 04/06/2015 Office visit Kathy Batista MD 04/05/[address] Margarita Wells DO 04/02/2015 [facility] Padmini Barber MD 03/28/[address] Margarita Wells DO 03/22/2015 [facility] Padmini Barber MD
--- OUTSIDE RECORDS SUMMARY | 2018-01-15 08:23 | XMS REPORT ---
Author Margarita Irby [facility] Address [address] [place], [place] [address] Care Team Providers Care Institutional Custodian Name Role Phone Margarita Wells PCP Allergies [...] Vis Given Vis Pub CVX PCV 04/19/2015 Pzhmi-Nwzxhf-Zmsnjih-Praxis WAL Prevnar 13 [id number] Intramuscular Left Deltoid 04/19/2015 07/01/2012 133 Pneumococcal 04/19/2015 Tvdly-Uzxkdp-Rvnrvks-Praxis WAL Prevnar 13 [id number] Intramuscular Left Deltoid 04/19/2015 07/01/2012 133 Influenza [...] Number Start Date Humana Humana Claims Center [id number] N/A Medicare Part B Medicare Of [place] [id number] N/A Medicare Part A Medicare Part A [id number] Thursday, 2008 History of Encounters Visit Date Visit Type Provider 05/10/[address] Margarita Wells DO 05/08/2015 Office visit V S. Lester MD 04/19/[address] Margarita Wells DO 04/11/[address] Margarita Wells DO 04/06/2015 Office visit Kathy Batista MD 04/05/[address] Margarita Wells DO 03/28/[address] Margarita Wells DO 03/22/2015 [facility] Padmini Barber MD
--- OUTSIDE RECORDS SUMMARY | 2018-01-15 08:24 | XMS REPORT ---
Author Author Kathy Batista Organization [facility] Address [address] [place], [place] [id number] Care Team Providers Care Poker Prop Player Name Role Phone Kathy Batista PCP Unavailable Allergies and Adverse Reactions Name Reaction Notes PENICILLINS SULFA (SULFONAMIDES) Plan of Treatment Planned Activity Comments Planned Date Planned Time Plan/Goal US EXAM ABDOM COMPLETE 03/28/2015 12:[address] ABD & PELV W/CONTRAST 03/28/2015 12:00 AM MRI LUMBAR SPINE W/O DYE 04/07/2015 12:00 AM dysphagia and routine colon cancer [...] Progressive neurological deficit Apr 07 2015 12:30PM Payers Insurance Name Company Name Plan Name Plan Number Policy Number Policy Group Number Start Date Medicare Part A Medicare Part A [id number] Thursday, 2008 [facility] [id number] N/A Medicare Part B Medicare Of [place] [id number] N/A History of Encounters Visit Date Visit Type Provider 04/06/2015 Office visit Kathy Batista MD 04/05/[address] Margarita Wells DO 03/28/[address] Margarita Wells DO
--- OUTSIDE RECORDS SUMMARY | 2018-01-15 08:24 | XMS REPORT ---
Author Margarita Irby [facility] Address [address] [place], [place] [id number] Care Team Providers Care Stud Driver Name Role Phone Margarita Wells PCP Allergies [...] lower back pain Apr 05 2015 3:23PM Payers Insurance Name Company Name Plan Name Plan Number Policy Number Policy Group Number Start Date Medicare Part A Medicare Part A [id number] Thursday, 2008 [facility] Claims Center [id number] N/A History of Encounters Visit Date Visit Type Provider 04/05/[address] Margarita Wells DO 03/28/[address] Margarita Wells DO
--- OUTSIDE RECORDS SUMMARY | 2018-01-15 08:25 | XMS REPORT ---
Author Margarita Irby [facility] Address [address] [place], [place] [phone] Care Team Providers Care Business Machine Operator Name Role Phone Margarita Wells PCP Allergies and Adverse Reactions Name Reaction Notes PENICILLINS SULFA (SULFONAMIDES) Plan of Treatment Planned Activity Comments Planned Date Planned Time Plan/Goal FECES CULTURE AEROBIC BACT 03/28/2015 12:00 AM US EXAM ABDOM COMPLETE [...] Ordered Description Order Status 03/28/2015 12:00 AM [facility] EIA Returned [...] 10.20 mg/ dLeGFR >60 mL/min/1.73mTSH 0.750 uIU/mL History Of Immunizations Not available. History of [...] Date Medicare Part A Medicare Part A [id number] Thursday, 2008 History of Encounters Visit Date Visit Type Provider 03/28/[address] Margarita Wells DO
--- OUTSIDE RECORDS SUMMARY | 2018-01-15 08:25 | XMS REPORT ---
Author Margarita Irby [facility] Address [address] [place], [place] [id number] Care Team Providers Care Breast Surgeon Name Role Phone Margarita Wells PCP Margarita Wells PreferredProvider Allergies and Adverse Reactions Name Reaction Notes PENICILLINS Syncope SULFA (SULFONAMIDES) rash Plan of Treatment Planned Activity Comments Planned Date Planned Time Plan/Goal dysphagia and routine colon cancer screening 04/11/2015 10:15 AM PFT 12/03/2016 12:00 AM CMP 06/10/2017 12:00 AM CBC for General Health Panel 06/10/2017 12:00 AM LIPID PANEL 06/10/2017 12:00 AM ECHO 2D Complete - Adult 09/17/2017 12:00 AM Arterial blood gas measurement 09/17/2017 12:00 AM Medications Active Name Start Date [...] HC BMI BSA BMI Percentile O2 Sat(%) 09/17/2017 9:46:00 AM 198 mmHg 96 mmHg 89 bpm 19 rpm 98.1 F 143.125 lbs 70 in 20.5361 kg/m 1.7906 m 91 % 07/17/2017 9:43:00 AM 172 mmHg 82 mmHg 111 bpm 18 rpm 96.2 F 143.125 lbs 70 in 20.54 kg/m2 1.79 m2 92 % 06/19/2017 9:44:00 AM 140 mmHg 84 mmHg 102 bpm 24 rpm 97.6 F 142 lbs 70 in 20.3747 kg/m 1.7836 m 90 % 02/13/2017 10:21:00 AM 138 mmHg [...] OCCULT BLOOD FECES Reviewed 02/13/2017 12:00 AM [facility] MEDICARE - flu vaccine administration Reviewed 02/13/2017 [...] Vis Given Vis Pub CVX Pneumococcal 04/19/2015 Evycp-Dcsjiy-Kgcmwsc-Praxis WAL PREVNAR 13 [id number] Intramuscular Left Deltoid 04/19/2015 07/01/2012 133 X 04/19/2015 Yprdd-Uimzhd-Joyielm-Praxis WAL PREVNAR 13 [id number] Intramuscular Left Deltoid 04/19/2015 07/01/2012 133 Influenza 04/19/2015 sanofi pasteur PMC Fluarix, quadrivalent, preservative free [id number] Intramuscular Right Deltoid 04/19/2015 12/21/2014 141 Influenza 01/17/2016 sanofi pasteur PMC FLUZONE-HIGH DOSE [id number] Intramuscular Left Deltoid 01/17/2016 12/09/2014 141 Influenza 02/13/2017 sanofi pasteur PMC FLUZONE [id number] Intramuscular Left Deltoid 02/13/2017 12/09/2014 135 History [...] 2017 10:32AM Dyspnea Sep 17 2017 9:51AM Payers Insurance Name Company Name Plan Name Plan Number Policy Number Policy Group Number Start Date Medicare RH Medicare RHC [id number] N/A Cigna Medicare Supplement Cigna Medicare Supplement [id number] N/A Medicare Part A Medicare Part A [id number] Thursday, 2008 Hum[facility] Hum[facility] Claims Center [id number] N/A Medicare Part B Medicare Of [place] [id number] N/A Medicare Part A Medicare - Lab/Xray [id number] Thursday, July 03, 2008 [employer] Financial Assistance [employer] [place] 25 Percent Tuesday, May 05, 2015 History of Encounters Visit Date Visit Type Provider 09/17/[address] Margarita Wells DO [...] 05/08/2015 Office visit Kathy Batista MD 04/28/2015 [facility] Román Wells MD 04/19/[address] Margarita Wells DO 04/11/[address] Margarita Wells DO 04/06/2015 Office visit Kathy Batista MD 04/05/[address] Margarita Wells DO 04/02/2015 [facility] Padmini Barber MD 03/28/[address] Margarita Wells DO 03/22/2015 [facility] Padmini Barber MD
--- OUTSIDE RECORDS SUMMARY | 2018-01-15 08:25 | XMS REPORT ---
Author Author Kathy Batista Organization [facility] Address [address] [place], [place] [phone] Care Team Providers Care Technical Recruiter Name Role Phone Kathy Batista PCP Unavailable [...] Date Medicare Part A Medicare Part A [id number] Thursday, 2008 [employer] Hum[employer] Claims Center [id number] N/A Medicare Part B Medicare Of [place] [id number] N/A History of Encounters Visit Date Visit Type Provider 04/06/2015 Office visit Kathy Batista MD 04/05/[address] Margarita Wells DO 03/28/[address] Margarita Wells DO
--- OUTSIDE RECORDS SUMMARY | 2018-01-15 08:26 | XMS REPORT ---
Author Margarita Irby [facility] Address [address] [place], [place] [phone] Care Team Providers Care Spring Intern Name Role Phone Margarita Wells PCP Margarita [...] DAILY FOR 30 DAYS FOR 30 DAYS pravastatin 40 mg oral tablet 12/31/2016 04/30/2017 TAKE 1 TABLET(40 MG) BY MOUTH EVERY EVENING omeprazole 20 mg oral capsule,delayed release(DR/EC) 01/31/2017 03/02/2017 TAKE 1 CAPSULE BY MOUTH TWICE DAILY Name Start Date Expiration Date SIG Comments [...] Vis Given Vis Pub CVX Pneumococcal 04/19/2015 Smuht-Lsiryd-Tfnayqb-Praxis WAL Prevnar 13 [id number] Intramuscular Left Deltoid 04/19/2015 07/01/2012 133 X 04/19/2015 Ekpkt-Pcmbjj-Mcbdudi-Praxis WAL Prevnar 13 [id number] Intramuscular Left Deltoid 04/19/2015 07/01/2012 133 Influenza 04/19/2015 sanofi pasteur PMC Fluarix Quadrivalent [id number] Intramuscular Right Deltoid 04/19/2015 12/21/2014 141 Influenza 01/17/2016 sanofi pasteur PMC Fluzone High-Dose [id number] Intramuscular Left Deltoid 01/17/2016 12/09/2014 141 History [...] Number Start Date Humana Humana Claims Center [id number] N/A Medicare Part B Medicare Of [place] [id number] N/A Medicare Part A Medicare - Lab/Xray [id number] Thursday, July 03, 2008 [employer] Financial Assistance [employer] Financial [place] 25 Percent Tuesday, May 05, 2015 Medicare Part A Medicare Part A [id number] Thursday, July 03, 2008 History of Encounters Visit Date Visit Type Provider 10/08/[address] Margarita Wells DO 09/11/[address] Margarita Wells DO 06/19/2016 Office visit 06/19/[address] Margarita Wells DO 05/22/[address] Margarita Wells DO 03/21/2016 Office visit Georgette Hernández BAR HOST/HOSTESS 01/17/[address] Margarita Wells DO 10/12/[address] Margarita Wells DO 09/12/[address] Margarita Wells DO 08/10/[address] Margarita Wells DO 07/11/[address] Margarita Wells DO 06/07/[address] Margarita Wells DO 05/10/[address] Margarita Wells DO 05/08/2015 Office visit Kathy Batista MD 04/28/2015 [facility] Román Wells MD 04/19/[address] Margarita Wells DO 04/11/[address] Margarita Wells DO 04/06/2015 Office visit Kathy Batista MD 04/05/[address] Margarita Wells DO 04/02/2015 [facility] Padmini Barber MD 03/28/[address] Margarita Wells DO 03/22/2015 [facility] Padmini Barber MD
--- OUTSIDE RECORDS SUMMARY | 2018-01-15 08:26 | XMS REPORT ---
Author Margarita Irby [facility] Address [address] [place], [place] [phone] Care Team Providers Care Still Operator Batch Or Continuous Name Role Phone Margarita Wells PCP Allergies [...] chew 1 tablet by oral route daily Combivent Respimat 20-100 mcg/actuation inhalation mist inhale 1 puff by inhalation route 4 times per day ; may take additional puffs as needed not to exceed 6 puffs in 24hrs Symbicort 160-4.5 mcg/actuation inhalation HFA aerosol inhaler [...] route every 8 hours for 14 days omeprazole 20 mg oral capsule,delayed release(DR/EC) 1 capsule, BID cimetidine 800 mg oral tablet take 1 tablet (800 mg) by oral route once daily at bedtime Name Start Date Expiration Date SIG Comments [...] Name Start Date Discontinued Date SIG Comments Anti-Diarrheal (kvng)-Anti-Gas 2-125 mg oral tablet 04/11/2015 take 1 tablet by oral route 2 times a day resolved cimetidine 800 mg oral tablet 04/11/2015 take 1 tablet (800 mg) by oral route 2 times per day change freq naproxen 500 mg oral tablet 03/28/2015 omeprazole 20 mg oral tablet,delayed release (DR/EC) 04/11/2015 take 1 tablet by oral route daily change frequency furosemide 20 mg oral tablet 03/28/2015 take 1 tablet (20 mg) by oral route once daily Problem List Description Status Onset Chronic back pain Active Chronic Obstructive Pulmonary Disease Active GERD (gastroesophageal reflux disease) Active Hyperlipemia Active Vital Signs Date Time BP-Sys(mm[Hg] BP-Lucy(mm[Hg]) HR(bpm) RR(rpm) Temp WT HT HC BMI BSA BMI Percentile O2 Sat(%) 04/11/2015 1:18:00 PM 132 mmHg 64 mmHg [...] chronic bronchitis type Apr 11 2015 1:20PM Payers Insurance Name Company Name Plan Name Plan Number Policy Number Policy Group Number Start Date Medicare Part A Medicare Part A [id number] Thursday, 2008 [facility] Claims Center [id number] N/A Medicare Part B Medicare Of [place] [id number] N/A History of Encounters Visit Date Visit Type Provider 04/11/[address] Margarita Wells DO 04/06/2015 Office visit Kathy Batista MD 04/05/[address] Margarita Wells DO 03/28/[address] Margarita Wells DO
--- OUTSIDE RECORDS SUMMARY | 2018-01-15 08:26 | XMS REPORT ---
Author Margarita Irby [facility] Address [address] [place], [place] [address] Care Team Providers Care Plaster Tender Name Role Phone Margarita Wells PCP Allergies [...] Vis Given Vis Pub CVX PCV 04/19/2015 Nilos-Invyme-Zpvssqq-Praxis WAL Prevnar 13 [id number] Intramuscular Left Deltoid 04/19/2015 07/01/2012 133 Pneumococcal 04/19/2015 Qxzre-Ydqftx-Tbsrjhj-Praxis WAL Prevnar 13 [id number] Intramuscular Left Deltoid 04/19/2015 07/01/2012 133 Influenza [...] Number Start Date Humana Humana Claims Center [id number] N/A Medicare Part B Medicare Of [place] [id number] N/A Medicare Part A Medicare Part A [id number] Thursday, 2008 History of Encounters Visit Date [...]
[2018-01-15 08:27] VITALS: BP 149/85
--- OUTSIDE RECORDS SUMMARY | 2018-01-15 08:27 | XMS REPORT ---
Author Margarita Irby [facility] Address [address] [address] [place], [place] [phone] Care Team Providers Care Licensed Professional Counselor Name Role Phone Margarita Wells PCP [...] Active 05/08/2015 Vital Signs Date Time BP-Sys(mm[Hg] BP-Ulcy(mm[Hg]) HR(bpm) RR(rpm) Temp WT HT HC BMI [...] Vis Given Vis Pub CVX Pneumococcal 04/19/2015 Jqpja-Vjkkqa-Umwhtyz-Praxis WAL Prevnar 13 [id number] Intramuscular Left Deltoid 04/19/2015 07/01/2012 133 X 04/19/2015 Clfmc-Bitisd-Nriqvtc-Praxis WAL Prevnar 13 [id number] Intramuscular Left Deltoid 04/19/2015 07/01/2012 133 Influenza 04/19/2015 sanofi pasteur PMC Fluarix Quadrivalent [id number] Intramuscular Right Deltoid 04/19/2015 12/21/2014 141 Influenza 01/17/2016 sanofi pasteur PMC Fluzone High-Dose [id number] Intramuscular Left Deltoid 01/17/2016 12/09/2014 141 Influenza 02/13/2017 sanofi pasteur PMC Fluzone [id number] Intramuscular Left Deltoid 02/13/2017 12/09/2014 135 History [...] Number Start Date Humana Humana Claims Center [id number] N/A Medicare Part B Medicare Of [place] [id number] N/A Medicare Part A Medicare - Lab/Xray [id number] Thursday, July 03, 2008 [employer] [place] 25 Percent Tuesday, May 05, 2015 Medicare Part A Medicare Part A [id number] Thursday, July 03, 2008 History of Encounters Visit Date Visit Type Provider 02/13/[address] Margarita Wells DO 10/08/[address] Margarita Wells DO 09/11/[address] Margarita Wells DO 06/19/2016 Office visit 06/19/[address] Margarita Wells DO 05/22/[address] Margarita Wells DO 03/21/2016 Office visit Georgette Hernández FOREIGN TRADE TEACHER 01/17/[address] Margarita Wells DO [...] Wells DO 03/22/2015 [facility] Padmini Braber MD
--- OUTSIDE RECORDS SUMMARY | 2018-01-15 08:28 | XMS REPORT ---
Author Margarita Irby [facility] Address [address] [place], [place] [phone] Care Team Providers Care Lockstitch Waistline Joiner Name Role Phone Margarita Wells PCP Margarita [...] DAILY IN THE EVENING FOR 30 DAYS pravastatin 40 mg oral tablet 05/06/2017 08/04/2017 [...] TABLET BY MOUTH EVERY NIGHT AT BEDTIME Discontinued Name Start Date Discontinued Date SIG [...] HC BMI BSA BMI Percentile O2 Sat(%) 07/17/2017 9:43:00 AM 172 mmHg 82 mmHg [...] OCCULT BLOOD FECES Reviewed 02/13/2017 12:00 AM [facility] MEDICARE - flu vaccine administration [...] Vis Given Vis Pub CVX Pneumococcal 04/19/2015 Ydlgx-Wnmohn-Awyeaqq-Praxis WAL Prevnar 13 [id number] Intramuscular Left Deltoid 04/19/2015 07/01/2012 133 X 04/19/2015 Rynlr-Rbkjyc-Xqallyo-Praxis WAL Prevnar 13 [id number] Intramuscular Left Deltoid 04/19/2015 07/01/2012 133 Influenza 04/19/2015 sanofi pasteur PMC Fluarix Quadrivalent [id number] Intramuscular Right Deltoid 04/19/2015 12/21/2014 141 Influenza 01/17/2016 sanofi pasteur PMC Fluzone High-Dose [id number] Intramuscular Left Deltoid 01/17/2016 12/09/2014 141 Influenza 02/13/2017 sanofi pasteur PMC Fluzone [id number] Intramuscular Left Deltoid 02/13/2017 12/09/2014 135 History [...] 9:46AM Lung nodule Jul 17 2017 9:46AM Payers Insurance Name Company Name Plan Name Plan Number Policy Number Policy Group Number Start Date Medicare [facility] Medicare [facility] [id number] N/A Cigna Medicare Supplement Cigna Medicare Supplement [id number] N/A Medicare Part A Medicare Part A [id number] Thursday, 2008 Humana Humana Claims Center [id number] N/A Medicare Part B Medicare Of [place] [id number] N/A Medicare Part A Medicare - Lab/Xray [id number] Thursday, July 03, 2008 [employer] Financial Assistance [employer] Financial [place] 25 Percent Tuesday, May 05, 2015 History of Encounters Visit Date Visit Type Provider 07/17/[address] Margarita Wells DO [...] 05/08/2015 Office visit Kathy Batista MD 04/28/2015 [facility] Román Wells MD 04/19/[address] Margarita Wells DO 04/11/[address] Margarita Wells DO 04/06/2015 Office visit Kathy Batista MD 04/05/[address] Margarita Wells DO 04/02/2015 [facility] Padmini Barber MD 03/28/[address] Margarita Wells DO 03/22/2015 [facility] Padmini Barber MD
--- OUTSIDE RECORDS SUMMARY | 2018-01-15 08:29 | XMS REPORT ---
Author Margarita Irby [facility] Address [address] [place], [place] [address] Care Team Providers Care Vocational Aide Name Role Phone Margarita Wells PCP Margarita [...] same time each day for 30 days albuterol sulfate 2.5 mg /3 mL (0.083 %) inhalation solution for nebulization 10/09/2017 12/08/2017 INHALE 3 MILLILITERS (2.5 MG) BY NEBULIZATION ROUTE 4 TIMES PER DAY for 30 days. Dx: J44.9 Ventolin HFA 90 mcg/actuation inhalation HFA aerosol inhaler inhale 1 - 2 puffs (90 - 180 mcg) by inhalation route every 4-6 hours as needed Name Start Date Expiration Date SIG Comments [...] HC BMI BSA BMI Percentile O2 Sat(%) 10/16/2017 9:23:00 AM 156 mmHg 80 mmHg 97 bpm 16 rpm 98.6 F 144 lbs 70 in 20.6616 kg/m 1.7961 m 93 % 09/24/2017 10:40:00 AM 184 mmHg 84 mmHg 110 bpm 22 rpm 98.2 F 142.125 lbs 70 in 20.39 kg/m2 1.78 m2 91 % 09/17/2017 9:46:00 AM 198 mmHg [...] OCCULT BLOOD FECES Reviewed 02/13/2017 12:00 AM [facility] MEDICARE - flu vaccine administration Reviewed [...] Vis Given Vis Pub CVX Pneumococcal 04/19/2015 Odexv-Qouwbi-Dtibgng-Praxis WAL PREVNAR 13 [id number] Intramuscular Left Deltoid 04/19/2015 07/01/2012 133 X 04/19/2015 Uskcl-Lasbmi-Ftwcmnx-Praxis WAL PREVNAR 13 [id number] Intramuscular Left Deltoid 04/19/2015 07/01/2012 133 Influenza 04/19/2015 sanofi pasteur PMC Fluarix, quadrivalent, preservative free [id number] Intramuscular Right Deltoid 04/19/2015 12/21/2014 141 Influenza 01/17/2016 sanofi pasteur PMC FLUZONE-HIGH DOSE [id number] Intramuscular Left Deltoid 01/17/2016 12/09/2014 141 Influenza 02/13/2017 sanofi pasteur PMC FLUZONE [id number] Intramuscular Left Deltoid 02/13/2017 12/09/2014 135 History [...] 1:33PM Chronic bronchitis, unspecified chronic bronchitis type b 2015 9:57AM Frailty Jun 07 2015 9:57AM [...] obstructive pulmonary disease) Oct 16 2017 9:31AM Payers Insurance Name Company Name Plan Name Plan Number Policy Number Policy Group Number Start Date Medicare RHC Medicare RHC [id number] N/A Cigna Medicare Supplement Cigna Medicare Supplement [id number] N/A Medicare Part A Medicare Part A [id number] Thursday, 2008 Humana Humana Claims Center [id number] N/A Medicare Part B Medicare Of [place] [id number] N/A Medicare Part A Medicare - Lab/Xray [id number] Thursday, July 03, 2008 [employer] Financial Assistance [employer] Financial [place] 25 Percent Tuesday, May 05, 2015 History of Encounters Visit Date Visit Type Provider 10/16/[address] Margarita Wells DO 09/24/2017 [facility] Román Wells MD 09/24/[address] Margarita Wells [...] Wells DO 03/21/2016 Office visit Georgette Hernández TRANSPORT ANALYST 01/17/[address] Margarita Wells [...]
--- OUTSIDE RECORDS SUMMARY | 2018-01-15 08:29 | XMS REPORT ---
Author Author Margarita Wells [facility] Address [address] [place], [place] [address] Care Team Providers Care Continuous Improvement Director Name Role Phone Margarita Wells PCP Margarita [...] Active 05/08/2015 Vital Signs Date Time BP-Sys(mm[Hg] BP-Luyc(mm[Hg]) HR(bpm) RR(rpm) Temp WT HT HC BMI [...] OCCULT BLOOD FECES Reviewed 02/13/2017 12:00 AM [facility] MEDICARE - flu vaccine administration Reviewed [...] Vis Given Vis Pub CVX Pneumococcal 04/19/2015 Dzczb-Xssbnl-Zehczey-Praxis WAL PREVNAR 13 [id number] Intramuscular Left Deltoid 04/19/2015 07/01/2012 133 X 04/19/2015 Paeoc-Qwkgpd-Izhunfn-Praxis WAL PREVNAR 13 [id number] Intramuscular Left Deltoid 04/19/2015 07/01/2012 133 Influenza 04/19/2015 sanofi pasteur PMC Fluarix, quadrivalent, preservative free [id number] Intramuscular Right Deltoid 04/19/2015 12/21/2014 141 Influenza 01/17/2016 sanofi pasteur PMC FLUZONE-HIGH DOSE [id number] Intramuscular Left Deltoid 01/17/2016 12/09/2014 141 Influenza 02/13/2017 sanofi pasteur PMC FLUZONE [id number] Intramuscular Left Deltoid 02/13/2017 12/09/2014 135 History [...] Number Start Date Medicare RHC Medicare RHC [id number] N/A Cigna Medicare Supplement Cigna Medicare Supplement [id number] N/A Medicare Part A Medicare Part A [id number] Thursday, 2008 Humana Humana Claims Center [id number] N/A Medicare Part B Medicare Of [place] [id number] N/A Medicare Part A Medicare - Lab/Xray [id number] Thursday, July 03, 2008 [employer] Financial Assistance [employer] Financial [place] 25 Percent Tuesday, May 05, [...] 05/08/2015 Office visit Kathy Batista MD 04/28/2015 [facility] Román Wells MD 04/19/[address] Margarita Wells DO 04/11/[address] Margarita Wells DO 04/06/2015 Office visit Kathy Batista MD 04/05/[address] Margarita Wells DO 04/02/2015 [facility] Padmini Barber MD 03/28/[address] Margarita Wells DO 03/22/2015 [facility] Padmini Barber MD
[2018-01-15] MEDS ORDERED: MIDAZOLAM 2 MG/2 ML (VERSED) VIAL IVP ONE (08:30)
[2018-01-15] MEDS ORDERED: fentaNYL INJECTION 100 MCG/2 ML AMP IVP ONE (08:30)
--- OUTSIDE RECORDS SUMMARY | 2018-01-15 08:30 | XMS REPORT ---
Author Margarita Irby [facility] Address [address] [place], [place] [address] Care Team Providers Care Pneumatic Systems Operator Name Role Phone Margarita Wells PCP [...] 2D Complete - Adult 09/17/2017 12:00 AM Medications Active Name Start [...] CT THORAX W/DYE Returned 09/17/2017 12:00 AM BLOOD GASES ANY [...] Vis Given Vis Pub CVX Pneumococcal 04/19/2015 Zhmco-Yajqwa-Kdolxtb-Praxis WAL PREVNAR 13 [id number] Intramuscular Left Deltoid 04/19/2015 07/01/2012 133 X 04/19/2015 Zshnw-Sducds-Mizawvn-Praxis WAL PREVNAR 13 [id number] Intramuscular Left Deltoid 04/19/2015 07/01/2012 133 Influenza 04/19/2015 sanHALO[employer]D PMC Fluarix, quadrivalent, preservative free [id number] Intramuscular Right Deltoid 04/19/2015 12/21/2014 141 Influenza 01/17/2016 sanofi [employer] PMC FLUZONE-HIGH DOSE [id number] Intramuscular Left Deltoid 01/17/2016 12/09/2014 141 Influenza 02/13/2017 sanofi pasteur PMC FLUZONE [id number] Intramuscular Left Deltoid 02/13/2017 12/09/2014 135 History [...] type Feb 3 2015 9:57AM Frailty Feb 2015 9:57AM Tachycardia Feb 2015 9:57AM Spinal stenosis of lumbar region [...] Number Start Date Medicare RHC Medicare RHC [id number] N/A Cigna Medicare Supplement Cigna Medicare Supplement [id number] N/A Medicare Part A Medicare Part A [id number] Thursday, 2008 [facility] Humana Claims [place] [id number] N/A Medicare Part B Medicare Of [place] [id number] N/A Medicare Part A Medicare - Lab/Xray [id number] Thursday, July 03, 2008 [employer] Financial Assistance [employer] Financial [place] 25 Percent Tuesday, May 05, [...] 05/08/2015 Office visit Kathy Batista MD 04/28/2015 [facility] Román Wells MD 04/19/[address] Margarita Wells DO 04/11/[address] Margarita Wells DO 04/06/2015 Office visit Kathy Batista MD 04/05/[address] Margarita Wells DO 04/02/2015 [facility] Padmini Barber MD 03/28/[address] Margarita Wells DO 03/22/2015 [facility] Padmini Barber MD
--- OUTSIDE RECORDS SUMMARY | 2018-01-15 08:31 | XMS REPORT ---
Author Margarita Irby [facility] Address [address] [place], [place] [phone] Care Team Providers Care Roaster Supervisor Name Role Phone Margarita Wells PCP Margarita [...] DAILY FOR 30 DAYS for 30 days Anoro Ellipta 62.5-25 mcg/actuation inhalation blister with [...] TAKE 1 CAPSULE BY MOUTH TWICE DAILY metoprolol succinate 25 mg oral tablet extended [...] BEDTIME FOR 30 DAYS for 30 days aspirin [...] Vis Given Vis Pub CVX Pneumococcal 04/19/2015 Hbiqb-Ugijdi-Lshlzkv-Praxis [facility] Prevnar 13 [id number] Intramuscular Left Deltoid 04/19/2015 07/01/2012 133 X 04/19/2015 Jpqlt-Llymsn-Lfbxwbr-Praxis [facility] Prevnar 13 [id number] Intramuscular Left Deltoid 04/19/2015 07/01/2012 133 Influenza 04/19/2015 sanofi pasteur PMC Fluarix Quadrivalent [id number] Intramuscular Right Deltoid 04/19/2015 12/21/2014 141 Influenza 01/17/2016 sanofi pasteur PMC Fluzone High-Dose [id number] Intramuscular Left Deltoid 01/17/2016 12/09/2014 141 History [...] bronchitis type Jun 07 2015 9:57AM Frailty Feb 2015 9:57AM Tachycardia [...] Jun 19 2016 1:38PM Other chronic pain Feb 15 2017 1:38PM Frail elderly Jun 19 2016 1:38PM [...] 10:24AM Frail elderly Feb 13 2017 10:24AM Payers Insurance Name Company Name Plan Name Plan Number Policy Number Policy Group Number Start Date Humana Humana Claims Center [id number] N/A Medicare Part B Medicare Of [place] [id number] N/A Medicare Part A Medicare - Lab/Xray [id number] Thursday, July 03, 2008 [employer] Financial Assistance [employer] [place] 25 Percent Tuesday, May 05, 2015 Medicare Part A Medicare Part A [id number] Thursday, July 03, 2008 History of Encounters Visit Date Visit Type Provider 02/13/[address] Margarita Wells DO 10/08/[address] Margarita Wells DO 09/11/[address] Margarita Wells DO 06/19/2016 Office visit 06/19/[address] Margarita Wells DO 05/22/[address] Margarita Wells DO 03/21/2016 Office visit Georgette Hernández SUPERVISOR CLAM BED 01/17/[address] Margarita Wells DO [...]
--- OUTSIDE RECORDS SUMMARY | 2018-01-15 08:31 | XMS REPORT ---
Author Margarita Irby [facility] Address [address] [place], [place] [phone] Care Team Providers Care Agricultural Systems Specialist Name Role Phone Margarita Wells PCP Allergies and Adverse Reactions Name Reaction Notes PENICILLINS Syncope SULFA (SULFONAMIDES) rash Plan of Treatment Planned Activity Comments Planned Date Planned Time Plan/Goal US EXAM ABDOM COMPLETE 03/28/2015 12:[address] ABD & PELV W/CONTRAST 03/28/2015 12:00 AM MRI LUMBAR SPINE W/O DYE 04/07/2015 12:00 AM TTE W/DOPPLER COMPLETE 04/19/2015 12:00 AM COMPREHEN METABOLIC PANEL 09/12/2015 12:00 AM dysphagia and routine colon cancer screening 04/11/2015 10:15 AM Medications Active Name Start Date Estimated Completion Date SIG Comments Centrum Silver 400-250 mcg oral tablet,chewable chew 1 tablet by oral route daily Move Free Ultra 40-10-3.3 mg oral tablet take 1 tablet by oral route daily Singulair 10 mg oral tablet 06/23/2015 10/21/2015 take 1 tablet (10 mg) by oral route once daily in the evening for 30 days omeprazole 20 mg oral capsule,delayed release(DR/EC) 07/11/2015 01/07/2016 1 capsule, BID for 30 days metoprolol succinate 25 mg [...] 8 hours as needed for 30 days Symbicort 160-4.5 mcg/actuation inhalation HFA aerosol inhaler 09/12/20152015 inhale 2 puffs by inhalation route 2 times per day in the morning and evening for 30 days Name Start Date Expiration [...] 201509/09/2015 take as directed for 30 days Discontinued Name Start Date [...] by inhalation route daily for 30 days Problem List Description Status Onset Chronic back pain Active Chronic Obstructive Pulmonary Disease Active GERD (gastroesophageal reflux disease) Active Hyperlipemia Active Nocturia Active 05/08/2015 Bladder outlet obstruction Active 05/08/2015 Benign enlargement of prostate Active 05/08/2015 Vital Signs Date Time BP-Sys(mm[Hg] BP-Lucy(mm[Hg]) HR(bpm) RR(rpm) Temp WT HT HC BMI BSA BMI Percentile O2 Sat(%) 09/12/2015 9:44:00 AM 144 mmHg 68 mmHg [...] Vis Given Vis Pub CVX PCV 04/19/2015 [facility] Prevnar 13 [id number] Intramuscular Left Deltoid 04/19/2015 07/01/2012 133 X 04/19/2015 [facility] Prevnar 13 [id number] Intramuscular Left Deltoid 04/19/2015 07/01/2012 133 Influenza 04/19/2015 [facility] Fluarix Quadrivalent [id number] Intramuscular Right Deltoid [...] 9:49AM Tobacco abuse Sep 12 2015 9:49AM Payers Insurance Name Company Name Plan Name Plan Number Policy Number Policy Group Number Start Date Humana Humana Claims Center [id number] N/A Medicare Part B Medicare Of [place] [id number] N/A Medicare Part A Medicare - Lab/Xray [id number] Thursday, July 03, 2008 Medicare Part A Medicare Part A [id number] Thursday, July 03, 2008 History of Encounters Visit Date Visit Type Provider 09/12/[address] Margarita Wells DO 08/10/[address] Margarita Wells DO 07/11/[address] Margarita Wells DO 06/07/[address] Margarita Wells DO 05/10/[address] Margarita Wells DO 05/08/2015 Office visit Kathy Batista MD 04/28/2015 [facility] Román Wells MD 04/19/[address] Margarita Wells DO 04/11/[address] Margarita Wells DO 04/06/2015 Office visit Kathy Batista MD 04/05/[address] Margarita Wells DO 04/02/2015 [facility] Padmini Barber MD 03/28/[address] Margarita Wells DO 03/22/2015 [facility] Padmini Barber MD
--- OUTSIDE RECORDS SUMMARY | 2018-01-15 08:32 | XMS REPORT ---
Author Margarita Irby [facility] Address [address] [place], [place] [phone] Care Team Providers Care Java Software Architect Name Role Phone Margarita Wells PCP Allergies [...] Pancreatic duct dilated Apr 05 2015 1:17PM Payers Insurance Name Company Name Plan Name Plan Number Policy Number Policy Group Number Start Date Medicare Part A Medicare Part A [id number] Thursday, 2008 [employer] Claims [facility] [id number] N/A History of Encounters Visit Date Visit Type Provider 03/28/[address] Margarita Wells DO
--- OUTSIDE RECORDS SUMMARY | 2018-01-15 08:32 | XMS REPORT ---
Author Margarita Irby [facility] Address [address] [place], [place] [phone] Care Team Providers Care Director Oracle Database Name Role Phone Margarita Wells PCP Allergies and Adverse Reactions Name Reaction Notes PENICILLINS Syncope SULFA (SULFONAMIDES) rash Plan of Treatment Planned Activity Comments Planned Date Planned Time Plan/Goal US EXAM ABDOM COMPLETE 03/28/2015 12:[address] ABD & PELV W/CONTRAST 03/28/2015 12:00 AM MRI LUMBAR SPINE W/O DYE 04/07/2015 12:00 AM TTE W/DOPPLER COMPLETE 04/19/2015 12:00 AM FLU VACC 4 LILIANE 3 YRS PLUS IM 01/17/2016 12:00 AM dysphagia and routine colon cancer screening 04/11/2015 10:15 AM Medications Active Name Start Date Estimated Completion Date SIG Comments Centrum Silver 400-250 mcg oral tablet,chewable chew 1 tablet by oral route daily Singulair 10 mg oral tablet 10/12/2015 02/09/2016 [...] (10 mg) by oral route once daily hydrocodone-acetaminophen 5-325 mg oral tablet 01/17/2016 02/16/2016 take 1 tablet by oral route every 4-6 hours as needed for pain for 30 days metoprolol succinate 25 mg [...] once daily before bedtime for 30 days Discontinued Name Start Date [...] HC BMI BSA BMI Percentile O2 Sat(%) 01/17/2016 10:27:00 AM 132 mmHg 72 mmHg [...] Vis Given Vis Pub CVX PCV 04/19/2015 Llwqa-Pqeqjw-Fcgnhhl-Praxis [facility] Prevnar 13 [id number] Intramuscular Left Deltoid 04/19/2015 07/01/2012 133 X 04/19/2015 Erahy-Zfvurf-Abltmrw-Praxis [facility] Prevnar 13 [id number] Intramuscular Left Deltoid 04/19/2015 07/01/2012 133 Influenza 04/19/2015 [facility] PMC Fluarix Quadrivalent [id number] Intramuscular Right Deltoid [...] 2016 10:33AM Tachycardia Jan 17 2016 10:33AM Payers Insurance Name Company Name Plan Name Plan Number Policy Number Policy Group Number Start Date Human Humana Claims Center [id number] N/A [employer] Financial Assistance [employer] [place] 25 Percent Tuesday, May 05, 2015 Medicare Part A Medicare Part A [id number] Thursday, July 03, 2008 Medicare Part B Medicare Of [place] [id number] N/A Medicare Part A Medicare - Lab/Xray [id number] Thursday, July 03, 2008 History of Encounters Visit Date Visit Type Provider 01/17/[address] Margarita Wells DO 10/12/[address] Margarita Wells DO 09/12/[address] Margarita Wells DO 08/10/[address] Margarita Wells DO 07/11/[address] Margarita Wells DO 06/07/[address] Margarita Wells DO 05/10/[address] Margarita Wells DO 05/08/2015 Office visit Kathy Batista MD 04/28/2015 [facility] Román Wells MD 04/19/[address] Margarita Wells DO 04/11/[address] Margarita Wells DO 04/06/2015 Office visit Kathy Batista MD 04/05/[address] Margarita Wells DO 04/02/2015 [facility] Padmini Barber MD 03/28/[address] Margarita Wells DO 03/22/2015 [facility] Padmini Barber MD
--- OUTSIDE RECORDS SUMMARY | 2018-01-15 08:33 | XMS REPORT ---
Author Margarita Irby [facility] Address [address] [place], [place] [address] Care Team Providers Care Gang Investigator Name Role Phone Margarita Wells PCP Allergies [...] chew 1 tablet by oral route daily Breo Ellipta 100-25 mcg/dose inhalation blister with device 10/12/20152015 inhale 1 puff by inhalation route once daily at the same time each day for 30 days hydrocodone-acetaminophen 5-325 mg oral tablet 10/12/2015 11/11/2015 take 1 tablet by oral route Q12hrs as needed for pain 30 days metoprolol succinate 25 mg oral tablet extended release 24 hr 10/12/20152015 take 1 tablet by oral route daily for 30 days omeprazole 20 mg oral capsule,delayed release(DR/EC) 10/12/2015 12/11/2015 1 capsule, BID for 30 days Remeron 30 mg oral tablet 10/12/2015 01/10/2016 take 1 tablet (30 mg) by oral route once daily before bedtime for 30 days Singulair 10 mg oral tablet 10/12/2015 02/09/2016 take 1 tablet (10 mg) by oral route once daily in the evening for 30 days Name Start Date [...] the morning and evening for 30 days Problem List Description Status [...] Vis Given Vis Pub CVX PCV 04/19/2015 Azzge-Ffmite-Fyypvtn-Praxis [facility] Prevnar 13 [id number] Intramuscular Left Deltoid 04/19/2015 07/01/2012 133 X 04/19/2015 Zysjz-Fqkove-Cwhdmzf-Praxis [facility] Prevnar 13 [id number] Intramuscular Left Deltoid 04/19/2015 07/01/2012 133 Influenza [...] Number Start Date Humana Humana Claims Center [id number] N/A Medicare Part B Medicare Of [place] [id number] N/A Medicare Part A Medicare - Lab/Xray [id number] Thursday, July 03, 2008 Medicare Part A Medicare Part A [id number] Thursday, July 03, 2008 History of Encounters [...]
--- OUTSIDE RECORDS SUMMARY | 2018-01-15 08:33 | XMS REPORT ---
Author Author Margarita Wells [facility] Address [address] [place], [place] [address] Care Team Providers Care Bark Scaler Name Role Phone Margarita Wells PCP Allergies and Adverse Reactions Name Reaction Notes PENICILLINS Syncope SULFA (SULFONAMIDES) rash Plan of Treatment Planned Activity Comments Planned Date Planned Time Plan/Goal US EXAM ABDOM COMPLETE 03/28/2015 12:[address] ABD & PELV W/CONTRAST 03/28/2015 12:00 AM MRI LUMBAR SPINE W/O DYE 04/07/2015 12:00 AM TTE W/O DOPPLER COMPLETE 04/19/2015 12:00 AM FLU VACC 4 LILIANE 3 YRS PLUS IM 04/19/2015 12:00 AM dysphagia and routine colon [...] AM PNEUMOCOCCAL VACC 13 LILIANE IM Reviewed Results Summary Data and Description [...] Vis Given Vis Pub CVX PCV 04/19/2015 Juciv-Bplzsv-Pmdmdna-Praxis [facility] Prevnar 13 [id number] Intramuscular Left Deltoid 04/19/2015 07/01/2012 133 Pneumococcal 04/19/2015 Sxzny-Vayyrt-Bxbsbcc-Praxis [facility] Prevnar 13 [id number] Intramuscular Left Deltoid 04/19/2015 07/01/2012 133 History of Past Illness Name Date of [...] Number Start Date Humana Humana Claims Center [id number] N/A Medicare Part B Medicare Of [place] [id number] N/A Medicare Part A Medicare Part A [id number] Thursday, 2008 History of Encounters Visit Date Visit Type Provider 04/19/[address] Margarita Wells DO 04/11/[address] Margarita Wells DO 04/06/2015 Office visit Kathy Batista MD 04/05/[address] Margarita Wells DO 03/28/[address] Margarita Wells DO
--- OUTSIDE RECORDS SUMMARY | 2018-01-15 08:33 | XMS REPORT ---
Author Margarita Irby [facility] Address [address] [place], [place] [address] Care Team Providers Care Professional Benefits Sales Consultant Name Role Phone Margarita Wells PCP Allergies [...] 6 puffs in 24hrs for 30 days hydrocodone-acetaminophen 5-325 mg oral tablet 06/07/2015 07/07/2015 take 1 tablet by oral route every 8 hours as needed for 30 days Remeron 30 mg oral tablet 06/07/2015 09/05/2015 take 1 tablet (30 mg) by oral route once daily before bedtime for 30 days omeprazole 20 mg oral capsule,delayed release(DR/EC) 06/07/2015 10/05/2015 1 capsule, BID for 30 days metoprolol [...] 2 times per day for 30 days Problem List Description Status Onset Chronic back pain Active Chronic Obstructive Pulmonary Disease Active GERD (gastroesophageal reflux disease) Active Hyperlipemia Active Nocturia Active 05/08/2015 Bladder outlet obstruction Active 05/08/2015 Benign enlargement of prostate Active 05/08/2015 Vital Signs Date Time BP-Sys(mm[Hg] BP-Lucy(mm[Hg]) HR(bpm) RR(rpm) Temp WT HT HC BMI BSA BMI Percentile O2 Sat(%) 06/07/2015 9:49:00 AM 128 mmHg 74 mmHg [...] Vis Given Vis Pub CVX PCV 04/19/2015 [employer] Prevnar 13 [id number] Intramuscular Left Deltoid 04/19/2015 07/01/2012 133 Pneumococcal 04/19/2015 Bdduu-Oyuive-VvxdmwgNeedly [facility] Prevnar 13 [id number] Intramuscular Left Deltoid 04/19/2015 07/01/2012 133 Influenza [...] 2015 9:57AM Tachycardia Jun 07 2015 9:57AM Payers Insurance Name Company Name Plan Name Plan Number Policy Number Policy Group Number Start Date Humana Humana Claims Center [id number] N/A Medicare Part B Medicare Of [place] [id number] N/A Medicare Part A Medicare Part A [id number] Thursday, 2008 History of Encounters Visit Date Visit Type Provider 06/07/[address] Margarita Wells DO 05/10/[address] Margarita Wells DO 05/08/2015 Office visit Katyh Batista MD 04/28/2015 [facility] Román Wells MD 04/19/[address] Margarita Wells DO 04/11/[address] Margarita Wells DO 04/06/2015 Office visit Kathy Batista MD 04/05/[address] Margarita Wells DO 03/28/[address] Margarita Wells DO 03/22/2015 [facility] Padmini Barber MD
--- OUTSIDE RECORDS SUMMARY | 2018-01-15 08:34 | XMS REPORT ---
Author Margarita Irby [facility] Address [address] [place], [place] [address] Care Team Providers Care Environmental Attorney Name Role Phone Margarita Wells PCP Allergies [...] daily before bedtime for 30 days Singulair 5 mg oral tablet,chewable 06/07/2015 07/07/2015 chew 2 tablets (10 mg ) by oral route once daily in the [...] Vis Given Vis Pub CVX PCV 04/19/2015 Iizvd-Gwysdx-Ogfscmr-Praxis [facility] Prevnar 13 [id number] Intramuscular Left Deltoid 04/19/2015 07/01/2012 133 Pneumococcal 04/19/2015 Qiwlj-Apqpmj-HvrajlnAugmedix Prevnar 13 [id number] Intramuscular Left Deltoid 04/19/2015 07/01/2012 133 Influenza 04/19/2015 [employer] [facility] Fluarix Quadrivalent [id number] Intramuscular Right [...] Number Start Date Humana Humana Claims Center [id number] N/A Medicare Part B Medicare Of [place] [id number] N/A Medicare Part A Medicare Part A [id number] Thursday, 2008 History of Encounters Visit Date Visit Type Provider 06/07/[address] Margarita Wells DO 05/10/[address] Margarita Wells DO 05/08/2015 Office visit Kathy Batista MD 04/19/[address] Margarita Wells DO 04/11/[address] Margarita Wells DO 04/06/2015 Office visit Kathy Batista MD 04/05/[address] Margarita Wells DO 03/28/[address] Margarita Wells DO 03/22/2015 [facility] Padmini Barber MD
--- OUTSIDE RECORDS SUMMARY | 2018-01-15 08:34 | XMS REPORT ---
Author Margarita Irby [facility] Address [address] [place], [place] [phone] Care Team Providers Care Library Helper Name Role Phone Margarita Wells PCP Margarita [...] SAME TIME EACH DAY FOR 30 DAYS pravastatin 40 mg oral [...] Vis Given Vis Pub CVX Pneumococcal 04/19/2015 Emive-Vsqcke-Fenzuyl-Praxis [facility] Prevnar 13 [id number] Intramuscular Left Deltoid 04/19/2015 07/01/2012 133 X 04/19/2015 Mfmsd-Fkpfns-Orqvzwa-Praxis [facility] Prevnar 13 [id number] Intramuscular Left Deltoid 04/19/2015 07/01/2012 133 Influenza 04/19/2015 sanofi pasteur PMC Fluarix Quadrivalent [id number] Intramuscular Right Deltoid 04/19/2015 12/21/2014 141 Influenza 01/17/2016 sanofi pasteur PMC Fluzone High-Dose [id number] Intramuscular Left Deltoid 01/17/2016 12/09/2014 141 Influenza 02/13/2017 sanofi pasteur PMC Fluzone [id number] Intramuscular Left Deltoid 02/13/2017 12/09/2014 135 History [...] chronic bronchitis type Feb 2015 9:57AM Frailty b 2015 9:57AM Tachycardia Jun [...] Routine health maintenance Jun 10 2017 11:45AM Payers Insurance Name Company Name Plan Name Plan Number Policy Number Policy Group Number Start Date Humana Humana Claims Center [id number] N/A Medicare Part B Medicare Of [place] [id number] N/A Medicare Part A Medicare - Lab/Xray [id number] Thursday, July 03, 2008 [employer] Financial Assistance [employer] [place] 25 Percent Tuesday, May 05, 2015 Medicare Part A Medicare Part A [id number] Thursday, July 03, 2008 History of Encounters [...] 05/08/2015 Office visit Kathy Batista MD 04/28/2015 [facility] Román Wells MD 04/19/[address] Margarita Wells DO 04/11/[address] Margarita Wells DO 04/06/2015 Office visit Kathy Batista MD 04/05/[address] Margarita Wells DO 04/02/2015 [facility] Padmini Barber MD 03/28/[address] Margarita Wells DO 03/22/2015 [facility] Padmini Barber MD
--- OUTSIDE RECORDS SUMMARY | 2018-01-15 08:35 | XMS REPORT ---
Author Margarita Irby [facility] Address [address] [place], [place] [address] Care Team Providers Care Dairy Store Manager Name Role Phone Margarita Wells PCP Allergies and Adverse Reactions Name Reaction Notes PENICILLINS Syncope SULFA (SULFONAMIDES) rash Plan of Treatment Planned Activity Comments Planned Date Planned Time Plan/Goal US EXAM ABDOM COMPLETE 03/28/2015 12:[address] ABD & PELV W/CONTRAST 03/28/2015 12:00 AM MRI LUMBAR SPINE W/O DYE 04/07/2015 12:00 AM TTE W/O DOPPLER COMPLETE 04/19/2015 12:00 AM dysphagia and routine [...] chronic bronchitis type Apr 19 2015 10:48AM Payers Insurance Name Company Name Plan Name Plan Number Policy Number Policy Group Number Start Date Humana Humana Claims Center [id number] N/A Medicare Part B Medicare Of [place] [id number] N/A Medicare Part A Medicare Part A [id number] Thursday, 2008 History of Encounters Visit Date Visit Type Provider 04/19/[address] Margarita Wells DO 04/11/[address] Margarita Wells DO 04/06/2015 Office visit Kathy Batista MD 04/05/[address] Margarita Wells DO 03/28/[address] Margarita Wells DO
--- OUTSIDE RECORDS SUMMARY | 2018-01-15 08:36 | XMS REPORT ---
Author Margarita Irby [facility] Address [address] [place], [place] [address] Care Team Providers Care Pulp Grinder Name Role Phone Margarita Wells PCP Margarita [...] OCCULT BLOOD FECES Reviewed 02/13/2017 12:00 AM INFLUENZA VACCINE SPLT [...] Vis Given Vis Pub CVX Pneumococcal 04/19/2015 Ryalj-Foxrwz-Gxmrjkx-Praxis [facility] Prevnar 13 [id number] Intramuscular Left Deltoid 04/19/2015 07/01/2012 133 X 04/19/2015 Mbwmw-Onhzrp-Hjwaezf-Praxis [facility] Prevnar 13 [id number] Intramuscular Left Deltoid 04/19/2015 07/01/2012 133 Influenza 04/19/2015 sanofi pasteur PMC Fluarix Quadrivalent [id number] Intramuscular Right Deltoid 04/19/2015 12/21/2014 141 Influenza 01/17/2016 sanofi pasteur PMC Fluzone High-Dose [id number] Intramuscular Left Deltoid 01/17/2016 12/09/2014 141 Influenza 02/13/2017 sanofi pasteur PMC Fluzone [id number] Intramuscular Left Deltoid 02/13/2017 12/09/2014 135 History [...] Number Start Date Humana Humana Claims Center [id number] N/A Medicare Part B Medicare Of [place] [id number] N/A Medicare Part A Medicare - Lab/Xray [id number] Thursday, July 03, 2008 [employer] Financial Assistance [employer] [place] 25 Percent Tuesday, May 05, 2015 Medicare Part A Medicare Part A [id number] Thursday, July 03, 2008 History of Encounters [...]
--- OUTSIDE RECORDS SUMMARY | 2018-01-15 08:36 | XMS REPORT ---
Author Margarita Irby [facility] Address [address] [place], [place] [address] Care Team Providers Care Cyber Systems Operations Specialist Name Role Phone Margarita Wells PCP [...] oral route once daily for 3 days Name Start Date Expiration Date SIG [...] Vis Given Vis Pub CVX PCV 04/19/2015 Sqvlq-Ufjylf-Kfaljqq-Praxis [facility] Prevnar 13 [id number] Intramuscular Left Deltoid 04/19/2015 07/01/2012 133 Pneumococcal 04/19/2015 Mahwl-Bsctaq-Vgvbnmv-Praxis [facility]AL Prevnar 13 [id number] Intramuscular Left Deltoid 04/19/2015 07/01/2012 133 Influenza 04/19/2015 [facility]ofi [facility] PMC Fluarix Quadrivalent [id number] Intramuscular Right [...] Number Start Date Humana Humana Claims Center [id number] N/A Medicare Part B Medicare Of [place] [id number] N/A Medicare Part A Medicare Part A [id number] Thursday, 2008 History of Encounters Visit Date Visit Type Provider 04/19/[address] Margarita Wells DO 04/11/[address] Margarita Wells DO 04/06/2015 Office visit Kathy Batista MD 04/05/[address] Margarita Wells DO 03/28/[address] Margarita Wells DO
--- OUTSIDE RECORDS SUMMARY | 2018-01-15 08:37 | XMS REPORT ---
Author Margarita Irby [facility] Address [address] [place], [place] [phone] Care Team Providers Care Claim Agent Name Role Phone Margarita Wells PCP Margarita [...] ORAL ROUTE ONCE DAILY FOR 30 DAYS Name Start Date Expiration [...] Vis Given Vis Pub CVX Pneumococcal 04/19/2015 Qkvdz-Opdcko-Ehrliug-Praxis [facility] Prevnar 13 [id number] Intramuscular Left Deltoid 04/19/2015 07/01/2012 133 X 04/19/2015 Wdsxz-Urwwes-Nxulfoy-Praxis [facility] Prevnar 13 [id number] Intramuscular Left Deltoid 04/19/2015 07/01/2012 133 Influenza 04/19/2015 sanofi pasteur PMC Fluarix Quadrivalent [id number] Intramuscular Right Deltoid 04/19/2015 12/21/2014 141 Influenza 01/17/2016 sanofi pasteur PMC Fluzone High-Dose [id number] Intramuscular Left Deltoid 01/17/2016 12/09/2014 141 History [...] Number Start Date Humana Humana Claims Center [id number] N/A Medicare Part B Medicare Of [place] [id number] N/A Medicare Part A Medicare - Lab/Xray [id number] Thursday, July 03, 2008 [employer] Financial Assistance [employer] Financial [place] 25 Percent Tuesday, May 05, 2015 Medicare Part A Medicare Part A [id number] Thursday, July 03, 2008 History of Encounters [...] 05/08/2015 Office visit Kathy Batista MD 04/28/2015 [facility] Román Wells MD 04/19/[address] Margarita Wells DO 04/11/[address] Margarita Wells DO 04/06/2015 Office visit Kathy Batista MD 04/05/[address] Margarita Wells DO 04/02/2015 [facility] Padmini Barber MD 03/28/[address] Margarita Wells DO 03/22/2015 [facility] Padmini Barber MD
--- OUTSIDE RECORDS SUMMARY | 2018-01-15 08:37 | XMS REPORT ---
Author Margarita Irby [facility] Address [address] [address] [place], [place] [id number] Care Team Providers Care Wafer Slicer Name Role Phone Margarita Wells PCP Margarita [...] DAILY FOR 30 DAYS FOR 30 DAYS omeprazole 20 mg oral capsule,delayed release(DR/EC) 12/11/2016 TAKE 1 CAPSULE BY MOUTH TWICE DAILY pravastatin 40 mg oral tablet 12/31/2016 04/30/2017 TAKE 1 TABLET(40 MG) BY MOUTH EVERY EVENING Name Start Date Expiration Date SIG Comments [...] Vis Given Vis Pub CVX Pneumococcal 04/19/2015 Mjqse-Rqnuri-Yayytat-Praxis W[facility] Prevnar 13 [id number] Intramuscular Left Deltoid 04/19/2015 07/01/2012 133 X 04/19/2015 Wgmgc-Ptidrl-Yqqczxx-Praxis WAL Prevnar 13 [id number] Intramuscular Left Deltoid 04/19/2015 07/01/2012 133 Influenza 04/19/2015 sanofi pasteur PMC Fluarix Quadrivalent [id number] Intramuscular Right Deltoid 04/19/2015 12/21/2014 141 Influenza 01/17/2016 sanofi pasteur PMC Fluzone High-Dose [id number] Intramuscular Left Deltoid 01/17/2016 12/09/2014 141 History [...] 2015 9:57AM Frailty b 2015 9:57AM Tachycardia b 2015 9:57AM Spinal [...] pulmonary disease) May 22 2016 2:16PM Hyperlipemia Feb 2016 1:38PM COPD (chronic obstructive pulmonary disease) Feb 15 2017 1:38PM Dorsalgia, unspecified Jun 19 2016 1:38PM [...] Number Start Date Humana Humana Claims Center [id number] N/A Medicare Part B Medicare Of [place] [id number] N/A Medicare Part A Medicare - Lab/Xray [id number] Thursday, July 03, [address] [employer] [address] [employer] [place] 25 Percent Tuesday, May 05, 2015 Medicare Part A Medicare Part A [id number] Thursday, July 03, 2008 History of Encounters [...] 05/08/2015 Office visit Kathy Batista MD 04/28/2015 Hospital Román Wells MD 04/19/[address] Margarita Wells DO 04/11/[address] Margarita Wells DO 04/06/2015 Office visit Kathy Batista MD 04/05/[address] Margarita Wells DO 04/02/2015 [facility] Padmini Barber MD 03/28/[address] Margarita Wells DO 03/22/2015 [facility] Padmini Barber MD
--- OUTSIDE RECORDS SUMMARY | 2018-01-15 08:40 | XMS REPORT ---
Author Author Kathy Batista [facility] Address [address] [place], [place] [id number] Care Team Providers Care Car Inspector Name Role Phone Kathy Batista PCP Unavailable [...] HC BMI BSA BMI Percentile O2 Sat(%) 05/08/2015 11:04:00 AM 138 lbs 70 in [...] Vis Given Vis Pub CVX PCV 04/19/2015 Tantr-Hbfcnh-Uuwzcfi-Praxis WAL Prevnar 13 [id number] Intramuscular Left Deltoid 04/19/2015 07/01/2012 133 Pneumococcal 04/19/2015 Txzpq-Vkulxk-Tqpqwib-Praxis WAL Prevnar 13 [id number] Intramuscular Left Deltoid 04/19/2015 07/01/2012 133 Influenza [...] 2015 11:05AM Nocturia May 08 2015 11:05AM Payers Insurance Name Company Name Plan Name Plan Number Policy Number Policy Group Number Start Date Humana Humana Claims Center [id number] N/A Medicare Part B Medicare Of [place] [id number] N/A Medicare Part A Medicare Part A [id number] Thursday, 2008 History of Encounters Visit Date Visit Type Provider 05/08/2015 Office visit Kathy Batista MD 04/19/[address] Margarita Wells DO 04/11/[address] Margarita Wells DO 04/06/2015 Office visit Kathy Batista MD 04/05/[address] Margarita Wells DO 03/28/[address] Margarita Wells DO 03/22/2015 [facility] Padmini Barber MD
--- OUTSIDE RECORDS SUMMARY | 2018-01-15 08:41 | XMS REPORT ---
Author Margarita Irby [facility] Address [address] [place], [place] [phone] Care Team Providers Care Assembler Semiconductor Name Role Phone Margarita Wells PCP Margarita [...] Vis Given Vis Pub CVX Pneumococcal 04/19/2015 Jooar-Fceodz-Ejvgrzf-Praxis WAL Prevnar 13 [id number] Intramuscular Left Deltoid 04/19/2015 07/01/2012 133 X 04/19/2015 Cabgn-Hekvyo-Vleromh-Praxis WAL Prevnar 13 [id number] Intramuscular Left Deltoid 04/19/2015 07/01/2012 133 Influenza 04/19/2015 sanofi pasteur PMC Fluarix Quadrivalent [id number] Intramuscular Right Deltoid 04/19/2015 12/21/2014 141 Influenza 01/17/2016 sanofi pasteur PMC Fluzone High-Dose [id number] Intramuscular Left Deltoid 01/17/2016 12/09/2014 141 History [...] Number Start Date Humana Humana Claims Center [id number] N/A [employer] Financial Assistance [employer] [place] 25 Percent Tuesday, May 05, 2015 Medicare Part A Medicare Part A [id number] Thursday, July 03, 2008 Medicare Part B Medicare [place] [id number] N/A Medicare Part A Medicare - Lab/Xray [id number] Thursday, July 03, 2008 History of Encounters [...]
--- OUTSIDE RECORDS SUMMARY | 2018-01-15 08:41 | XMS REPORT ---
Author Margarita Irby [facility] Address [address] [place], [place] [id number] Care Team Providers Care Health Records Technology Teacher Name Role Phone Margarita Wells PCP Margarita [...] Vis Given Vis Pub CVX Pneumococcal 04/19/2015 Odivw-Clszsp-Wnvranj-Praxis WAL Prevnar 13 [id number] Intramuscular Left Deltoid 04/19/2015 07/01/2012 133 X 04/19/2015 Ftudf-Ivrpdp-Mfvrjpq-Praxis WAL Prevnar 13 [id number] Intramuscular Left Deltoid 04/19/2015 07/01/2012 133 Influenza 04/19/2015 sanofi pasteur PMC Fluarix Quadrivalent [id number] Intramuscular Right Deltoid 04/19/2015 12/21/2014 141 Influenza 01/17/2016 sanofi pasteur PMC Fluzone High-Dose [id number] Intramuscular Left Deltoid 01/17/2016 12/09/2014 141 History [...] Number Start Date Humana Humana Claims Center [id number] N/A [employer] Financial Assistance [employer] [place] 25 Percent Tuesday, May 05, 2015 Medicare Part A Medicare Part A [id number] Thursday, July 03, 2008 Medicare Part B Medicare [place] [id number] N/A Medicare Part A Medicare - Lab/Xray [id number] Thursday, July 03, 2008 History of Encounters [...]
--- OUTSIDE RECORDS SUMMARY | 2018-01-15 08:42 | XMS REPORT ---
Author Author Georgette Hernández [facility] Address [address] [place], [place] [address] Care Team Providers Care Seismograph Observer Name Role Phone Georgette Hernández PCP Unavailable [...] BY NEBULIZATION ROUTE 4 TIMES PER DAY Name Start Date Expiration Date SIG Comments [...] Vis Given Vis Pub CVX Pneumococcal 04/19/2015 Lfrra-Uabpsa-Rliivic-Praxis WAL Prevnar 13 [id number] Intramuscular Left Deltoid 04/19/2015 07/01/2012 133 X 04/19/2015 Dkwqj-Nityrd-Zilxsxq-Praxis WAL Prevnar 13 [id number] Intramuscular Left Deltoid 04/19/2015 07/01/2012 133 Influenza 04/19/2015 sanofi [employer] PMC Fluarix Quadrivalent [id number] Intramuscular Right Deltoid 04/19/2015 12/21/2014 141 Influenza 01/17/2016 sanofi pasteur PMC Fluzone High-Dose [id number] Intramuscular Left Deltoid 01/17/2016 12/09/2014 141 History [...] bronchitis type Feb 2015 9:57AM Frailty Feb 2015 9:57AM Tachycardia b 2015 9:57AM Spinal [...] Number Start Date Humana Humana Claims Center [id number] N/A [facility] Financial Assistance [facility] Financial [place] 25 Percent Tuesday, May 05, 2015 Medicare Part A Medicare Part A [id number] Thursday, July 03, 2008 Medicare Part B Medicare [place] [id number] N/A Medicare Part A Medicare - Lab/Xray [id number] Thursday, July 03, 2008 History of Encounters Visit Date Visit Type Provider 03/21/2016 Office visit Georgette Hernández SEWING MACHINE REPAIRER 01/17/[address] Margarita Wells DO 10/12/[address] Margarita Wells DO 09/12/[address] Margarita Wells DO 08/10/[address] Margarita Wells DO 07/11/[address] Margarita Wells DO 06/07/[address] Margarita Wells DO 05/10/[address] Margarita Wells DO 05/08/2015 Office visit Kathy Batista MD 04/28/2015 [facility] Romná Wells MD 04/19/[address] Margarita Wells DO 04/11/[address] Margarita Wells DO 04/06/2015 Office visit Kathy Batista MD 04/05/[address] Margarita Wells DO 04/02/2015 [facility] Padmini Barber MD 03/28/[address] Margarita Wells DO 03/22/2015 [facility] Padmini Barber MD
--- OUTSIDE RECORDS SUMMARY | 2018-01-15 08:43 | XMS REPORT ---
Author Margarita Irby [facility] Address [address] [facility] [address] [place], [place] [phone] Care Team Providers Care Quality Assurance Specialist Name Role Phone Margarita Wells PCP Margarita [...] the morning and evening for 30 days aspirin 81 mg oral tablet,chewable 09/11/2016 10/11/2016 chew 1 tablet (81 mg) by oral route once daily for 30 days metoprolol succinate 25 [...] BEDTIME FOR 30 DAYS for 30 days Singulair [...] 4-6 hours as needed for 30 days Discontinued [...] Vis Given Vis Pub CVX Pneumococcal 04/19/2015 Sgllh-Zghtxa-Hrhkvch-Praxis WAL Prevnar 13 [id number] Intramuscular Left Deltoid 04/19/2015 07/01/2012 133 X 04/19/2015 Lzlfq-Jrxuyl-Rgsrwrh-Praxis WAL Prevnar 13 [id number] Intramuscular Left Deltoid 04/19/2015 07/01/2012 133 Influenza 04/19/2015 sanofi pasteur PMC Fluarix Quadrivalent [id number] Intramuscular Right Deltoid 04/19/2015 12/21/2014 141 Influenza 01/17/2016 sanofi pasteur PMC Fluzone High-Dose [id number] Intramuscular Left Deltoid 01/17/2016 12/09/2014 141 History [...] Number Start Date Humana Humana Claims Center [id number] N/A Medicare Part B Medicare [place] [id number] N/A Medicare Part A Medicare - Lab/Xray [id number] Thursday, July 03, 2008 [employer] Financial Assistance [employer] [place] 25 Percent Tuesday, May 05, 2015 Medicare Part A Medicare Part A [id number] Thursday, July 03, 2008 History of Encounters [...]
--- OUTSIDE RECORDS SUMMARY | 2018-01-15 08:43 | XMS REPORT ---
Author Margarita Irby [facility] Address [address] [facility] [address] [place], [place] [address] Care Team Providers Care Hopper Attendant Name Role Phone Margarita Wells PCP Margarita [...] oral route once daily for 30 days Arnuity Ellipta 200 mcg/actuation inhalation blister with device 09/11/201610/11/2016 inhale 1 puff (200 mcg) by inhalation route once daily at the same time each day for 30 days metoprolol succinate 25 mg [...] HC BMI BSA BMI Percentile O2 Sat(%) 09/11/2016 1:26:00 PM 124 mmHg 72 mmHg [...] F 150 lbs 70 in 21.5225 kg/m 1.83 m2 93 % Social History Name [...] AM OCCULT BLOOD FECES Reviewed Results Summary Data and Description Results [...] Vis Given Vis Pub CVX Pneumococcal 04/19/2015 Carly-Laquita WAL Prevnar 13 [id number] Intramuscular Left Deltoid 04/19/2015 07/01/2012 133 X 04/19/2015 [facility] [id number] Intramuscular Left Deltoid 04/19/2015 07/01/2012 133 Influenza 04/19/2015 [facility] Fluarix Quadrivalent [id number] Intramuscular Right Deltoid 04/19/2015 12/21/2014 141 Influenza 01/17/2016 [facility] PMC Fluzone High-Dose [id number] Intramuscular Left Deltoid 01/17/2016 12/09/2014 141 History [...] 2016 1:31PM Tachycardia Sep 11 2016 1:31PM Payers Insurance Name Company Name Plan Name Plan Number Policy Number Policy Group Number Start Date Humana Humana Claims Center [id number] N/A Medicare Part B Medicare Of [place] [id number] N/A Medicare Part A Medicare - Lab/Xray [id number] Friday, July 03, 2008 [employer] Financial Assistance [employer] Financial Va[place] 25 Percent Tuesday, May 05, 2015 Medicare Part A Medicare Part A [id number] Thursday, July 03, 2008 History of Encounters Visit Date Visit Type Provider 09/11/[address] Margarita Wells DO [...] 05/08/2015 Office visit Kathy Batista MD 04/28/2015 [facility] Román Wells MD 04/19/[address] Margarita Wells DO 04/11/[address] Margarita Wells DO 04/06/2015 Office visit Kathy Batista MD 04/05/[address] Margarita Wells DO 04/02/2015 [facility] Padmini Barber MD 03/28/[address] Margarita Wells DO 03/22/2015 [facility] Padmini Barber MD
--- OUTSIDE RECORDS SUMMARY | 2018-01-15 08:44 | XMS REPORT | Continuity of Care Document ---
Author Author [facility] Organization [facility] Address Unknown Phone Unavailable Allergies Active Description Code Type Severity Reaction Onset Reported/Identified Relationship to Patient Clinical Status Yes penicillin 79164473 DRUG N/A SYNCOPE Yes penicillin [id number] DRUG N/A UNKNOWN Yes SULFA (sulfonamide) [id number] CLASS N/A OTHER Yes SULFA (sulfonamide) [id number] CLASS N/A RASH Medications There is no data. Problems Date Dx Coded Attending Type Code Diagnosis Diagnosed By 06/29/2015 LESLI SNEED DO Ot J44.9 06/29/2015 LESLI SNEED DO Ot R06.00 06/29/2015 LESLI SNEED DO Ot R09.02 08/10/2015 LESLI SNEED DO Ot J44.9 08/10/2015 LESLI SNEED DO Ot R06.00 08/10/2015 LESLI SNEED DO Ot R09.02 08/21/2015 LESLI SNEED DO Ot J44.9 CHRONIC OBSTRUCTIVE PULMONARY DISEASE, U 08/21/2015 LESLI SNEED DO Ot R06.00 DYSPNEA, UNSPECIFIED 08/21/2015 LESLI SNEED DO Ot R09.02 HYPOXEMIA 01/14/2018 LESLI SNEED DO Ot J44.9 CHRONIC OBSTRUCTIVE PULMONARY DISEASE, U 01/14/2018 LESLI SNEED DO Ot R06.00 DYSPNEA, UNSPECIFIED 01/14/2018 LESLI SNEED DO Ot R09.02 HYPOXEMIA 01/14/2018 LESLI SNEED DO Ot J44.9 CHRONIC OBSTRUCTIVE PULMONARY DISEASE, U 01/14/2018 LESLI SNEED DO Ot R06.00 DYSPNEA, UNSPECIFIED 01/14/2018 LESLI SNEED DO Ot R09.02 HYPOXEMIA 01/15/2018 LESLI SNEED DO Ot J44.9 CHRONIC OBSTRUCTIVE PULMONARY DISEASE, U 01/15/2018 LESLI SNEED DO Ot R06.00 DYSPNEA, UNSPECIFIED 01/15/2018 LESLI SNEED DO Ot R09.02 HYPOXEMIA Procedures There is no data. Results There is no data. Encounters ACCT No. Visit Date/Time Discharge Status Pt. Type Provider Facility Loc./Unit Complaint [id number] 10/30/2017 15:01:51 10/30/2017 23:59:59 CLS Outpatient Sunil Padmini Rigoberto [id number] 10/16/2017 16:54:57 10/16/2017 23:59:59 CLS Outpatient Padmini Barber Rigoberto [id number] 10/16/2017 10:16:35 10/16/2017 23:59:59 CLS Outpatient Margarita Wells [id number] 10/02/2017 15:41:30 10/02/2017 23:59:59 CLS Outpatient Román Wells [id number] 09/24/2017 11:24:50 09/24/2017 23:59:59 CLS Outpatient Margarita Wells [id number] 09/17/2017 10:16:55 09/17/2017 23:59:59 CLS Outpatient Margarita Wells [id number] 07/17/2017 10:34:06 07/17/2017 23:59:59 CLS Outpatient Margarita Wells [id number] 06/19/2017 10:38:48 06/19/2017 23:59:59 CLS Outpatient Margarita Wells [id number] 02/13/2017 11:15:14 02/13/2017 23:59:59 CUATE Outpatient Margarita Wells [id number] 10/08/2016 14:45:42 10/08/2016 23:59:59 CLS Outpatient Margarita Wells [id number] 09/11/2016 14:16:07 09/11/2016 23:59:59 CUATE Outpatient Margarita Wells [id number] 06/19/2016 15:23:06 06/19/2016 23:59:59 CLS Outpatient Margarita Wells [id number] 05/22/2016 14:34:26 05/22/2016 23:59:59 CLS Outpatient Margarita Wells [id number] 03/21/2016 11:19:03 03/21/2016 23:59:59 CLS Outpatient Georgette Hernández [id number] 01/17/2016 11:18:26 01/17/2016 23:59:59 CLS Outpatient Margarita Wells [id number] 07/11/2015 10:44:12 07/11/2015 23:59:59 CLS Outpatient Margarita Wells [id number] 07/01/2015 10:30:17 07/01/2015 23:59:59 CLS Outpatient SunilPadmini [id number] 06/24/2015 17:29:46 06/24/2015 23:59:59 CLS Outpatient Román Wells [id number] 06/07/2015 10:40:17 06/07/2015 23:59:59 CLS Outpatient Margarita Wells [id number] 05/10/2015 14:24:56 05/10/2015 23:59:59 CLS Outpatient Margarita Wells [id number] 05/08/2015 11:47:31 05/08/2015 23:59:59 CLS Outpatient Kathy Batista [id number] 05/07/2015 17:41:48 05/07/2015 23:59:59 CLS Outpatient Sunil Padmini Franklin [id number] 04/19/2015 11:36:38 04/19/2015 23:59:59 CLS Outpatient Margarita Wells [id number] 04/11/2015 13:53:47 04/11/2015 23:59:59 CLS Outpatient Margarita Wells [id number] 04/06/2015 12:45:23 04/06/2015 23:59:59 CLS Outpatient Kathy Batista [id number] 04/05/2015 15:46:51 04/05/2015 23:59:59 CLS Outpatient Kaylen Wellsnifer [id number] 03/28/2015 15:52:48 03/28/2015 23:59:59 CLS Outpatient Luanninajennifer Margarita [id number] 12/14/2015 19:01:04 12/14/2015 19:01:04 Outpatient [id number] 01/14/2018 06:12:00 01/14/2018 12:43:00 DIS Outpatient LESLI SNEED DO [facility] PREOP BRONCHOSCOPY [id number] 05/30/2015 11:24:00 05/30/2015 23:59:59 CLS Outpatient LESLI SNEED DO [facility] RT HYPOXEMIA, COPD [id number] 01/15/2018 08:06:00 ACT Outpatient LESLI SNEED DO [facility] ENDO LUNG NODULE, COPD, DYSPNEA, HYPOXEMIA REQUIRING OX [id number] 12/03/2017 09:18:15 Document Registration [id number] 09/24/2017 11:57:58 Document Registration [id number] 09/17/2017 21:00:48 Document Registration [id number] 09/17/2017 12:09:25 Document Registration [id number] 09/17/2017 10:38:46 Document Registration [id number] 06/10/2017 13:46:57 Document Registration
--- NOTE | 2018-01-15 09:10 | Progress Note-Pre Operative ---
Pre-Operative Progress Note H&P Reviewed The H&P was reviewed, patient examined and no changes noted. Time Seen by Provider: 09:10 Date H&P Reviewed: Jan 15, 2018 Time H&P Reviewed: 09:10 Pre-Operative Diagnosis: LESLI London DO Jan 15, 2018 09:10
[2018-01-15] MEDS ORDERED: MIDAZOLAM 2 MG/2 ML (VERSED) VIAL ONE ×4 (09:11)
[2018-01-15] MEDS ORDERED: fentaNYL INJECTION 100 MCG/2 ML AMP ONE ×2 (09:11)
--- NOTE | 2018-01-15 09:11 | Pre-Op Note & Conscious Sedat ---
Pre-Operative Progress Note H&P Reviewed The H&P was reviewed, patient examined and no changes noted. Date H&P Reviewed: Jan 15, 2018 Time H&P Reviewed: 09:10 Conscious Sedation Pre-Proced Time Reviewed: 09:10 ASA Class: 3 Airway Mallampati Classification: ([place] appropriate class) I. II. III, IV Lungs Heart ASA score ASA 1: a normal healthy patient ASA 2: a patient with a mild systemic disease (mid diabetes, controlled hypertension, obesity ASA 3: a patient with a severe systemic disease that limits activity (angina , COPD, prior Myocardial infarction) ASA 4: a patient with an incapacitating disease that is a constant threat to life (CHF, renal failure) ASA 5: a moribund patient not expected to survive 24 hrs. (ruptured aneurysm) ASA 6: a declared brain patient whose organs are being harvested. For emergent operations, add the letter E after the classification Grade 3 Sedation Plan: Analgesia, Amnesia, Plan communicated to team members, Discussed options with patient/fam, Discussed risks with patient/fam Note The patient is an appropriate candidate to undergo the planned procedure, sedation, and anesthesia. The patient immediately re-assessed prior to indication. LESLI SNEED DO Jan 15, 2018 09:11
--- NOTE | 2018-01-15 09:11 | Pulmonary Procedures ---
Pulmonary Procedures Date of Procedure Date of Service: Jan 15, 2018 Bronch Bronchoscopy with bronchoalveolar lavage (BAL), transbronchial washes and, transbronchial brushes using fluoroscopy of CARLOS ALBERTO . Preop DX lung nodules Postop DX: same Complications: none After informed consent obtained and formal time out pt was sedated using Fentanyl and Versed. Bronchoscope was advanced through the nare and vocal cords. 1% lidocaine was used to anesthetize vocal cords, epiglottis, miriam, and left/right main stem bronchus. An anatomical tour was undertaken down to the segmental bronchi bilaterally. No endobronchial lesions noted. From the CARLOS ALBERTO a bronchoalveolar lavage (BAL), transbronchial washes and, transbronchial brushes using fluoroscopy of LULwere obtained. Pt tolerated procedure well. No complications noted. Stat CXR is pending. LESLI SNEED DO Jan 15, 2018 09:11
[2018-01-15 10:00] VITALS: BP 135/68
[2018-01-15 10:30] VITALS: BP 158/77
[2018-01-15 10:40] VITALS: BP 158/77
--- NOTE | 2018-01-15 11:47 | Diagnostic Imaging Report ---
INDICATION: Post bronchoscopy. FINDINGS: There is no pneumothorax or pneumomediastinum. Severe five-lobe coarsened interstitial disease involves left greater than right lungs with symmetrical air trapping. No effusion or pneumothorax. IMPRESSION: Extensive interstitial lung disease and symmetrical air trapping. No pneumothorax, aspiration, or other acute abnormality. Dictated by: Dictated on workstation # [id number]
--- NOTE | 2018-01-15 16:37 | Diagnostic Imaging Report ---
CLINICAL INDICATION: Bronchoscopy performed by Dr. Bryant. EXAM: Single limited spot fluoroscopic image of the chest in the procedure room. COMPARISON: Chest x-ray dated 01/15/2018. FINDINGS AND IMPRESSION: Bronchoscope is seen overlying the chest region. Please see surgeon's report for more detail. Fluoroscopy was provided for surgeons and a total of 18.5 seconds and 116.44 mrad was provided. Dictated by: Dictated on workstation # [id number]
== END 2018-01-15 10:40 | disposition home or self-care (01) ==
LOC: ENDO 08:06
PROVIDERS: ATTEND Internal Medicine Critical Care Medicine
DX: R91.8 Other nonspecific abnormal finding of lung field (principal); J96.10 Chronic respiratory failure, unspecified whether with hypoxia or hypercapnia; J44.9 Chronic obstructive pulmonary disease, unspecified; J30.9 Allergic rhinitis, unspecified; F17.210 Nicotine dependence, cigarettes, uncomplicated; Z99.81 Dependence on supplemental oxygen; Z79.82 Long term (current) use of aspirin
CPT/HCPCS: 71045; 87070; 87101; 87116; 87205; 88112; 88305; 88312

== ENCOUNTER → 2018-06-23 | Outpatient (CLI) | payer MEDICARE, OTHER ==
--- NOTE | 2018-06-23 14:37 | Diagnostic Imaging Report ---
PROCEDURE: CT chest without contrast. TECHNIQUE: Multiple contiguous axial images were obtained through the chest without the use of intravenous contrast. INDICATION: Dyspnea, COPD. FINDINGS: The previous CT chest exam performed at [facility] on 12/10/2017 showed emphysematous changes involving both lungs but failed to show any sign of an acute cardiopulmonary abnormality. There was no evidence for a parenchymal lung mass either. On this exam, the chronic pulmonary changes are again visualized and no different. There is still no sign of failure, pneumonia, or of a pleural effusion to indicate an acute abnormality. There is no solid lung mass identified. The heart size is within normal limits. Coronary artery calcifications are evident. The aorta is not abnormally dilated. There is no obvious mediastinal or hilar adenopathy. The thyroid gland is generally unremarkable. As noted on the prior exam, there is increased density in both retroareolar regions, particularly on the right. This may be secondary to gynecomastia. The sections through the upper abdomen fail to show any evidence for an acute abnormality. The small calcification near the tiffanie hepatis seen previously is again evident. The bone windows show no sign of a fracture or of a destructive lesion. IMPRESSION: 1. There are emphysematous changes involving both lungs, but there is no sign of an acute cardiopulmonary abnormality. There is no parenchymal lung mass identified either. 2. There is a question of bilateral gynecomastia. Clinical followup is recommended. Dictated by: Dictated on workstation # [id number]
== END ==
LOC: RAD 12:19
PROVIDERS: ATTEND Nurse Practitioner Family
DX: J43.9 Emphysema, unspecified (principal); J96.20 Acute and chronic respiratory failure, unspecified whether with hypoxia or hypercapnia; J30.9 Allergic rhinitis, unspecified; R91.1 Solitary pulmonary nodule; Z72.0 Tobacco use
CPT/HCPCS: 71250